=== PATIENT | female | born 1955 | race Caucasian/White ===

== ENCOUNTER 2017-10-10 21:20 | Inpatient (IN) ==
[2017-10-11] MEDS ORDERED: Ondansetron 4 MG/2 ML VIAL IVP PRN (01:44)
[2017-10-11] MEDS ORDERED: Acetaminophen 325 MG TABLET PO PRN (01:44)
[2017-10-11] MEDS ORDERED: Naloxone 0.4 MG/ML INJ IVP PRN (01:44)
--- NOTE | 2017-10-11 01:59 | Internal Med History&Physical ---
Date of Encounter: 10/11/17 Time of Encounter: 01:46 Assessment and Plan (1) Pneumonia Current visit: Yes Status: Acute - Bilateral opacities seen on CXR in [facility]. - Temperature of 99.7, WBC of 19.3, complaint of cough - PCN allergic, will give levaquin 750 mg Qday - Currently tolerating room air. Qualifiers: Pneumonia type: due to unspecified organism Laterality: bilateral Lung location: lower lobe of lung Qualified Code(s): J18.9 - Pneumonia, unspecified organism (2) Elevated troponin Current visit: Yes Status: Acute -Troponin of 0.07 in [facility] ED. - Will trend - Likely type II NSTEMI secondary to CHF vs PNA (3) CHF exacerbation Current visit: Yes Status: Acute - Pt denies history of CHF however ED note in ED shows history of CAD with UT in May. - BNP >2000 - Admits to orthopnea but denies LE edema - Will give lasix 40 mg IV Qday and order echocardiogram. - No cardiac workup in past chart review. Qualifiers: Congestive heart failure type: unspecified congestive heart failure type Qualified Code(s): I50.9 - Heart failure, unspecified (4) Anemia Current visit: Yes Status: Chronic - H/H of 9.0/28.9, mcv of 81. - Likely result of anemia of chronic disease vs iron deficiency - No complaints at this time. - Will monitor Qualifiers: Anemia type: iron deficiency Iron deficiency anemia type: unspecified iron deficiency Qualified Code(s): D50.9 - Iron deficiency anemia, unspecified (5) DVT prophylaxis Current visit: Yes Status: Acute - Heparin 5000 units q12 Internal Medicine - H&P: HPI Chief complaint: SOB Admitted From: Hospital to Hospital Transfer Plans for Post Hospital Care: Home History of present illness: Ms. Rollins is a 62 year old female who presents from [place] ED with a complaint of SOB. During time of interview, pt appears confused and does not appear to be a reliable historian. When prompted, she admits to some SOB that brought her to ED. Per [facility] ED note, she reported 5/10 chest pain with her difficulty breathing. Brother had reported concern for percocet overdose following hip surgery on 09/15/17. Pill count at [facility] showed 1 percocet left , filled 10/01, 30 pill supply. She states to this interviewer that she is unsure what she takes for pain but does handle her medications herself. She reportedly lives with brother and sister in law who are not present at time of interview. Pt reports no chest pain, LE edema, fevers, chills, nausea, vomiting , weakness, numbness, tingling during time of interview, but does admit to non productive cough and orthopnea. She reportedly has a hx of DM2, COPD, CHF, CAD with UT in May of 2017. In the [facility] ED, pt was mildly febrile at 99.7, tachycardic at 104, and HTN at 174/87. Labs showed WBC of 19.3 with left shift, H/H of 9.0/28.9, K of 3.4, troponin of 0.07, BNP of 2920. UA negative for infection. UDS positive for opiates and oxycodone but negative for benzos. She reportedly takes xanax at home. CXR showed bilateral airspace disease most compatible for pulmonary edema but cannot rule out PNA. Past Med Surg Social Fam HX - Past Medical History Medical history: arthritis, cancer, CHF, COPD, DVT, diabetes, hyperlipidemia, hypertension, myocardial infarction Psychiatric history: anxiety, depression - Past Surgical History Surgical History: hip replacement - Social History Smoking Status: Current every day smoker Smokeless Tobacco Status: No Alcohol use: none Drug use: none - Family History Mother History Unknown: Yes Father History Unknown: Yes Internal Medicine - H&P: Meds Clopidogrel [Plavix] 75 mg PO DAILY 12/07/15 [History] Dicyclomine [Bentyl] 10 mg PO TID PRN 12/07/15 [History] Gabapentin [Neurontin] 600 mg PO TID 12/07/15 [History] Insulin Glargine [Lantus] 35 unit SQ BID 12/07/15 [History] Paroxetine HCl [Paroxetine] 40 mg PO DAILY 12/07/15 [History] HYDROcodone/Acet 10/325 mg [[place] 10-325 mg] 1 tab PO Q4H PRN #28 tablet [Rx] ALPRAZolam [Xanax 0.5 MG Tablet] 0.5 mg PO TID 05/31/17 [History] Potassium Chloride [K-Tab ER] 20 meq PO DAILY 05/31/17 [History] Aspirin [Lo-Dose Aspirin EC] 81 mg PO DAILY 06/22/17 [History] Atorvastatin [Lipitor] 40 mg PO HS 06/22/17 [History] Furosemide [Lasix] 40 mg PO DAILY 06/22/17 [History] Lisinopril [Zestril] 2.5 mg PO DAILY 06/22/17 [History] Meloxicam 15 mg PO DAILY 06/22/17 [History] Metoprolol [Lopressor] 75 mg PO DAILY 06/22/17 [History] Promethazine [Phenergan] 12.5 mg PO Q8HR 06/22/17 [History] Carvedilol 12.5 mg PO BID 10/10/17 [History] Omeprazole [PriLOSEC] 40 mg PO DAILY 10/10/17 [History] OxyCODONE/APAP 10/325 [Percocet 10/325 MG] 1 each PO Q6HR PRN 10/10/17 [History] 3 Allergy/AdvReac Type Severity Reaction Status Date / Time Penicillins [PCN] Allergy Hives Verified 12/07/15 22:07 NSAIDS (Non-Steroidal AdvReac Palpitation Verified 05/31/17 21:56 Anti-Inflamma s ROS unobtainable: due to mental status All Systems PM: A 10-system review of systems was performed and is negative for pertinent findings except as documented above in the HPI. - Constitutional Constitutional: no anorexia, no excessive sweating, no fatigue, no fever(s), no weakness - Cardiovascular Cardiovascular ROS IM: dyspnea, orthopnea, no chest pain, no diaphoresis, no edema, no lightheadedness - Respiratory Respiratory: cough, dyspnea, no dyspnea on exertion, no excessive phlegm production, no change in phlegm color - Gastrointestinal Gastrointestinal: no abdominal pain, no constipation, no diarrhea, no nausea, no vomiting - Genitourinary Genitourinary: no dysuria - Musculoskeletal Musculoskeletal ROS IM: no muscle weakness, no numbness, no tingling - Neurological Neurological ROS: no numbness, no tingling, no weakness - Constitutional Vitals: Temp Pulse Resp BP Pulse Ox 99.2 F 114 18 177/82 95 10/11/17 00:05 10/11/17 00:05 10/11/17 00:05 10/11/17 00:05 10/11/17 00:05 Exam: Gen.: Vitals noted. No acute distress. AAOx0. Skin warm to touch HEENT: PERRL, oropharynx clear, Normocephalic, atraumatic, dry mucus membranes Cardiac: RRR, no murmur, +S1/S2. Mildly tachycardic Pulmonary: Bilteral rales present in bases. Non labored breathing. Tolerating room air. equal chest expansion Abdomen: soft, mildly tender diffusely, BS noted, no guarding Extremities: no BLE edema, nontender calf, no cyanosis or clubbing Neuro: A&Ox0, moves all extremities, no focal deficits Psych: Confused appearing. unable to answer questions
[2017-10-11] MEDS: *HR* HYDROcodone/Acet 5/325 mg TABLET PO PRN ×2 (04:24→17:26)
[2017-10-11 04:26] LABS: Basophils % 0.2 %; Hematocrit 30.3 % (35.3-44.9); Hemoglobin 9.5 g/dL (11.5-15.4); Immature Granulocytes % 0.6 % (0-4); Lymphocytes # 1.2 K/mcL (0.6-4.6); Lymphocytes % 5.5 %; Mean Corpuscular HGB Conc 31.4 g/dL (31.6-35.5); Mean Corpuscular Hemoglobin 25.2 pg (28.0-33.3); Mean Corpuscular Volume 80.4 fL (83.0-100.0); Mean Platelet Volume 8.8 fL (9.4-12.4); Monocytes # 1.1 K/mcL (0.0-1.3); Monocytes % 5.2 %; Neutrophils # 18.8 K/mcL (1.6-8.9); Platelet Count 618 K/mcL (140-400); Red Blood Count 3.77 M/mcL (3.82-4.97); Red Cell Distribution Width 17.5 % (11.5-14.5); Segmented Neutrophils % 88.5 %
[2017-10-11 04:39] LABS: BUN/Creatinine Ratio 11 (6-26); Blood Urea Nitrogen 8 mg/dL (7-20); Calcium 9.2 mg/dL (8.6-10.8); Carbon Dioxide 21 mEq/L (19-29); Chloride 103 mEq/L (98-109); Glucose 204 mg/dL (70-99); Magnesium 1.4 mg/dL (1.6-2.6); Osmolality,Calculated 294 (280-300); Potassium 3.7 mEq/L (3.5-4.5); Sodium 140 mEq/L (136-145); eGFR For African Americans > 60 (> 60); eGFR For Non-African Americans > 60 (> 60)
[2017-10-11] MEDS ORDERED: *HR* Heparin 5,000 UNIT/ML VIAL IVP ONE (04:54)
[2017-10-11] MEDS ORDERED: *HR* Heparin 5,000 UNIT/ML VIAL IVP PRN ×2 (04:54)
--- NOTE | 2017-10-11 05:04 | Event Note ---
Date of Encounter: 10/11/17 Time of Encounter: 05:03 Patient seen and examined. CHF exacerbation and CAP. Troponin increased to 0.2 so I will start heparin drip. EKG without ST segment shifts.
[2017-10-11] MEDS: Heparin 25,000 UNIT/500 ML D5W 25,000 UNIT/500 ML MLS IVC SCH (05:34)
[2017-10-11 05:52] LABS: INR 1.2; Prothrombin Time 13.4 Seconds (9.4-12.1)
[2017-10-11 05:55] LABS: Activated Partial Thrombo Time 26.9 Seconds (26.0-36.0)
[2017-10-11] MEDS: Aspirin Enteric Coated 81 MG Tablet PO SCH (07:58)
[2017-10-11] MEDS: Insulin LISPRO 300 UNITS/3 ML VIAL SQ SCH ×4 (07:58→21:56)
[2017-10-11] MEDS: Aztreonam 1,000 MG in Water for inj. (sterile) 10 ML IVP SCH ×2 (08:03→17:16)
--- NOTE | 2017-10-11 08:48 | Cardiology Consult Note ---
<Angela Camilo - Last Filed: 10/11/17 10:39> Date of Encounter: 10/11/17 Time of Encounter: 10:26 Assessment and Plan (1) Elevated troponin Current Visit: Yes Status: Acute Presented with chest pain, SOB, and AMS. Vitals: From telemetry average HR over last 12 hrs was 123bpm, in sinus rhythm with PVs and PACs. Weight gain of 8lbs since 09/29/17 office visit. Labs: WB 21.3, BNP 2920. Troponin= 0.46 ( 0.2, 0.07) . Creatinine = 0.76. CXR reports bilateral airspace disease most compatible with pulmonary edema and pneumonia is also possible. Patient diagnosed with CHF and pneumonia. Placed on Lasix 40mg IVP daily and heparin drip. Elevated troponins most likely secondary to demand ischemia 2/2 CHF, pneumonia, and SIRS. With Current presentation, patient does not need a cath at this time, will await echo and records from [facility] for further recommendations. Plan: - continue Heparin drip, keep on for a minimal of 48 hrs -diet: cardiac diet - echo pending results - continue telemetry - continue trending troponins - continue BB, ASA, Coreg, Plavix, Statin. - awaiting further discussion with with Dr. Breen (2) CHF exacerbation Current Visit: Yes Status: Acute shortness of breath and chest pain with a BMP= 2092 and an increase in weight from outpatient visit 09/29/17 to now is 8lbs. Diagnosed with CHF exacerbation. Previous EF from 2013 within normal limits. Awaiting echo results. Currently on Lasix 40mg IVP daily. Plan: - continue Lasix 40mg IVP daily - awaiting echo results Qualifiers: Congestive heart failure type: unspecified congestive heart failure type Qualified Code(s): I50.9 - Heart failure, unspecified (3) Anemia Current Visit: Yes Status: Chronic Patient is chronically anemic, highest hemoglobin in the last 3 years in [facility] was 11.2. MCV currently 80.4, previously in the 60s. No obvious source of bleeding. Consider work up with iron studies. Qualifiers: Anemia type: iron deficiency Iron deficiency anemia type: unspecified iron deficiency Qualified Code(s): D50.9 - Iron deficiency anemia, unspecified (4) Pneumonia Current Visit: Yes Status: Acute Qualifiers: Pneumonia type: due to unspecified organism Laterality: bilateral Lung location: lower lobe of lung Qualified Code(s): J18.9 - Pneumonia, unspecified organism Discussion w patient/family: The assessment and plan as outlined above was discussed with the patient and/or family members who expressed understanding and agreement. All questions were answered. Thank you for involving us in the care of your patient. Please call with any questions. History of Present Illness Consult date: 10/11/17 Requesting physician: Donn Duarte Consult reason: elevated troponin History of present illness: Ms. Rollins is a 62 year old female pmh of DM2, HTN, COPD, DVT, and CAD with [facility] mid RCA 2013 and [place] in May 2017 ([facility] Vasquez ACCOUNT RETENTION REPRESENTATIVE 06/15/17 , 25% blockage but no cath report found) complaining of shortness of breath and chest pain. Patient is currently still having altered mental status and is A&O x 1. Patient when asked if she is having chest pain states a little bit and I asked her to point to where and she pointed to her finger. CXR reports bilateral airspace disease most compatible with pulmonary edema and pneumonia is also possible. Patient was found to have increasing elevated troponin 0.07, 0.20, 0.46. BNP was elevated to 2920. Creatinine 0.76. Patient placed on heparin drip. Given Lasix 40mg IVP. Echo is pending. Cardiac testing: Per Pedro's [facility] note: Dr. Luna cath in May, 25% blockage, hx of stents x 6. Echo 06/2014 showed [id number]%, moderately dilated left atrium.Thickened, trileaflet aortic valve with focal calcification of the LCC and mild aortic stenosis. Mild-moderte tricuspid regurgitation. C 11/2013 There is severe single vessel coronary artery disease (RCA).The left ventricle is preserved with normal contractility, EF 65%Successful PTCA/Drug- Eluting Stent placement in the proximal to mid RCA. Past Med Surg Social Fam HX - Past Medical History Medical history: arthritis, cancer, CHF, COPD, DVT, diabetes, hyperlipidemia, hypertension, myocardial infarction Psychiatric history: anxiety, depression - Past Surgical History Surgical History: hip replacement - Social History Smoking Status: Current every day smoker Smokeless Tobacco Status: No Alcohol use: none Drug use: none - Family History Mother History Unknown: Yes Father History Unknown: Yes Medications and Allergies Clopidogrel [Plavix] 75 mg PO DAILY 12/07/15 [History] Dicyclomine [Bentyl] 10 mg PO TID PRN 12/07/15 [History] Gabapentin [Neurontin] 600 mg PO TID 12/07/15 [History] Insulin Glargine [Lantus] 35 unit SQ BID 12/07/15 [History] Paroxetine HCl [Paroxetine] 40 mg PO DAILY 12/07/15 [History] HYDROcodone/Acet 10/325 mg [[place] 10-325 mg] 1 tab PO Q4H PRN #28 tablet [Rx] ALPRAZolam [Xanax 0.5 MG Tablet] 0.5 mg PO TID 05/31/17 [History] Potassium Chloride [K-Tab ER] 20 meq PO DAILY 05/31/17 [History] Aspirin [Lo-Dose Aspirin EC] 81 mg PO DAILY 06/22/17 [History] Atorvastatin [Lipitor] 40 mg PO HS 06/22/17 [History] Furosemide [Lasix] 40 mg PO DAILY 06/22/17 [History] Lisinopril [Zestril] 2.5 mg PO DAILY 06/22/17 [History] Meloxicam 15 mg PO DAILY 06/22/17 [History] Metoprolol [Lopressor] 75 mg PO DAILY 06/22/17 [History] Promethazine [Phenergan] 12.5 mg PO Q8HR 06/22/17 [History] Carvedilol 12.5 mg PO BID 10/10/17 [History] Omeprazole [PriLOSEC] 40 mg PO DAILY 10/10/17 [History] OxyCODONE/APAP 10/325 [Percocet 10/325 MG] 1 each PO Q6HR PRN 10/10/17 [History] 3 Allergy/AdvReac Type Severity Reaction Status Date / Time Penicillins [PCN] Allergy Hives Verified 12/07/15 22:07 NSAIDS (Non-Steroidal AdvReac Palpitation Verified 05/31/17 21:56 Anti-Inflamma s All Systems Review: A 10-system review of systems was performed and is negative for pertinent findings except as documented above in the HPI. Physical Examination Vital Signs, Last 4 Hours Temp Pulse Resp BP Pulse Ox 10/11/17 07:21 98.9 F 127 18 177/97 94 General: Conversant, Other (A&O x1, knows her name ) HEENT: Atraumatic, Normocephaly, Mucus Membranes Moist Neck: No JVD, Normal carotid pulses Cardiac: Reg Rate and Rhythm, Normal S1 and S2, No Murmur, Other Lungs: Normal Breath Sounds, No Wheeze, Rales, Rhonchi Neuro: Alert and responsive, No focal deficits noted Abdomen: Soft, Non-Tender Skin: No rashes noted on visualized skin Extremities: No Clubbing, No Cyanosis, No Edema, Normal Pulses, Other (will not straighten R knee completely, ) Results 10/11/17 04:16 10/11/17 04:16 Lab Results 10/11/17 10/11/17 10/11/17 04:16 04:16 04:16 WBC 21.3 H Hgb 9.5 L Hct 30.3 L Plt Count 618 H INR APTT Sodium 140 Potassium 3.7 Chloride 103 Carbon Dioxide 21 BUN 8 Creatinine 0.76 Glucose 204 H Calcium 9.2 Magnesium 1.4 L Troponin I 0.20 H* 10/11/17 05:33 WBC Hgb Hct Plt Count INR 1.2 APTT 26.9 Sodium Potassium Chloride Carbon Dioxide BUN Creatinine Glucose Calcium Magnesium Troponin I - Imaging and Cardiology Chest Xray: report reviewed - EKG Interpretation EKG results cardiology: personally reviewed (sinus tachycardia) Consult Discharge Plan - Plan Referrals: Jessica Vasquez, ACCOUNT RETENTION REPRESENTATIVE [Primary Care Provider] - <KraigadrianKeyana - Last Filed: 10/11/17 18:03> Date of Encounter: 10/11/17 - Attending Attestation I examined this patient and my medical decision-making was reviewed with the Resident Physician. I agree with the documented findings, disposition and treatment plan as described except to the extent set forth below. Ms. Rollins presents with SOB and AMS, found to have pneumonia and meets SIRS criteria. Incidentally, had elevated troponin peak at 0.46 in this setting. The patient denies chest pain to me (oriented presently to place and person but not time). Does admit to recent development of worsening SOB. She has known CAD having recently undergone cath at [facility] in May 2017. Previous assessment of LVEF here at [place] was normal. Recommend checking echo and obtaining records from [facility]. Ok to continue IV diuresis, BB, statin and antiplatelet agent. She is anticoagulated with heparin. Assessment and Plan Discussion w patient/family: The assessment and plan as outlined above was discussed with the patient and/or family members who expressed understanding and agreement. All questions were answered. Thank you for involving us in the care of your patient. Please call with any questions. History of Present Illness History of present illness: Ms. Rollins is a 62 year old female All Systems Review: A 10-system review of systems was performed and is negative for pertinent findings except as documented above in the HPI. Physical Examination Vital Signs, Last 4 Hours Temp Pulse Resp BP Pulse Ox 10/11/17 15:20 98.4 F 106 16 129/80 96 Results 10/11/17 04:16 10/11/17 04:16 Lab Results 10/11/17 10/11/17 10/11/17 04:16 04:16 04:16 WBC 21.3 H Hgb 9.5 L Hct 30.3 L Plt Count 618 H INR APTT Sodium 140 Potassium 3.7 Chloride 103 Carbon Dioxide 21 BUN 8 Creatinine 0.76 Glucose 204 H Calcium 9.2 Magnesium 1.4 L Troponin I 0.20 H* 10/11/17 10/11/17 10/11/17 05:33 10:02 12:21 WBC Hgb Hct Plt Count INR 1.2 APTT 26.9 39.5 H Sodium Potassium Chloride Carbon Dioxide BUN Creatinine Glucose Calcium Magnesium Troponin I 0.46 H* 10/11/17 16:28 WBC Hgb Hct Plt Count INR APTT Sodium Potassium Chloride Carbon Dioxide BUN Creatinine Glucose Calcium Magnesium Troponin I 0.41 H*
[2017-10-11] MEDS ORDERED: *HR* Metoprolol 5 MG/5 ML VIAL IVP ONE ×2 (09:20→09:28)
[2017-10-11] MEDS: Levofloxacin 750 MG/150 ML 750 MG/150 ML BAG IVPB SCH (12:13)
[2017-10-11] MEDS: Furosemide 40 MG/4 ML VIAL IVP SCH (12:13)
--- NOTE | 2017-10-11 14:08 | Event Note ---
Date of Encounter: 10/11/17 Time of Encounter: 12:20 Patient is a 62y/o female admitted for shortness of breath secondary to CHF decompensation, elevated TNI, and PNA. She is seen and examined at bedside. It is unclear if the patient has been compliant with her home medications and I am unable to reach any family member. She was noted to remain tachycardic and hypertensive despite her morning dose of carvedilol due to which one time dose of Lopressor was given, she responded well to therapy. She is also noted to have worsening TNI and cardiology is on board. She is to continue heparin gtt, awaiting echo results, increased home dose of Carvedilol to 25mg PO BID. Pt reports of feeling better since her hospitalization. noted to have hypomagnesemia, Mg supplemented will continue to monitor electrolytes and replace as needed will continue empiric IV abx for PNA and follow up blood cultures
[2017-10-12] MEDS: Aztreonam 1,000 MG in Water for inj. (sterile) 10 ML IVP SCH ×3 (00:02→16:02)
[2017-10-12] MEDS: Heparin 25,000 UNIT/500 ML D5W 25,000 UNIT/500 ML MLS IVC SCH ×2 (00:04→21:52)
[2017-10-12] MEDS: *HR* HYDROcodone/Acet 5/325 mg TABLET PO PRN ×2 (00:18→16:11)
[2017-10-12 04:10] LABS: Basophils % 0.2 %; Eosinophils % 0.2 %; Hematocrit 30.1 % (35.3-44.9); Hemoglobin 9.2 g/dL (11.5-15.4); Immature Granulocytes % 0.5 % (0-4); Lymphocytes # 1.7 K/mcL (0.6-4.6); Lymphocytes % 13.7 %; Mean Corpuscular HGB Conc 30.6 g/dL (31.6-35.5); Mean Corpuscular Hemoglobin 24.6 pg (28.0-33.3); Mean Corpuscular Volume 80.5 fL (83.0-100.0); Mean Platelet Volume 8.9 fL (9.4-12.4); Monocytes # 0.8 K/mcL (0.0-1.3); Monocytes % 6.8 %; Neutrophils # 9.5 K/mcL (1.6-8.9); Platelet Count 570 K/mcL (140-400); Red Blood Count 3.74 M/mcL (3.82-4.97); Red Cell Distribution Width 17.5 % (11.5-14.5); Segmented Neutrophils % 78.6 %
[2017-10-12 04:18] LABS: BUN/Creatinine Ratio 14 (6-26); Blood Urea Nitrogen 12 mg/dL (7-20); Calcium 9.1 mg/dL (8.6-10.8); Carbon Dioxide 30 mEq/L (19-29); Chloride 98 mEq/L (98-109); Glucose 198 mg/dL (70-99); Magnesium 1.6 mg/dL (1.6-2.6); Osmolality,Calculated 293 (280-300); Phosphorous 3.4 mg/dL (2.3-4.7); Potassium 3.1 mEq/L (3.5-4.5); Sodium 139 mEq/L (136-145); eGFR For African Americans > 60 (> 60); eGFR For Non-African Americans > 60 (> 60)
[2017-10-12] MEDS: Insulin LISPRO 300 UNITS/3 ML VIAL SQ SCH ×5 (08:30→21:47)
[2017-10-12] MEDS: Levofloxacin 750 MG/150 ML 750 MG/150 ML BAG IVPB SCH (08:30)
[2017-10-12] MEDS: Furosemide 40 MG/4 ML VIAL IVP SCH (08:31)
[2017-10-12] MEDS: Aspirin Enteric Coated 81 MG Tablet PO SCH (08:31)
--- NOTE | 2017-10-12 13:55 | Cardiology Progress Note ---
<Angela Camilo - Last Filed: 10/12/17 16:51> Date of Encounter: 10/12/17 Time of Encounter: 10:00 Assessment and Plan (1) Elevated troponin Current Visit: Yes Status: Acute Presented with chest pain, SOB, and AMS. Vitals: From telemetry average HR over last 12 hrs was 123bpm, in sinus rhythm with PVs and PACs. Weight gain of 8lbs since 09/29/17 office visit. Labs: WB 21.3, BNP 2920. Troponin= 0.41( 0.2, 0.07, 0.46). Creatinine = 0.76. CXR reports bilateral airspace disease most compatible with pulmonary edema and pneumonia is also possible. Patient diagnosed with CHF and pneumonia. Placed on Lasix 40mg IVP daily and heparin drip. Elevated troponins most likely secondary to demand ischemia 2/2 CHF, pneumonia, and SIRS. Echo today showed EF 30% and global severe hypokinesis. Obtained records from [facility] and Echo from 06/23/17 showed EF 20-25% and cath was performed at that time and no intervention was performed. Recommend medical management. Plan: - can d/c Heparin drip and initiate DVT prophylaxis - diet: cardiac diet - continue telemetry - continue BB, ASA, Coreg, Plavix, Statin. - awaiting Dr. Breen's further medical management optimization recommendations (2) CHF exacerbation Current Visit: Yes Status: Acute shortness of breath and chest pain with a BMP= 2092 and an increase in weight from outpatient visit 09/29/17 to now is 8lbs. Diagnosed with CHF exacerbation. Previous EF from 2013 within normal limits. Currently on Lasix 40mg IVP daily. Echo results from today showed EF 30% grossly, severe global hypokinesis, mild left ventricular diastolic dysfunction. mild to moderate calcified aortic valve leaflets. Plan: - continue Lasix 40mg IVP daily Qualifiers: Congestive heart failure type: unspecified congestive heart failure type Qualified Code(s): I50.9 - Heart failure, unspecified (3) Anemia Current Visit: Yes Status: Chronic Patient is chronically anemic, highest hemoglobin in the last 3 years in [facility] was 11.2. MCV currently 80.4, previously in the 60s. No obvious source of bleeding. Consider work up with iron studies. Qualifiers: Anemia type: iron deficiency Iron deficiency anemia type: unspecified iron deficiency Qualified Code(s): D50.9 - Iron deficiency anemia, unspecified (4) Pneumonia Current Visit: Yes Status: Acute Qualifiers: Pneumonia type: due to unspecified organism Laterality: bilateral Lung location: lower lobe of lung Qualified Code(s): J18.9 - Pneumonia, unspecified organism Discussion w patient/family: The assessment and plan as outlined above was discussed with the patient and/or family members who expressed understanding and agreement. All questions were answered. Thank you for involving us in the care of your patient. Please call with any questions. Subjective Principal diagnosis: CHF Interval history: Today patient is still altered as she is A&O x 1, she is able to state her name. Patient denies pain anywhere including chest pain. Objective Vital Signs, Last 4 Hours Temp Pulse Resp BP Pulse Ox 10/12/17 13:46 99.1 F 105 15 89/60 95 General: Conversant, No Apparent Distress HEENT: Atraumatic, Normocephaly, Mucus Membranes Moist Neck: No JVD Cardiac: Reg Rate and Rhythm, No Murmur, Other (S3 heard ) Lungs: Normal Breath Sounds, No Wheeze, Rales, Rhonchi Neuro: Alert and responsive, No focal deficits noted Abdomen: Soft, Non-Tender Skin: No rashes noted on visualized skin Musculoskeletal: No Chest Wall Tenderness Extremities: No Clubbing, No Cyanosis, No Edema, Normal Pulses Results 10/12/17 03:55 10/12/17 03:55 Lab Results 10/11/17 10/11/17 10/12/17 16:28 19:40 03:55 WBC 12.1 H Hgb 9.2 L Hct 30.1 L Plt Count 570 H APTT 95.6 H D Sodium Potassium Chloride Carbon Dioxide BUN Creatinine Glucose Calcium Magnesium Troponin I 0.41 H* 10/12/17 10/12/17 10/12/17 03:55 04:30 10:39 WBC Hgb Hct Plt Count APTT 43.8 H D 39.3 H Sodium 139 Potassium 3.1 L Chloride 98 Carbon Dioxide 30 H BUN 12 Creatinine 0.86 Glucose 198 H Calcium 9.1 Magnesium 1.6 Troponin I Consult Discharge Plan - Plan Referrals: Jessica Vasquez, SENIOR ANIMAL TRAINER [Primary Care Provider] - <Keyana Breen - Last Filed: 10/12/17 17:58> Date of Encounter: 10/12/17 Assessment and Plan Discussion w patient/family: I examined this patient and my medical decision-making was reviewed with the Resident Physician. I agree with the documented findings, disposition and treatment plan. Ms. Rollins's echo returned with reduced LV systolic function, EF 30%. Records obtained from [facility] document EF 20-25%. She underwent LHC in which intervention was not performed. Further ischemic workup is not warranted at this time. Troponin elevation appears secondary to acute systolic heart failure. Furthermore, the patient's mentation is altered - she is not oriented to person , place or time today. Recommend conservative medical management. She is net negative 2L - continue another 24h of IV diuresis. Consider repeat CXR tomorrow for re-evaluation of pulmonary edema and BNP. If improved, would recommend transitioning to oral diuretic. Otherwise, continue antiplatelet therapy and BB. Will add low dose ACEI. Objective Vital Signs, Last 4 Hours Temp Pulse Resp BP Pulse Ox 10/12/17 16:45 98.0 F 90 15 119/70 94 10/12/17 14:13 98 102/68 Results 10/12/17 03:55 10/12/17 03:55 Lab Results 10/11/17 10/12/17 10/12/17 19:40 03:55 03:55 WBC 12.1 H Hgb 9.2 L Hct 30.1 L Plt Count 570 H APTT 95.6 H D Sodium 139 Potassium 3.1 L Chloride 98 Carbon Dioxide 30 H BUN 12 Creatinine 0.86 Glucose 198 H Calcium 9.1 Magnesium 1.6 10/12/17 10/12/17 04:30 10:39 WBC Hgb Hct Plt Count APTT 43.8 H D 39.3 H Sodium Potassium Chloride Carbon Dioxide BUN Creatinine Glucose Calcium Magnesium
--- NOTE | 2017-10-12 14:06 | Internal Med Progress Note ---
Date of Encounter: 10/12/17 Time of Encounter: 11:55 - Assessment and plan (1) Elevated troponin Current Visit: Yes Status: Acute Assessment and plan: Given CHF decompensation, elevated TNI can be secondary to demand ischemia Cardiology on board awaiting follow up in regards to echo findings and further management will continue heparin gtt for a total of 48hours continue BB, ASA, Statin, Plavix (2) CHF exacerbation Current Visit: Yes Status: Acute Assessment and plan: Echo reported LVEF of 30% with severe global hypokinesis, mild LV diastolic dysfunction continue IV diuresis cardiology on board and consultation appreciated Qualifiers: Congestive heart failure type: unspecified congestive heart failure type Qualified Code(s): I50.9 - Heart failure, unspecified (3) Pneumonia Current Visit: Yes Status: Acute Assessment and plan: Leukocytosis improving will continue empiric IV abx will f/u blood culture report Qualifiers: Pneumonia type: due to unspecified organism Laterality: bilateral Lung location: lower lobe of lung Qualified Code(s): J18.9 - Pneumonia, unspecified organism (4) Hypokalemia Current Visit: Yes Status: Acute Assessment and plan: K supplemented continue to monitor electrolytes and replace as needed (5) Anemia Current Visit: Yes Status: Chronic Assessment and plan: H&H low but acceptable no acute bleeding reported at this time will continue to monitor will obtain iron studies, ferritin, folate, vit B12. Qualifiers: Anemia type: iron deficiency Iron deficiency anemia type: unspecified iron deficiency Qualified Code(s): D50.9 - Iron deficiency anemia, unspecified (6) DVT prophylaxis Current Visit: Yes Status: Acute - Subjective Interval history: Patient seen and examined at bedside. patient resting in chair and reports of feeling better compared to previous day. Pt only oriented to self. Denies any pain at this time. 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 Absent: respiratory distress, wheezes - Cardiovascular Cardiovascular exam: Present: RRR, +S1, +S2 - GI/Abdominal GI/Abdominal exam: Present: normal bowel sounds, soft, no peritoneal signs. Absent: distended, tenderness - Extremities Exam Extremities exam: Present: warm, radial pulses palpable and symmetrical. Absent : calf tenderness - Neurological Exam Neurological exam: Present: alert - Psychiatric Psychiatric exam: Present: normal affect, normal mood Internal Medicine: Result - Labs CBC & Chem 7: 10/12/17 03:55 10/12/17 03:55 Labs: Short CBC 10/12/17 Range/Units 03:55 WBC 12.1 H (4.3-11.1) K/mcL Hgb 9.2 L (11.5-15.4) g/dL Hct 30.1 L (35.3-44.9) % Plt Count 570 H (140-400) K/mcL Neutrophils # 9.5 H (1.6-8.9) K/mcL BMP 10/12/17 03:55 Sodium 139 Potassium 3.1 L Chloride 98 Carbon Dioxide 30 H BUN 12 Creatinine 0.86 Glucose 198 H Calcium 9.1 Cardiac Enzymes 10/11/17 Range/Units 16:28 Troponin I 0.41 H* (0-0.03) ng/mL - ABG Interpretation ABG results: PT/INR, D-dimer PT 13.4 Seconds (9.4-12.1) H 10/11/17 05:33 - Impressions Impressions Echocardiogram 10/11/17 02:27 Impressions: LVEF 30%. Grossly, severe global hypokinesis. Mild left ventricular diastolic dysfunction. Normal right ventricular structure and function. Mild to moderately calcified aortic valve leaflets. No aortic stenosis detected by Doppler. Gradients may be underestimated. No evidence of pulmonary hypertension. Future studies should be completed with contrast enhancement. LV function has decreased compared to prior studies from 2014. Left Ventricular Wall Motion: Rest Echo Findings The apex, apical inferior, mid inferior, basal inferior, apical anterior, mid anterior, basal anterior, apical septal, mid inferior septal, basal inferior septal, apical lateral, mid anterior lateral, basal anterior lateral, mid anterior septal, mid inferior lateral, basal anterior septal and basal inferior lateral shannon were hypokinetic. Findings: Study Quality * Technically sub-optimal due to poor echocardiographic windows. ECG Findings * Normal sinus rhythm. Left Ventricle * LVEF 30%. Grossly, severe global hypokinesis. * Normal LV chamber size. * Mild left ventricular diastolic dysfunction. Right Ventricle * Normal right ventricular structure and function. Left Atrium * Moderate to severely dilated left atrium. Right Atrium * Mildly dilated right atrium. Interatrial Septum * Interatrial septum not well evaluated. Aortic Valve * Trileaflet aortic valve. * Mild to moderately calcified aortic valve leaflets. * No aortic regurgitation. * No aortic stenosis. Mitral Valve * Mitral valve not well visualized. * Trace mitral regurgitation. * No mitral stenosis. Tricuspid Valve * Normal tricuspid valve structure and function. * Trace tricuspid regurgitation. * No evidence of pulmonary hypertension. Pulmonic Valve * Pulmonic valve not well visualized. Aorta * Normally sized aortic root. Pericardium * The pericardium appears normal. IVC * Normal IVC dimensions and inspiratory collapse. Pulmonary Artery * Normal visualized portions of the main pulmonary artery. Consult Discharge Plan - Plan Referrals: Jessica Vasquez, NICOLETTE [Primary Care Provider] -
[2017-10-12] MEDS ORDERED: Dextrose Gel 15 GM PO PRN ×2 (14:16)
[2017-10-12] MEDS ORDERED: D5% in Water 1,000 ML IVC PRN (14:16)
[2017-10-12] MEDS ORDERED: *HR* Dextrose 50 % in Water (Syg) 50 ML SYRINGE IVP PRN (14:16)
[2017-10-12] MEDS: Gabapentin 300 MG CAPSULE PO SCH ×2 (16:02→20:33)
[2017-10-12] MEDS ORDERED: *HR* Promethazine 25 MG/ML VIAL IVP PRN (18:10)
[2017-10-12] MEDS ORDERED: Insulin DETEMIR 100 UNIT/ML X5UNITS SQ SCH (21:00)
[2017-10-13] MEDS: Aztreonam 1,000 MG in Water for inj. (sterile) 10 ML IVP SCH ×2 (00:07→07:53)
[2017-10-13 01:48] LABS: Basophils # 0.1 K/mcL (0.0-0.2); Basophils % 0.4 %; Eosinophils # 0.1 K/mcL (0.0-0.6); Eosinophils % 0.4 %; Hematocrit 29.8 % (35.3-44.9); Hemoglobin 9.1 g/dL (11.5-15.4); Immature Platelets 2.1 % (1.1-6.1); Lymphocytes # 2.2 K/mcL (0.6-4.6); Lymphocytes % 15.9 %; Mean Corpuscular HGB Conc 30.5 g/dL (31.6-35.5); Mean Corpuscular Hemoglobin 24.9 pg (28.0-33.3); Mean Corpuscular Volume 81.6 fL (83.0-100.0); Mean Platelet Volume 9.1 fL (9.4-12.4); Monocytes # 1.2 K/mcL (0.0-1.3); Monocytes % 8.7 %; Neutrophils # 10.2 K/mcL (1.6-8.9); Platelet Count 598 K/mcL (140-400); Red Blood Count 3.65 M/mcL (3.82-4.97); Red Cell Distribution Width 18.1 % (11.5-14.5); Segmented Neutrophils % 73.6 %
[2017-10-13 02:05] LABS: Hypochromasia Present (Not Present)
[2017-10-13 02:06] LABS: Anisocytosis 1+ (Not Present); Platelet Estimate Increased (Normal)
[2017-10-13 05:57] LABS: Magnesium 1.6 mg/dL (1.6-2.6); Potassium 3.1 mEq/L (3.5-4.5)
[2017-10-13 07:22] LABS: Folate 9.9 ng/mL (7.0-31.4)
[2017-10-13] MEDS: *HR* HYDROcodone/Acet 5/325 mg TABLET PO PRN (07:33)
[2017-10-13] MEDS: Furosemide 40 MG/4 ML VIAL IVP SCH (07:36)
[2017-10-13] MEDS: Insulin LISPRO 300 UNITS/3 ML VIAL SQ SCH ×4 (07:50→23:07)
[2017-10-13] MEDS: Gabapentin 300 MG CAPSULE PO SCH ×3 (07:53→23:04)
[2017-10-13] MEDS: Aspirin Enteric Coated 81 MG Tablet PO SCH (07:53)
[2017-10-13] MEDS: Levofloxacin 750 MG/150 ML 750 MG/150 ML BAG IVPB SCH (07:54)
--- NOTE | 2017-10-13 11:35 | Cardiology Progress Note ---
<Angela aCmilo - Last Filed: 10/13/17 11:28> Date of Encounter: 10/13/17 Time of Encounter: 10:00 Assessment and Plan (1) CHF exacerbation Current Visit: Yes Status: Acute shortness of breath and chest pain with a BMP= 2 and an increase in weight from outpatient visit 09/29/17 to now is 8lbs. Diagnosed with CHF exacerbation. Previous EF from 2013 within normal limits. Currently on Lasix 40mg IVP daily. Echo results from today showed EF 30% grossly, severe global hypokinesis, mild left ventricular diastolic dysfunction. mild to moderate calcified aortic valve leaflets. CXR today showed mild pulmonary vascular congestion. Despite seeing mild pulmonary vascular congestion patient is well diuresed based off of physical exam, output, and creatinine increase therefore we will decrease the Lasix to 20mg po daily. Recommend sending patient home on Lasix 20mg po daily. F/u with primary clerical associate at [facility] in 2-3 weeks. Plan: - decrease lasix to 20mg po daily - diet: cardiac diet - continue telemetry - continue BB, ASA, Coreg, Plavix, Statin. - f/u with primary clerical associate in 2-3 weeks Qualifiers: Congestive heart failure type: unspecified congestive heart failure type Qualified Code(s): I50.9 - Heart failure, unspecified (2) Elevated troponin Current Visit: Yes Status: Acute Presented with chest pain, SOB, and AMS. Vitals: From telemetry average HR over last 12 hrs was 123bpm, in sinus rhythm with PVs and PACs. Weight gain of 8lbs since 09/29/17 office visit. Labs: WB 21.3, BNP 2920. Troponin= 0.41( 0.2, 0.07, 0.46). Creatinine = 0.76. CXR reports bilateral airspace disease most compatible with pulmonary edema and pneumonia is also possible. Patient diagnosed with CHF and pneumonia. Placed on Lasix 40mg IVP daily and heparin drip. Elevated troponins most likely secondary to demand ischemia 2/2 CHF, pneumonia, and SIRS. Echo 10/13/17 showed EF 30% and global severe hypokinesis. Obtained records from [facility] and Echo from 06/23/17 showed EF 20-25% and cath was performed at that time and no intervention was performed. Recommend medical management. Plan: - decrease lasix to 20mg po daily - diet: cardiac diet - continue telemetry - continue BB, ASA, Coreg, Plavix, Statin. - f/u with primary clerical associate in 2-3 weeks (3) Anemia Current Visit: Yes Status: Chronic Patient is chronically anemic, highest hemoglobin in the last 3 years in [facility] was 11.2. MCV currently 80.4, previously in the 60s. Hemoglobin stable. No obvious source of bleeding. Consider work up with iron studies. Qualifiers: Anemia type: iron deficiency Iron deficiency anemia type: unspecified iron deficiency Qualified Code(s): D50.9 - Iron deficiency anemia, unspecified (4) Pneumonia Current Visit: Yes Status: Acute Qualifiers: Pneumonia type: due to unspecified organism Laterality: bilateral Lung location: lower lobe of lung Qualified Code(s): J18.9 - Pneumonia, unspecified organism Discussion w patient/family: The assessment and plan as outlined above was discussed with the patient and/or family members who expressed understanding and agreement. All questions were answered. Thank you for involving us in the care of your patient. Please call with any questions. Subjective Principal diagnosis: CHF Interval history: Today patient is doing much better and is A&Ox 3. Patient says she is feeling good today and back to her normal self. Objective Vital Signs, Last 4 Hours Temp Pulse Resp BP Pulse Ox 10/13/17 09:00 99.3 F 91 16 94/59 92 General: Conversant, No Apparent Distress HEENT: Atraumatic, Normocephaly, Mucus Membranes Moist Neck: No JVD Cardiac: Reg Rate and Rhythm, Normal S1 and S2, No Murmur Lungs: Normal Breath Sounds, No Wheeze, Rales, Rhonchi Neuro: Alert and responsive, No focal deficits noted Abdomen: Soft, Non-Tender Skin: No rashes noted on visualized skin Extremities: No Clubbing, No Cyanosis, No Edema, Normal Pulses Results 10/13/17 01:25 10/13/17 05:31 Lab Results 10/12/17 10/13/17 10/13/17 18:15 01:25 01:25 WBC 13.9 H Hgb 9.1 L Hct 29.8 L Plt Count 598 H APTT 84.1 H D 65.1 H Sodium Potassium Chloride Carbon Dioxide BUN Creatinine Glucose Calcium Magnesium 10/13/17 05:31 WBC Hgb Hct Plt Count APTT Sodium 137 Potassium 3.1 L Chloride 95 L Carbon Dioxide 31 H BUN 21 H Creatinine 1.12 H Glucose 197 H Calcium 9.0 Magnesium 1.6 Consult Discharge Plan - Plan Referrals: Jessica Vasquez, NICOLETTE [Primary Care Provider] - <Keyana Breen - Last Filed: 10/13/17 14:20> Date of Encounter: 10/13/17 Assessment and Plan Discussion w patient/family: I examined this patient and my medical decision-making was reviewed with the Resident Physician. I agree with the documented findings, disposition and treatment plan. Ms. Rollins's mentation is normal this morning. She is alert, conversant and oriented x 3. We discussed the findings of her echo this admission noting that LV systolic function is not new and was found to be decreased at [facility] in May of this year. She is able to corroborate that and remembers undergoing LHC at that time which did not warrant intervention. Recommend continued medical management at this time - LV systolic function mildly improved from prior study. She also appears euvolemic on exam today and renal function has started to decline - recommend transitioning to PO lasix. Continue BB, ACEI, statin and antiplatelet agent. Will sign off. She would like to follow up with [facility] Cardiology. Objective Vital Signs, Last 4 Hours Temp Pulse Resp BP Pulse Ox 10/13/17 12:46 99.3 F 78 16 90/55 92 Results 10/13/17 01:25 10/13/17 05:31 Lab Results 10/12/17 10/13/17 10/13/17 18:15 01:25 01:25 WBC 13.9 H Hgb 9.1 L Hct 29.8 L Plt Count 598 H APTT 84.1 H D 65.1 H Sodium Potassium Chloride Carbon Dioxide BUN Creatinine Glucose Calcium Magnesium 10/13/17 05:31 WBC Hgb Hct Plt Count APTT Sodium 137 Potassium 3.1 L Chloride 95 L Carbon Dioxide 31 H BUN 21 H Creatinine 1.12 H Glucose 197 H Calcium 9.0 Magnesium 1.6
[2017-10-13] MEDS: Furosemide 20 MG TABLET PO SCH ×2 (12:05→12:06)
[2017-10-13] MEDS: *HR* OxyCODONE/APAP 10/325 TABLET PO PRN ×2 (12:09→19:11)
--- NOTE | 2017-10-13 12:25 | Internal Med Progress Note ---
Date of Encounter: 10/13/17 Time of Encounter: 11:45 - Assessment and plan (1) Elevated troponin Current Visit: Yes Status: Acute Assessment and plan: Given CHF decompensation, elevated TNI can be secondary to demand ischemia Cardiology on board no acute surgical intervention, medical optimization continue BB, ASA, Statin, Plavix (2) CHF exacerbation Current Visit: Yes Status: Acute Assessment and plan: Echo reported LVEF of 30% with severe global hypokinesis, mild LV diastolic dysfunction cardiology on board and consultation appreciated d/kristine IV lasix and started PO lasix will continue to monitor strict I/Os, fluid restriction diet, daily weights Qualifiers: Congestive heart failure type: unspecified congestive heart failure type Qualified Code(s): I50.9 - Heart failure, unspecified (3) Pneumonia Current Visit: Yes Status: Acute Assessment and plan: Leukocytosis improving will continue empiric IV abx (Levaquin for a total of 7 days) will f/u blood culture report Qualifiers: Pneumonia type: due to unspecified organism Laterality: bilateral Lung location: lower lobe of lung Qualified Code(s): J18.9 - Pneumonia, unspecified organism (4) Hypokalemia Current Visit: Yes Status: Acute Assessment and plan: K supplemented continue to monitor electrolytes and replace as needed (5) Anemia Current Visit: Yes Status: Chronic Assessment and plan: H&H low but acceptable no acute bleeding reported at this time will continue to monitor iron studies consistent with iron def anemia, will start iron supplementation Qualifiers: Anemia type: iron deficiency Iron deficiency anemia type: unspecified iron deficiency Qualified Code(s): D50.9 - Iron deficiency anemia, unspecified (6) DVT prophylaxis Current Visit: Yes Status: Acute Assessment and plan: Heparin SQ - Subjective Interval history: Patient seen and examined at bedside. Sitting in bed and AAO x 3. States she has had episodes like this in the past where she becomes very confused. No overnight issues reported. Will d/c iv lasix and start on PO lasix likely d/c in am pending ECF placement Currently in agreement to going to ECF - Constitutional Vitals: Temp Pulse Resp BP Pulse Ox 99.3 F 91 16 94/59 92 10/13/17 09:00 10/13/17 09:00 10/13/17 09:00 10/13/17 09:00 10/13/17 09:00 General appearance: Present: A&O X 3, no acute distress, answers questions appropriately - Head Head exam: Present: atraumatic, normocephalic - Eye Eye exam: Present: normal appearance, conjuntiva pink, sclera anicteric - Respiratory Respiratory exam: Present: rales (minimal bibasilar rales-improved from previous day). Absent: respiratory distress, wheezes - Cardiovascular Cardiovascular exam: Present: RRR, +S1, +S2. Absent: diastolic murmur, gallop, rubs, systolic murmur - GI/Abdominal GI/Abdominal exam: Present: normal bowel sounds, soft, no peritoneal signs. Absent: distended, tenderness - Extremities Exam Extremities exam: Present: warm, radial pulses palpable and symmetrical. Absent : calf tenderness, pedal edema - Neurological Exam Neurological exam: Present: alert, oriented X3 - Psychiatric Psychiatric exam: Present: normal affect, normal mood Internal Medicine: Result - Labs CBC & Chem 7: 10/13/17 01:25 10/13/17 05:31 Labs: Short CBC 10/13/17 Range/Units 01:25 WBC 13.9 H (4.3-11.1) K/mcL Hgb 9.1 L (11.5-15.4) g/dL Hct 29.8 L (35.3-44.9) % Plt Count 598 H (140-400) K/mcL Neutrophils # 10.2 H (1.6-8.9) K/mcL BMP 10/13/17 05:31 Sodium 137 Potassium 3.1 L Chloride 95 L Carbon Dioxide 31 H BUN 21 H Creatinine 1.12 H Glucose 197 H Calcium 9.0 - ABG Interpretation ABG results: PT/INR, D-dimer PT 13.4 Seconds (9.4-12.1) H 10/11/17 05:33 - Impressions Impressions Chest X-Ray 10/13/17 08:27 IMPRESSION: Stable cardiomegaly. Mild pulmonary vascular congestion. Discoid atelectasis at the left lung base. Large hiatal hernia. D/ / Carson Cook MD / Carson Cook MD Interpreting Provider: Carson Cook MD Consult Discharge Plan - Plan Referrals: Jessica Vasquez, NICOLETTE [Primary Care Provider] -
[2017-10-13] MEDS: *HR* Heparin 5,000 UNIT/ML VIAL SQ SCH (16:52)
[2017-10-13] MEDS: ALPRAZolam 0.5 MG TABLET PO PRN (17:19)
[2017-10-13] MEDS ORDERED: *HR* Morphine 2 MG/ML SYRINGE IVP PRN (22:54)
[2017-10-14] MEDS: Insulin DETEMIR 100 UNIT/ML X5UNITS SQ SCH ×2 (00:49→22:45)
[2017-10-14] MEDS: ALPRAZolam 0.5 MG TABLET PO PRN (01:05)
[2017-10-14] MEDS: *HR* OxyCODONE/APAP 10/325 TABLET PO PRN ×3 (01:15→20:12)
[2017-10-14] MEDS: Insulin LISPRO 300 UNITS/3 ML VIAL SQ SCH ×5 (01:17→22:43)
[2017-10-14] MEDS: *HR* Heparin 5,000 UNIT/ML VIAL SQ SCH ×2 (05:25→17:53)
[2017-10-14 06:25] LABS: Basophils # 0.1 K/mcL (0.0-0.2); Basophils % 0.6 %; Eosinophils # 0.2 K/mcL (0.0-0.6); Hematocrit 29.6 % (35.3-44.9); Hemoglobin 8.7 g/dL (11.5-15.4); Lymphocytes # 2.4 K/mcL (0.6-4.6); Lymphocytes % 29.7 %; Mean Corpuscular HGB Conc 29.4 g/dL (31.6-35.5); Mean Corpuscular Hemoglobin 24.4 pg (28.0-33.3); Mean Corpuscular Volume 83.1 fL (83.0-100.0); Mean Platelet Volume 9.1 fL (9.4-12.4); Monocytes # 0.7 K/mcL (0.0-1.3); Neutrophils # 4.6 K/mcL (1.6-8.9); Platelet Count 482 K/mcL (140-400); Red Blood Count 3.56 M/mcL (3.82-4.97); Red Cell Distribution Width 17.7 % (11.5-14.5); Segmented Neutrophils % 56.7 %
[2017-10-14 06:37] LABS: Calcium 8.8 mg/dL (8.6-10.8); Magnesium 1.6 mg/dL (1.6-2.6); Phosphorous 4.6 mg/dL (2.3-4.7); Potassium 3.8 mEq/L (3.5-4.5)
[2017-10-14] MEDS: Gabapentin 300 MG CAPSULE PO SCH ×3 (09:56→22:43)
[2017-10-14] MEDS: Aspirin Enteric Coated 81 MG Tablet PO SCH (09:58)
[2017-10-14] MEDS: Furosemide 20 MG TABLET PO SCH (09:59)
--- NOTE | 2017-10-14 10:37 | Internal Med Progress Note ---
Date of Encounter: 10/14/17 Time of Encounter: 10:35 - Assessment and plan (1) Acute kidney injury Current Visit: Yes Status: Acute Assessment and plan: Likely secondary diuretic therapy will hold Lasix today given small IV fluid challenge closely monitor for signs of volume overload will closely monitor renal function (2) Elevated troponin Current Visit: Yes Status: Acute Assessment and plan: Given CHF decompensation, elevated TNI can be secondary to demand ischemia Cardiology on board no acute surgical intervention, medical optimization continue BB, ASA, Statin, Plavix (3) CHF exacerbation Current Visit: Yes Status: Acute Assessment and plan: Echo reported LVEF of 30% with severe global hypokinesis, mild LV diastolic dysfunction cardiology on board and consultation appreciated Holding lasix today due to IRAIS will continue to monitor strict I/Os, fluid restriction diet, daily weights Qualifiers: Congestive heart failure type: unspecified congestive heart failure type Qualified Code(s): I50.9 - Heart failure, unspecified (4) Pneumonia Current Visit: Yes Status: Acute Assessment and plan: Leukocytosis resolved will continue empiric IV abx (Levaquin for a total of 7 days) will f/u blood culture report Qualifiers: Pneumonia type: due to unspecified organism Laterality: bilateral Lung location: lower lobe of lung Qualified Code(s): J18.9 - Pneumonia, unspecified organism (5) Hypokalemia Current Visit: Yes Status: Resolved (6) Anemia Current Visit: Yes Status: Chronic Assessment and plan: H&H low but acceptable no acute bleeding reported at this time will continue to monitor iron studies consistent with iron def anemia, continue iron supplementation Qualifiers: Anemia type: iron deficiency Iron deficiency anemia type: unspecified iron deficiency Qualified Code(s): D50.9 - Iron deficiency anemia, unspecified (7) DVT prophylaxis Current Visit: Yes Status: Acute Assessment and plan: Heparin SQ - Subjective Interval history: Patient seen and examined at bedside. Sitting in bed and AAO x 3. Pt noted to have worsening renal function and appears to be clinically dry. Will administer 500cc NS x 1 bag holding lasix at this time Pt refusing rehab placement as she states she is scheduled for ortho surgery in october and her insurance only allows her certain number of days for rehab Will hold d/c at this time given renal function if renal function improves, likely d/c in am. - Constitutional Vitals: Temp Pulse Resp BP Pulse Ox 97.9 F 104 16 101/56 92 10/14/17 08:35 10/14/17 08:35 10/14/17 08:35 10/14/17 08:35 10/14/17 08:35 General appearance: Present: A&O X 3, no acute distress, answers questions appropriately - Head Head exam: Present: atraumatic, normocephalic - Eye Eye exam: Present: conjuntiva pink, sclera anicteric - Respiratory Respiratory exam: Present: CTAB. Absent: accessory muscle use, rales, rhonchi, wheezes - Cardiovascular Cardiovascular exam: Present: RRR, +S1, +S2. Absent: diastolic murmur, gallop, rubs, systolic murmur - GI/Abdominal GI/Abdominal exam: Present: normal bowel sounds, soft, no peritoneal signs. Absent: distended, tenderness - Extremities Exam Extremities exam: Present: warm, radial pulses palpable and symmetrical. Absent : calf tenderness, pedal edema - Neurological Exam Neurological exam: Present: alert, oriented X3 Internal Medicine: Result - Labs CBC & Chem 7: 10/14/17 05:39 10/14/17 05:39 Labs: Short CBC 10/14/17 Range/Units 05:39 WBC 8.1 (4.3-11.1) K/mcL Hgb 8.7 L (11.5-15.4) g/dL Hct 29.6 L (35.3-44.9) % Plt Count 482 H (140-400) K/mcL Neutrophils # 4.6 (1.6-8.9) K/mcL BMP 10/14/17 05:39 Sodium 137 Potassium 3.8 Chloride 99 Carbon Dioxide 29 BUN 28 H Creatinine 1.62 H Glucose 78 Calcium 8.8 - ABG Interpretation ABG results: PT/INR, D-dimer PT 13.4 Seconds (9.4-12.1) H 10/11/17 05:33 - Impressions Impressions Hip CT 10/13/17 15:06 IMPRESSION: 1. No acute osseous abnormality identified. 2. Re- demonstration of postsurgical changes of the left femur with intramedullary tl in place. Lucency surrounds the proximal femoral neck screw compatible with hardware loosening. The fracture line between the femoral neck and greater trochanter remains visible as on prior exam. There is no evidence for osseous bridging of the femoral neck with the femur. Findings are unchanged compared with previous exam. 3. Moderate left hip and severe right hip osteoarthritis. 4. Severe tricompartmental osteoarthritis of the knees. 5. Small bilateral knee effusions. 6. Osteopenia . D/ / Jonathon Velazquez MD / Jonathon Velazquez MD Interpreting Provider: Jonathon Velazquez MD - VTE Documentation of Mechanical Device: Intermittent pneumatic compression device Consult Discharge Plan - Plan Referrals: Jessica Vasquez, NICOLETTE [Primary Care Provider] - 10/19/17 4:00 pm
[2017-10-14] MEDS ORDERED: 0.9 % Sodium Chloride 500 ML IVC SCH (10:45)
[2017-10-14] MEDS ORDERED: 0.9 % Sodium Chloride 250 ML IVC ONE (15:05)
[2017-10-15] MEDS: ALPRAZolam 0.5 MG TABLET PO PRN (00:38)
[2017-10-15] MEDS: *HR* OxyCODONE/APAP 10/325 TABLET PO PRN ×2 (04:09→13:25)
[2017-10-15 05:22] LABS: Basophils # 0.1 K/mcL (0.0-0.2); Basophils % 0.6 %; Eosinophils # 0.4 K/mcL (0.0-0.6); Hematocrit 26.4 % (35.3-44.9); Hemoglobin 7.8 g/dL (11.5-15.4); Lymphocytes # 2.3 K/mcL (0.6-4.6); Lymphocytes % 25.9 %; Mean Corpuscular HGB Conc 29.5 g/dL (31.6-35.5); Mean Corpuscular Hemoglobin 24.6 pg (28.0-33.3); Mean Corpuscular Volume 83.3 fL (83.0-100.0); Mean Platelet Volume 9.2 fL (9.4-12.4); Monocytes # 0.7 K/mcL (0.0-1.3); Monocytes % 7.8 %; Neutrophils # 5.4 K/mcL (1.6-8.9); Platelet Count 422 K/mcL (140-400); Red Blood Count 3.17 M/mcL (3.82-4.97); Red Cell Distribution Width 17.9 % (11.5-14.5); Segmented Neutrophils % 59.7 %
[2017-10-15 05:37] LABS: BUN/Creatinine Ratio 23 (6-26); Blood Urea Nitrogen 22 mg/dL (7-20); Calcium 8.6 mg/dL (8.6-10.8); Carbon Dioxide 31 mEq/L (19-29); Chloride 103 mEq/L (98-109); Glucose 130 mg/dL (70-99); Magnesium 1.6 mg/dL (1.6-2.6); Osmolality,Calculated 289 (280-300); Phosphorous 2.6 mg/dL (2.3-4.7); Potassium 4.4 mEq/L (3.5-4.5); Sodium 137 mEq/L (136-145); eGFR For African Americans > 60 (> 60); eGFR For Non-African Americans 60 (> 60)
[2017-10-15] MEDS: *HR* Heparin 5,000 UNIT/ML VIAL SQ SCH (07:04)
[2017-10-15] MEDS: Insulin LISPRO 300 UNITS/3 ML VIAL SQ SCH (08:25)
[2017-10-15 08:57] LABS: Hematocrit 27.3 % (35.3-44.9); Hemoglobin 8.2 g/dL (11.5-15.4)
[2017-10-15] MEDS: Aspirin Enteric Coated 81 MG Tablet PO SCH (08:58)
[2017-10-15] MEDS: Gabapentin 300 MG CAPSULE PO SCH (08:58)
[2017-10-15] MEDS ORDERED: Levofloxacin 750 MG/150 ML 750 MG/150 ML BAG IVPB SCH (09:00)
--- NOTE | 2017-10-15 10:30 | Discharge Summary ---
Date of Encounter: 10/15/17 Time of Encounter: 10:30 - Discharge Diagnosis (1) Acute kidney injury Priority: Secondary Status: Acute (2) Elevated troponin Priority: Primary Status: Acute (3) CHF exacerbation Priority: Primary Status: Acute Qualifiers: Congestive heart failure type: unspecified congestive heart failure type Qualified Code(s): I50.9 - Heart failure, unspecified (4) Pneumonia Priority: Primary Status: Acute Qualifiers: Pneumonia type: due to unspecified organism Laterality: bilateral Lung location: lower lobe of lung Qualified Code(s): J18.9 - Pneumonia, unspecified organism (5) Hypokalemia Priority: Secondary Status: Resolved (6) Anemia Priority: Secondary Status: Chronic Qualifiers: Anemia type: iron deficiency Iron deficiency anemia type: unspecified iron deficiency Qualified Code(s): D50.9 - Iron deficiency anemia, unspecified (7) DVT prophylaxis Priority: Secondary Status: Acute - Discharge Medications Prescriptions: Carvedilol [Coreg] 25 mg PO BID #60 tablet Ferrous Sulfate 325 mg PO DAILY #30 tablet Furosemide [Lasix] 20 mg PO DAILY #30 tablet Levofloxacin [Levaquin] 750 mg PO DAILY #4 tablet Sennosides/Docusate Sodium [Senna Plus] 2 each PO BID PRN #20 tablet PRN Reason: Constipation Home Medications: Clopidogrel [Plavix] 75 mg PO DAILY 12/07/15 [History] Gabapentin [Neurontin] 600 mg PO TID 12/07/15 [History] Insulin Glargine [Lantus] 40 unit SQ HS 12/07/15 [History] Paroxetine HCl [Paroxetine] 40 mg PO DAILY 12/07/15 [History] HYDROcodone/Acet 10/325 mg [[place] 10-325 mg] 1 tab PO Q4H PRN #28 tablet [Rx] ALPRAZolam [Xanax 0.5 MG Tablet] 0.5 mg PO TID 05/31/17 [History] Aspirin [Lo-Dose Aspirin EC] 81 mg PO DAILY 06/22/17 [History] Atorvastatin [Lipitor] 40 mg PO HS 06/22/17 [History] Lisinopril [Zestril] 2.5 mg PO DAILY 06/22/17 [History] Meloxicam 15 mg PO DAILY 06/22/17 [History] Promethazine [Phenergan] 12.5 mg PO Q8HR 06/22/17 [History] Omeprazole [PriLOSEC] 40 mg PO DAILY 10/10/17 [History] OxyCODONE/APAP 10/325 [Percocet 10/325 MG] 1 each PO Q6HR PRN 10/10/17 [History] Carvedilol [Coreg] 25 mg PO BID #60 tablet 10/15/17 [Rx] Ferrous Sulfate 325 mg PO DAILY #30 tablet 10/15/17 [Rx] Furosemide [Lasix] 20 mg PO DAILY #30 tablet 10/15/17 [Rx] Levofloxacin [Levaquin] 750 mg PO DAILY #4 tablet 10/15/17 [Rx] Sennosides/Docusate Sodium [Senna Plus] 2 each PO BID PRN #20 tablet 10/15/17 [ Rx] Allergies/Adverse Reactions: 3 Allergy/AdvReac Type Severity Reaction Status Date / Time Penicillins [PCN] Allergy Hives Verified 10/11/17 21:39 NSAIDS (Non-Steroidal AdvReac Palpitation Verified 10/11/17 21:39 Anti-Inflamma s Procedures/tests Complete & Pending: Procedures Performed prior 72 hours Category Date Time Status CT NANDO hip lt wo con [CT] Routine Exams 10/13/17 15:06 Completed Date of admission: 10/11/17 03:01 Primary care physician: Jessica Vasquez CNP Consults: 10/11/17 03:01 Consult to Occupational Therapy [CONS] Routine Comment: Evaluate, develop and implement POC Reason for Consult: wekaness Consult to Physical Therapy [CONS] Routine Comment: Evaluate, develop and implement POC Reason for Consult: weakness 10/11/17 03:07 Consult to Cardiology [CONS] Routine Comment: Consulting Provider: Cardiology [facility] Reason for Consult: elevated troponin Call Completed: No 10/11/17 09:51 Consult to Invasive Line Access Team [CONS] Routine Reason for Consult: Limited access Line Type: EPIV 10/12/17 10:53 Consult to Award Clerk [CONS] Routine Reason for SW Consult: d/c planning Discharging clinician: Aida Elizalde Anticipated date of discharge: 10/15/17 - Patient Status Disposition: Home Health Service Condition: Good Functional capacity at discharge: uses cane/walker Overall status at discharge: patient is back to baseline - Discharge Instructions Follow Up With: Jessica Vasquez, NICOLETTE [Primary Care Provider] - 10/19/17 4:00 pm Additional Instructions: Please follow up with your primary care physician within five days after your discharge from the hospital. Please follow up with cardiology within one to two weeks after your discharge from the hospital. Your home medications have been changed as follows: 1. Carvedilol has been increased to 25mg twice a day 2. Ferrous sulfate 325mg once a day has been added due to your iron deficiency anemia 3. Lasix has been decreased to 20mg once a day 4. Your home dose of Potassium chloride has been discontinued Ferrous sulfate may cause constipation and can give you black stools. Please seek medical help, if you note any acute bright red blood in your stools. Resume all other medications as prescribed by your primary care physician Continue oral antibiotics for four more days as prescribed. - Diet and Activity Activity: as per physical therapy Diet: diabetic diet, low fat, low cholesterol, low salt diet Hospital course: Ms. Rollisn is a 62 year old female with PMH Of CHF, CAD, DM, HTN, HLD, s/p hip fx(scheduled for surgery in Oct) admitted for acute respiratory distress secondary to PNA and CHF exacerbation. she was noted to have elevated TNI due to which cardiology was consulted. Pt's repeat echo showed EF of 30% with severe global hypokinesis. medical optimization was recommended at this time. Her home dose of lasix was adjusted. She continue abx for pna. She was noted to be on narcotic medications at home for her hip pain and continued to have mental status changes after taking her home narcotic medications. Extensive counseling was provided in regards to the risks associated with opiates. Pt was seen by physical therapy and ECF was recommended. Pt refused ECF at this time and requested arrangement of home health services. She was also found to have iron deficiency anemia during this hospitalization and was started on iron supplementation. At this time, patient is hemodynamically stable and will be discharged to home with follow up with PCP and cardiology. - Time Spent with Patient Total time spent providing and/or coordinating discharge services: Greater than 30 minutes - Constitutional Vitals: Temp Pulse Resp BP Pulse Ox 99.4 F 77 16 131/72 92 10/15/17 07:44 10/15/17 07:44 10/15/17 07:44 10/15/17 07:44 10/15/17 07:44 General appearance: Present: A&O X 3, no acute distress, obese, answers questions appropriately - Head Head exam: Present: atraumatic, normocephalic - Eye Eye exam: Present: conjuntiva pink, sclera anicteric - Respiratory Respiratory exam: Present: CTAB. Absent: accessory muscle use, rales, rhonchi, wheezes - Cardiovascular Cardiovascular exam: Present: RRR, +S1, +S2. Absent: diastolic murmur, gallop, rubs, systolic murmur - GI/Abdominal GI/Abdominal exam: Present: normal bowel sounds, soft, no peritoneal signs. Absent: distended, tenderness - Extremities Exam Extremities exam: Present: warm, radial pulses palpable and symmetrical. Absent : calf tenderness - Neurological Exam Neurological exam: Present: alert, oriented X3 - Psychiatric Psychiatric exam: Present: normal affect, normal mood - VTE Documentation of Mechanical Device: Intermittent pneumatic compression device
[2017-10-15 10:54] VITALS: BP 136/81
--- NOTE | 2017-10-15 11:05 | Physician Discharge Referral ---
Home Health/Hosp Referral Info Transfer to: Home Health Provider in Charge Post Discharge: PCP - Diagnosis (1) Acute kidney injury Priority: Secondary Status: Resolved (2) Elevated troponin Priority: Primary Status: Acute (3) CHF exacerbation Priority: Primary Status: Acute (4) Pneumonia Priority: Primary Status: Acute (5) Hypokalemia Priority: Secondary Status: Resolved (6) Anemia Priority: Secondary Status: Chronic (7) DVT prophylaxis Priority: Secondary Status: Acute - Respiratory Orders Smoking Cessation: Smoking cessation has been advised. For more information, call the [place] Tobacco Quit Line at 2-096-XYVT-NOW. - Services Needed Following services are medically necessary services: Nursing, Home Health Aide, Physical Therapy, Occupational Therapy - Transfer Medications Prescriptions: Carvedilol [Coreg] 25 mg PO BID #60 tablet Ferrous Sulfate 325 mg PO DAILY #30 tablet Furosemide [Lasix] 20 mg PO DAILY #30 tablet Levofloxacin [Levaquin] 750 mg PO DAILY #4 tablet Sennosides/Docusate Sodium [Senna Plus] 2 each PO BID PRN #20 tablet PRN Reason: Constipation Home Medications: Clopidogrel [Plavix] 75 mg PO DAILY 12/07/15 [History] Gabapentin [Neurontin] 600 mg PO TID 12/07/15 [History] Insulin Glargine [Lantus] 40 unit SQ HS 12/07/15 [History] Paroxetine HCl [Paroxetine] 40 mg PO DAILY 12/07/15 [History] HYDROcodone/Acet 10/325 mg [[place] 10-325 mg] 1 tab PO Q4H PRN #28 tablet [Rx] ALPRAZolam [Xanax 0.5 MG Tablet] 0.5 mg PO TID 05/31/17 [History] Aspirin [Lo-Dose Aspirin EC] 81 mg PO DAILY 06/22/17 [History] Atorvastatin [Lipitor] 40 mg PO HS 06/22/17 [History] Lisinopril [Zestril] 2.5 mg PO DAILY 06/22/17 [History] Meloxicam 15 mg PO DAILY 06/22/17 [History] Promethazine [Phenergan] 12.5 mg PO Q8HR 06/22/17 [History] Omeprazole [PriLOSEC] 40 mg PO DAILY 10/10/17 [History] OxyCODONE/APAP 10/325 [Percocet 10/325 MG] 1 each PO Q6HR PRN 10/10/17 [History] Carvedilol [Coreg] 25 mg PO BID #60 tablet 10/15/17 [Rx] Ferrous Sulfate 325 mg PO DAILY #30 tablet 10/15/17 [Rx] Furosemide [Lasix] 20 mg PO DAILY #30 tablet 10/15/17 [Rx] Levofloxacin [Levaquin] 750 mg PO DAILY #4 tablet 10/15/17 [Rx] Sennosides/Docusate Sodium [Senna Plus] 2 each PO BID PRN #20 tablet 10/15/17 [ Rx] Allergies/Adverse Reactions: 3 Allergy/AdvReac Type Severity Reaction Status Date / Time Penicillins [PCN] Allergy Hives Verified 10/11/17 21:39 NSAIDS (Non-Steroidal AdvReac Palpitation Verified 10/11/17 21:39 Anti-Inflamma s Certification: Further, I certify that my clinical findings support that this patient is homebound (i.e. absences from home require considerable and taxing effort and are for medical reasons or jain services or infrequently or short duration when for other reasons) because: Homebound Reason: Patient requires assistance of a person or device to safely leave home Attestation: My signature below is to certify that this patient is under my care and that I, or nurse practitioner, or a physician's molding line assistant working with me, has a face-to -face encounter with this patient.
[2017-10-15] MEDS ORDERED: FLUARIX QUAD 2017-18 36MOS UP/PF 0.5 ML SYRINGE IM ONE (15:26)
== END 2017-10-15 16:06 | disposition home health service (06) | DRG 291 ==
LOC: 3NENU → SUATTDRO 10-11 03:01
PROVIDERS: ADMIT Hospitalist; ATTEND Internal Medicine

== ENCOUNTER 2017-11-25 22:12 | Inpatient (IN) ==
[2017-11-26] MEDS ORDERED: Naloxone 0.4 MG/ML INJ IVP PRN (00:39)
[2017-11-26] MEDS ORDERED: Ondansetron ODT 4 MG TAB.RAPDIS SL PRN (00:39)
--- NOTE | 2017-11-26 01:00 | Internal Med History&Physical ---
<Inder Moe - Last Filed: 11/26/17 01:27> Date of Encounter: 11/26/17 Time of Encounter: 00:45 Assessment and Plan (1) Altered mental status Current visit: No Status: Acute Patient altered, likely secondary to benzodiazepine and opioid overdose. Vital signs are stable. Patient obtunded, poor historian, clinically not exhibiting signs of agitation or self harm. Recent history of T12 compression fracture, osteoarthritis, chronic hip fracture , per chart review likely current reason for opioid usage. No PRN pain management at this time due to need for establishing patient history/ motivation. Consider pain management with methadone/MS/contin after reassessing mental status in 12 hours. Will provide cardiac telemetry, fall precautions, pulse ox at this time, to be reassessed during the day. Qualifiers: Altered mental status type: unspecified Qualified Code(s): R41.82 - Altered mental status, unspecified (2) Benzodiazepine overdose Current visit: No Status: Acute Benzodiazepine overdose of undetermined intent, suspect accidental. Vital signs stable, family currently not present, pt currently A&Ox1, answers questions inconsistently. Will hold benzo and opioid medication at this time. In setting of overdose, continue monitoring via telemetry, fall precautions, pulse ox, AM labs. Currently not complaining of pain, nor is agitated. Will still recommend holding orders for benzo/opioid medication for next 12 hours and access baseline mental status. Qualifiers: Encounter type: initial encounter Injury intent: undetermined intent Qualified Code(s): T42.4X4A - Poisoning by benzodiazepines, undetermined, initial encounter (3) CAD (coronary artery disease) Current visit: Yes Status: Acute CT head negative for bleed. Continue Plavix, ASA. Qualifiers: Coronary Disease-Associated Artery/Lesion type: [place] artery [place] vs. transplanted heart: [place] heart Associated angina: without angina Qualified Code(s): I25.10 - Atherosclerotic heart disease of [place] coronary artery without angina pectoris (4) Type 2 diabetes mellitus Current visit: Yes Status: Acute Takes Lantus, will start patient on ACHS/SSI Qualifiers: Diabetes mellitus complication status: without complication Diabetes mellitus joint terminal attack controller insulin use: unspecified shelter insulin use status Qualified Code(s): E11.9 - Type 2 diabetes mellitus without complications (5) Hypertension Current visit: Yes Status: Acute Continue home meds. Qualifiers: Hypertension type: essential hypertension Qualified Code(s): I10 - Essential (primary) hypertension Internal Medicine - H&P: HPI Admitted From: Hospital to Hospital Transfer Plans for Post Hospital Care: Transfer Inp Rehab Fac History of present illness: Ms. Rollins is a 62 year old female, limited historian, PMH ORIF left femur, T12 compression fracture, osteopenia on Percocet, anxiety on Xanax, presents as a hospital transfer from [place] ED for altered mental status. Patient initially brought in by family for AMS, per chart, they state she took approx 11.5 pills of .5mg Xanax, unknown amount of Percocet. Was recently prescribed 120 10mg Percocet and 90 0.5mg Xanax. Patient VSS consistently stable from initiate presentation to [facility] transfer. Patient is lying in bed, non-agitated, alert, however, answers questions inappropriately. Past Med Surg Social Fam HX - Past Medical History Medical history: arthritis, cancer, CHF, COPD, DVT, diabetes, hyperlipidemia, hypertension, myocardial infarction Psychiatric history: anxiety, depression - Past Surgical History Surgical History: hip replacement - Social History Smoking Status: Current every day smoker Smokeless Tobacco Status: No Alcohol use: none Drug use: none Internal Medicine - H&P: Meds Clopidogrel [Plavix] 75 mg PO DAILY 12/07/15 [History] Insulin Glargine [Lantus] 40 unit SQ HS 12/07/15 [History] ALPRAZolam [Xanax 0.5 MG Tablet] 0.5 mg PO TID 05/31/17 [History] Aspirin [Lo-Dose Aspirin EC] 81 mg PO DAILY 06/22/17 [History] Atorvastatin [Lipitor] 40 mg PO HS 06/22/17 [History] Lisinopril [Zestril] 2.5 mg PO DAILY 06/22/17 [History] Omeprazole [PriLOSEC] 40 mg PO DAILY 10/10/17 [History] OxyCODONE/APAP 10/325 [Percocet 10/325 MG] 1 each PO Q6HR PRN 10/10/17 [History] Carvedilol [Coreg] 25 mg PO BID #60 tablet 10/15/17 [Rx] Ferrous Sulfate 325 mg PO DAILY #30 tablet 10/15/17 [Rx] Furosemide [Lasix] 20 mg PO DAILY #30 tablet 10/15/17 [Rx] Sennosides/Docusate Sodium [Senna Plus] 2 each PO BID PRN #20 tablet 10/15/17 [ Rx] Metoprolol [Lopressor] 50 mg PO BID 11/25/17 [History] 3 Allergy/AdvReac Type Severity Reaction Status Date / Time Penicillins [PCN] Allergy Hives Verified 11/25/17 20:57 NSAIDS (Non-Steroidal AdvReac Palpitation Verified 11/25/17 20:57 Anti-Inflamma s All Systems PM: A 10-system review of systems was performed and is negative for pertinent findings except as documented above in the HPI. - Constitutional Vitals: Pulse Resp BP Pulse Ox 119 16 159/94 98 11/25/17 23:53 11/25/17 23:53 11/25/17 23:53 11/25/17 23:53 General appearance: Present: A&O X 1, no acute distress. Absent: answers questions appropriately - Head Head exam: Present: atraumatic - Eye Eye exam: Absent: nystagmus - Respiratory Respiratory exam: Absent: prolonged expiratory phase, respiratory distress - Cardiovascular Cardiovascular exam: Present: +S1, +S2, tachycardia - Extremities Exam Extremities exam: Present: warm. Absent: calf tenderness - Neurological Exam Neurological exam: Present: no focal deficits Additional comments: GCS 15 - Psychiatric Psychiatric exam: Absent: homicidal ideation, suicidal ideation <John Stoner - Last Filed: 11/26/17 01:48> Date of Encounter: 11/26/17 Internal Medicine - H&P: HPI History of present illness: Ms. Rollins is a 62 year old female All Systems PM: A 10-system review of systems was performed and is negative for pertinent findings except as documented above in the HPI. - Constitutional Vitals: Pulse Resp BP Pulse Ox 119 16 159/94 98 11/25/17 23:53 11/25/17 23:53 11/25/17 23:53 11/25/17 23:53 - Attending Attestation I examined this patient and my medical decision-making was reviewed with the Resident Physician. I agree with the documented findings, disposition and treatment plan as described except to the extent set forth below. 62 yo patient with chronic back pain on percocet 10mg and xanax 0.5mg who presents with confusion , possible related to overdosing on prescription medications. She appears confused but w/o indication of suicidal attempt. Apparently lives with brother and was brought into the ED for possible placement. Family having trouble with care per ED report. On arrival to [facility], family was not present to discuss case She is able to tell me her current location but has no idea why she is here. She did not wished to be bothered and only wish to go to sleep. There has been some concerns that she has taken one too many pills. Reported 1.5 tab of percocet 10mg QID. She also had just refilled 90 tabs of xanax 6 days ago but pill count noted 20 left. Unclear where it went but has possibly taken them. ROS 14 point review of systems reviewed as best as possible given presentation. Pertinent positive or negative as per HPI or otherwise reviewed as negative General - Alert to place and person but otherwise confused Psych - NO agitation, Does not wish to be disturbed Eyes - CYRUS. Eye lids intact. No scleral icterus Neuro - Unable to complete due to lack of coopereation Heart - Sinus. RRR. S1 and S2 present. No added HS/murmurs appreciated. No elevated JVD appreciated. Lung - Adequate air entry b/l, No crackles/wheezes appreciated GI - Soft, non-tender. No hepatosplenomegaly/ascites. BS+ - No CVA/suprapubic tenderness or palpable bladder distension A/P Chronic pain Medication mis-management/overdose (non suicidal , mis-endeavor) Encephalopathy likely 2/2 to medications - hold opiate and xanax - check CXR - CT head, UA negative for infection/acute issues - social work consult to evaluate for placement - when mental state better, likely need adjustment in meds e.g klonopin instead of xanax ?, MS contin or low dose methadone for chronic back pain ? Further management pending hospital course HTN CAD DMII
[2017-11-26] MEDS ORDERED: D5% in Water 1,000 ML IVC PRN (01:08)
[2017-11-26] MEDS ORDERED: *HR* Dextrose 50 % in Water (Syg) 50 ML SYRINGE IVP PRN (01:08)
[2017-11-26] MEDS ORDERED: Dextrose Gel 15 GM/37.5 ML TUBE PO PRN ×2 (01:08)
[2017-11-26] MEDS: Aspirin Enteric Coated 81 MG Tablet PO SCH ×2 (02:11→09:10)
[2017-11-26] MEDS: Insulin LISPRO 300 UNITS/3 ML VIAL SQ SCH ×5 (02:11→21:01)
[2017-11-26 07:00] LABS: Basophils # 0.1 K/mcL (0.0-0.2); Basophils % 0.6 %; Eosinophils # 0.1 K/mcL (0.0-0.6); Eosinophils % 0.9 %; Hematocrit 32.6 % (35.3-44.9); Immature Granulocytes % 0.9 % (0-4); Lymphocytes # 1.8 K/mcL (0.6-4.6); Lymphocytes % 22.2 %; Mean Corpuscular HGB Conc 30.7 g/dL (31.6-35.5); Mean Corpuscular Hemoglobin 24.3 pg (28.0-33.3); Mean Corpuscular Volume 79.1 fL (83.0-100.0); Monocytes # 0.6 K/mcL (0.0-1.3); Neutrophils # 5.5 K/mcL (1.6-8.9); Platelet Count 569 K/mcL (140-400); Red Blood Count 4.12 M/mcL (3.82-4.97); Red Cell Distribution Width 17.2 % (11.5-14.5); Segmented Neutrophils % 68.4 %
[2017-11-26 07:15] LABS: BUN/Creatinine Ratio 12 (6-26); Blood Urea Nitrogen 7 mg/dL (8-23); Calcium 9.8 mg/dL (8.6-10.3); Carbon Dioxide 26 mEq/L (23-29); Chloride 101 mEq/L (98-107); Glucose 170 mg/dL (70-105); Osmolality,Calculated 288 (280-300); Potassium 3.6 mEq/L (3.5-5.1); Sodium 138 mEq/L (136-145); eGFR For African Americans > 60 (> 60); eGFR For Non-African Americans > 60 (> 60)
[2017-11-26 07:32] LABS: Thyroid Stimulating Hormone 0.347 mcIU/mL (0.340-5.600)
[2017-11-26] MEDS: D5% in 0.45% NACL w KCl 20 MEQ/1,000 ML MLS IVC SCH ×2 (12:11→21:01)
[2017-11-27] MEDS: D5% in 0.45% NACL w KCl 20 MEQ/1,000 ML MLS IVC SCH ×3 (02:03→22:51)
[2017-11-27 06:54] LABS: Basophils # 0.1 K/mcL (0.0-0.2); Basophils % 0.5 %; Eosinophils % 0.2 %; Hemoglobin 10.4 g/dL (11.5-15.4); Immature Granulocytes % 0.5 % (0-4); Lymphocytes # 1.5 K/mcL (0.6-4.6); Lymphocytes % 13.7 %; Mean Corpuscular HGB Conc 29.7 g/dL (31.6-35.5); Mean Corpuscular Hemoglobin 23.6 pg (28.0-33.3); Mean Corpuscular Volume 79.4 fL (83.0-100.0); Mean Platelet Volume 9.2 fL (9.4-12.4); Monocytes # 0.7 K/mcL (0.0-1.3); Monocytes % 6.7 %; Neutrophils # 8.6 K/mcL (1.6-8.9); Platelet Count 639 K/mcL (140-400); Red Blood Count 4.41 M/mcL (3.82-4.97); Red Cell Distribution Width 17.5 % (11.5-14.5); Segmented Neutrophils % 78.4 %
[2017-11-27 07:06] LABS: BUN/Creatinine Ratio 16 (6-26); Blood Urea Nitrogen 12 mg/dL (8-23); Calcium 9.5 mg/dL (8.6-10.3); Carbon Dioxide 21 mEq/L (23-29); Chloride 104 mEq/L (98-107); Glucose 203 mg/dL (70-105); Osmolality,Calculated 300 (280-300); Potassium 3.7 mEq/L (3.5-5.1); Sodium 142 mEq/L (136-145); eGFR For African Americans > 60 (> 60); eGFR For Non-African Americans > 60 (> 60)
[2017-11-27] MEDS: Aspirin Enteric Coated 81 MG Tablet PO SCH (08:29)
[2017-11-27] MEDS: Insulin LISPRO 300 UNITS/3 ML VIAL SQ SCH ×4 (08:34→22:20)
--- NOTE | 2017-11-27 19:03 | Internal Med Progress Note ---
Date of Encounter: 11/27/17 Time of Encounter: 11:40 - Assessment and plan (1) Altered mental status Current Visit: Yes Status: Acute Assessment and plan: Acute encephalopathy likely secondary to benzodiazepine and opioid overdose - unclear if this was intentional or accidental Symptoms slowly improving Cardiac telemetry, monitor closely Qualifiers: Altered mental status type: unspecified Qualified Code(s): R41.82 - Altered mental status, unspecified (2) Benzodiazepine overdose Current Visit: Yes Status: Acute Assessment and plan: Benzodiazepine overdose - unclear if this was accidental or intentional Symptoms now improving, monitor closely Qualifiers: Encounter type: initial encounter Injury intent: undetermined intent Qualified Code(s): T42.4X4A - Poisoning by benzodiazepines, undetermined, initial encounter (3) CAD (coronary artery disease) Current Visit: Yes Status: Chronic Assessment and plan: Stable, no anginal symptoms at this time Continue Aspirin, Plavix, Lipitor Qualifiers: Coronary Disease-Associated Artery/Lesion type: [place] artery [place] vs. transplanted heart: [place] heart Associated angina: without angina Qualified Code(s): I25.10 - Atherosclerotic heart disease of [place] coronary artery without angina pectoris (4) Type 2 diabetes mellitus Current Visit: Yes Status: Chronic Assessment and plan: Type 2 diabetes mellitus, insulin-dependent, hyperglycemia Tinea insulin sliding scale, glucose checks Qualifiers: Diabetes mellitus complication status: without complication Diabetes mellitus buttermaker insulin use: unspecified alf insulin use status Qualified Code(s): E11.9 - Type 2 diabetes mellitus without complications (5) Hypertension Current Visit: Yes Status: Chronic Assessment and plan: Essential hypertension, controlled, monitor Continue Coreg, Zestril Qualifiers: Hypertension type: essential hypertension Qualified Code(s): I10 - Essential (primary) hypertension (6) DVT prophylaxis Current Visit: Yes Status: Acute Assessment and plan: Heparin subcutaneous - Time Spent With Patient 25 - 35 minutes - Subjective Interval history: Examined this morning. Patient is awake and alert. Not in any distress. Denies chest pain or shortness of breath. No fever. Hemodynamically stable. States she feels better. Complains of mild throat pain. No other acute events or complaints. Admitted for altered mental status likely due to benzodiazepine overdose. Currently seems to be back to baseline. - Constitutional Vitals: Temp Pulse Resp BP Pulse Ox 98.1 F 97 23 130/83 90 11/27/17 15:42 11/27/17 15:42 11/27/17 15:42 11/27/17 15:42 11/27/17 15:42 General appearance: Present: cooperative, A&O X 2, pleasant, no acute distress, answers questions appropriately - Head Head exam: Present: atraumatic - Eye Eye exam: Present: EOMI - ENT ENT exam: Present: mucous membranes moist - Respiratory Respiratory exam: Absent: accessory muscle use, chest wall tenderness, rales, respiratory distress, rhonchi, wheezes, tachypnea - Cardiovascular Cardiovascular exam: Present: RRR, +S1, +S2 - GI/Abdominal GI/Abdominal exam: Present: soft. Absent: distended, firm, guarding, tenderness - Extremities Exam Extremities exam: Present: radial pulses palpable and symmetrical. Absent: calf tenderness, cyanotic, pedal edema - Neurological Exam Neurological exam: Present: alert, no focal deficits. Absent: facial droop, speech deficit Additional comments: Able to verbalize, follows commands. No obvious focal neurological deficits. Internal Medicine: Result - Labs CBC & Chem 7: 11/27/17 06:13 11/27/17 06:13 Labs: Short CBC 11/27/17 Range/Units 06:13 WBC 11.0 (4.3-11.1) K/mcL Hgb 10.4 L (11.5-15.4) g/dL Hct 35.0 L (35.3-44.9) % Plt Count 639 H (140-400) K/mcL Neutrophils # 8.6 (1.6-8.9) K/mcL BMP 11/27/17 06:13 Sodium 142 Potassium 3.7 Chloride 104 Carbon Dioxide 21 L BUN 12 Creatinine 0.76 Glucose 203 H Calcium 9.5 Consult Discharge Plan - Plan Referrals: NONE,PCP [Primary Care Provider] -
[2017-11-28] MEDS: Nicotine 14 MG PATCH.TD24 TD SCH (03:47)
[2017-11-28] MEDS: *HR* OxyCODONE/APAP 5/325 TABLET PO PRN ×3 (04:43→20:57)
[2017-11-28] MEDS: *HR* Heparin 5,000 UNIT/ML VIAL SQ SCH ×2 (06:18→16:40)
[2017-11-28] MEDS: D5% in 0.45% NACL w KCl 20 MEQ/1,000 ML MLS IVC SCH ×3 (06:46→20:19)
[2017-11-28] MEDS: Aspirin Enteric Coated 81 MG Tablet PO SCH (08:11)
[2017-11-28] MEDS: ALPRAZolam 0.5 MG TABLET PO PRN ×2 (08:13→20:03)
[2017-11-28] MEDS: Insulin LISPRO 300 UNITS/3 ML VIAL SQ SCH ×4 (08:15→20:03)
--- NOTE | 2017-11-28 17:28 | Internal Med Progress Note ---
Date of Encounter: 11/28/17 Time of Encounter: 10:50 - Assessment and plan (1) Altered mental status Current Visit: Yes Status: Acute Assessment and plan: Acute encephalopathy likely secondary to benzodiazepine and opioid overdose - unclear if this was intentional or accidental Now awake and alert and oriented 3 Patient has visual hallucinations this morning Cardiac telemetry, monitor closely Qualifiers: Altered mental status type: unspecified Qualified Code(s): R41.82 - Altered mental status, unspecified (2) Benzodiazepine overdose Current Visit: Yes Status: Acute Assessment and plan: Benzodiazepine overdose - unclear if this was accidental or intentional Symptoms now improving, monitor closely Psychiatry consult Qualifiers: Encounter type: initial encounter Injury intent: undetermined intent Qualified Code(s): T42.4X4A - Poisoning by benzodiazepines, undetermined, initial encounter (3) CAD (coronary artery disease) Current Visit: Yes Status: Chronic Assessment and plan: Stable, no anginal symptoms at this time Continue Aspirin, Plavix, Lipitor Qualifiers: Coronary Disease-Associated Artery/Lesion type: [place] artery [place] vs. transplanted heart: [place] heart Associated angina: without angina Qualified Code(s): I25.10 - Atherosclerotic heart disease of [place] coronary artery without angina pectoris (4) Type 2 diabetes mellitus Current Visit: Yes Status: Chronic Assessment and plan: Type 2 diabetes mellitus, insulin-dependent, hyperglycemia Tinea insulin sliding scale, glucose checks Qualifiers: Diabetes mellitus complication status: without complication Diabetes mellitus assisted insulin use: unspecified manager intermediate insulin use status Qualified Code(s): E11.9 - Type 2 diabetes mellitus without complications (5) Hypertension Current Visit: Yes Status: Chronic Assessment and plan: Essential hypertension, controlled, monitor Continue Coreg, Zestril Qualifiers: Hypertension type: essential hypertension Qualified Code(s): I10 - Essential (primary) hypertension (6) Tobacco abuse Current Visit: Yes Status: Acute Assessment and plan: Counseled about cessation, nicotine patch (7) DVT prophylaxis Current Visit: Yes Status: Acute Assessment and plan: Heparin subcutaneous - Time Spent With Patient 25 - 35 minutes - Subjective Interval history: Examined this morning. Patient is awake and alert. Not in any distress. Denies chest pain or shortness of breath. No fever. Hemodynamically stable. States she feels better. Tolerating oral diet well. Patient seems to be having hallucinations. She told me this morning that she is seeing spiders on the bed and all over the [place]. No auditory hallucinations noted. No other acute events or complaints. Admitted for altered mental status likely due to benzodiazepine overdose. Currently awake and alert and oriented 3. Patient will need psychiatry consult because of hallucinations. - Constitutional Vitals: Temp Pulse Resp BP Pulse Ox 98.4 F 73 16 95/56 95 11/28/17 15:38 11/28/17 15:38 11/28/17 15:38 11/28/17 15:38 11/28/17 15:38 General appearance: Present: cooperative, A&O X 3, pleasant, no acute distress, answers questions appropriately - Head Head exam: Present: atraumatic - Eye Eye exam: Present: EOMI - ENT ENT exam: Present: mucous membranes moist - Respiratory Respiratory exam: Present: CTAB. Absent: accessory muscle use, chest wall tenderness, rales, respiratory distress, rhonchi, wheezes, tachypnea - Cardiovascular Cardiovascular exam: Present: RRR, +S1, +S2 - GI/Abdominal GI/Abdominal exam: Present: soft. Absent: distended, firm, guarding, tenderness - Extremities Exam Extremities exam: Present: radial pulses palpable and symmetrical. Absent: calf tenderness, cyanotic, pedal edema - Neurological Exam Neurological exam: Present: alert, CN II-XII intact, oriented X3, no focal deficits. Absent: facial droop, speech deficit - Psychiatric Additional comments: Patient seems to have visual hallucinations. Internal Medicine: Result - Labs CBC & Chem 7: 11/27/17 06:13 11/27/17 06:13 Consult Discharge Plan - Plan Referrals: NONE,PCP [Primary Care Provider] -
[2017-11-29] MEDS: *HR* Heparin 5,000 UNIT/ML VIAL SQ SCH ×2 (06:02→17:05)
[2017-11-29] MEDS: D5% in 0.45% NACL w KCl 20 MEQ/1,000 ML MLS IVC SCH ×3 (06:02→21:37)
[2017-11-29] MEDS: *HR* OxyCODONE/APAP 5/325 TABLET PO PRN ×2 (06:03→20:44)
[2017-11-29] MEDS: Insulin LISPRO 300 UNITS/3 ML VIAL SQ SCH ×4 (08:49→20:36)
[2017-11-29] MEDS: Aspirin Enteric Coated 81 MG Tablet PO SCH (08:49)
[2017-11-29] MEDS: ALPRAZolam 0.5 MG TABLET PO PRN ×2 (08:50→20:36)
[2017-11-29] MEDS: Nicotine 14 MG PATCH.TD24 TD SCH (08:50)
--- NOTE | 2017-11-29 12:22 | Consult Note ---
Date of Encounter: 11/29/17 Time of Encounter: 12:16 Assessment & Recommendation (1) Altered mental status Current visit: Yes Status: Acute Assessment & Recommendation: Client reports she is no longer having hallucinations. Believes VH secondary to withdrawals that have now passed. If for any reason they return can use low dose Haldol to treat. Continue Paxil for depression. Recommend she follow up with counseling once discharged as she likes to talk and she has had multiple losses over the past few years that therapy can help her with. Qualifiers: Altered mental status type: unspecified Qualified Code(s): R41.82 - Altered mental status, unspecified History of Present Illness Requesting Physician: Sara Duran CNP Reason for consult: hallucinations History of present illness: Ms. Rollins is a 62 year old female who was admitted secondary to an altered mental status. Now alert and oriented. Client thinks her AMS was secondary to her opiate use. Awaiting surgery for a cracked hip/femur. Started having visual hallucinations during this hospitalization. Likely secondary to withdrawals. Client reports hallucinations have stopped and she is feeling much better. She is hopeful she can have the surgery she needs quickly. Nervous about taking opiates again. Hoping she can go back to Neurontin instead. Admits she suffers from depression but denies any intentional overdose. Denies any history of SI. "I'm made of stronger stuff than that." Currently takes Paxil and reports it helps. Future oriented. CC: Sara Duran CNP Past Med Surg Social Fam HX - Past Medical History Medical history: arthritis, cancer, CHF, COPD, DVT, diabetes, hyperlipidemia, hypertension, myocardial infarction - Past Psychiatric History Psychiatric history: Reports: anxiety, depression Family psychiatric history: Unknown Family History of Suicide: Unknown - Past Surgical History Surgical History: hip replacement - Social History Smoking Status: Current every day smoker Smokeless Tobacco Status: No Alcohol use: none Drug use: none Medications & Allergies Clopidogrel [Plavix] 75 mg PO DAILY 12/07/15 [History] Insulin Glargine [Lantus] 40 unit SQ HS 12/07/15 [History] ALPRAZolam [Xanax 0.5 MG Tablet] 0.5 mg PO TID 05/31/17 [History] Aspirin [Lo-Dose Aspirin EC] 81 mg PO DAILY 06/22/17 [History] Atorvastatin [Lipitor] 40 mg PO HS 06/22/17 [History] Lisinopril [Zestril] 2.5 mg PO DAILY 06/22/17 [History] Omeprazole [PriLOSEC] 40 mg PO DAILY 10/10/17 [History] OxyCODONE/APAP 10/325 [Percocet 10/325 MG] 1 each PO Q6HR PRN 10/10/17 [History] Carvedilol [Coreg] 25 mg PO BID #60 tablet 10/15/17 [Rx] Ferrous Sulfate 325 mg PO DAILY #30 tablet 10/15/17 [Rx] Furosemide [Lasix] 20 mg PO DAILY #30 tablet 10/15/17 [Rx] Sennosides/Docusate Sodium [Senna Plus] 2 each PO BID PRN #20 tablet 10/15/17 [ Rx] Metoprolol [Lopressor] 50 mg PO BID 11/25/17 [History] 3 Allergy/AdvReac Type Severity Reaction Status Date / Time Penicillins [PCN] Allergy Hives Verified 11/25/17 20:57 NSAIDS (Non-Steroidal AdvReac Palpitation Verified 11/25/17 20:57 Anti-Inflamma s Review of Systems Constitutional: Denies: fever, chills, weakness, weight change Eyes: Denies: eye pain, vision change Ears, Nose, Throat: Denies: ear pain, throat pain, dental pain, hearing loss, congestion Cardiovascular: Denies: chest pain, palpitations, dyspnea on exertion Respiratory: Denies: cough, dyspnea, wheezes Gastrointestinal: Denies: abdominal pain, nausea, vomiting, diarrhea, constipation Genitourinary male: Denies: urgency, dysuria, frequency, genital lesions Genitourinary female: Denies: urgency, dysuria, frequency, abnormal menses, dyspareunia Musculoskeletal: Reports: back pain, myalgia. Denies: joint swelling, joint pain Integumentary: Denies: rash, lesions, pruritus Neurological: Reports: confusion, memory loss Endocrine: Denies: fatigue, heat or cold intolerance Hematologic/Lymphatic: Denies: easy bruising, lymphadenopathy Allergic/Immunologic: Denies: urticaria, itchy eyes Mental Status Exam Patient orientation: Yes Person, Yes Time, Yes Place Level of alertness: Alert Patient appearance: Appropriate, Well Groomed Behavior: calm, cooperative Psychomotor activity: Normal Eye contact: Maintains Eye Contact Mood description: Depressed Affect description: congruent with mood Speech pattern: Normal rate, Normal rhythm, Normal tone Speech volume: Normal Thought process: Linear Thought content: No Suicidal ideation, No Homicidal ideation, No Overt delusions Perceptual disturbances: No Auditory hallucinations, No Visual hallucinations Attention span: Capable of Focused Attention Memory description: Grossly Intact Patient reliability: Reliable Historian Intelligence estimate: Average Judgment: Fair Insight: Partial Results - Vital Signs Vital signs: Temp Pulse Resp BP Pulse Ox 98.8 F 80 16 109/62 96 11/29/17 11:28 11/29/17 11:28 11/29/17 11:28 11/29/17 11:28 11/29/17 11:28 - Labs Labs: Laboratory Last Values WBC 11.0 K/mcL (4.3-11.1) 11/27/17 06:13 RBC 4.41 M/mcL (3.82-4.97) 11/27/17 06:13 Hgb 10.4 g/dL (11.5-15.4) L 11/27/17 06:13 Hct 35.0 % (35.3-44.9) L 11/27/17 06:13 MCV 79.4 fL (83.0-100.0) L 11/27/17 06:13 MCH 23.6 pg (28.0-33.3) L 11/27/17 06:13 MCHC 29.7 g/dL (31.6-35.5) L 11/27/17 06:13 RDW 17.5 % (11.5-14.5) H 11/27/17 06:13 Plt Count 639 K/mcL (140-400) H 11/27/17 06:13 MPV 9.2 fL (9.4-12.4) L 11/27/17 06:13 Immature Gran % 0.5 % (0-4) 11/27/17 06:13 Seg Neutrophils % 78.4 % 11/27/17 06:13 Lymphocytes % 13.7 % 11/27/17 06:13 Monocytes % 6.7 % 11/27/17 06:13 Eosinophils % 0.2 % 11/27/17 06:13 Basophils % 0.5 % 11/27/17 06:13 Neutrophils # 8.6 K/mcL (1.6-8.9) 11/27/17 06:13 Lymphocytes # 1.5 K/mcL (0.6-4.6) 11/27/17 06:13 Monocytes # 0.7 K/mcL (0.0-1.3) 11/27/17 06:13 Eosinophils # 0.0 K/mcL (0.0-0.6) 11/27/17 06:13 Basophils # 0.1 K/mcL (0.0-0.2) 11/27/17 06:13 Sodium 142 mEq/L (136-145) 11/27/17 06:13 Potassium 3.7 mEq/L (3.5-5.1) 11/27/17 06:13 Chloride 104 mEq/L (98-107) 11/27/17 06:13 Carbon Dioxide 21 mEq/L (23-29) L 11/27/17 06:13 BUN 12 mg/dL (8-23) 11/27/17 06:13 Creatinine 0.76 mg/dL (0.60-1.20) 11/27/17 06:13 Est GFR ( Amer) > 60 (> 60) 11/27/17 06:13 Est GFR (Non-Af Amer) > 60 (> 60) 11/27/17 06:13 BUN/Creatinine Ratio 16 (6-26) 11/27/17 06:13 Glucose 203 mg/dL (70-105) H 11/27/17 06:13 POC Glucose 305 (58-89) H 11/28/17 15:40 Calculated Osmolality 300 (280-300) 11/27/17 06:13 Calcium 9.5 mg/dL (8.6-10.3) 11/27/17 06:13 TSH 0.347 mcIU/mL (0.340-5.600) 11/26/17 06:48 Free T4 1.12 ng/dl (0.70-2.00) 11/26/17 06:48 Consult Discharge Plan - Plan Referrals: NONE,PCP [Primary Care Provider] -
--- NOTE | 2017-11-29 16:03 | Internal Med Progress Note ---
Date of Encounter: 11/29/17 Time of Encounter: 11:30 - Assessment and plan (1) Altered mental status Current Visit: Yes Status: Acute Assessment and plan: Acute encephalopathy likely secondary to benzodiazepine and opioid overdose - unclear if this was intentional or accidental Now awake and alert and oriented 3 - back to baseline Psychiatry consult - recommendations reviewed, appreciate input Cardiac telemetry, monitor closely, anticipate discharge home tomorrow in a.m. Qualifiers: Altered mental status type: unspecified Qualified Code(s): R41.82 - Altered mental status, unspecified (2) Benzodiazepine overdose Current Visit: Yes Status: Acute Assessment and plan: Benzodiazepine overdose - unclear if this was accidental or intentional Symptoms now improving, monitor closely Psychiatry consult - recommendations reviewed Qualifiers: Encounter type: initial encounter Injury intent: undetermined intent Qualified Code(s): T42.4X4A - Poisoning by benzodiazepines, undetermined, initial encounter (3) CAD (coronary artery disease) Current Visit: Yes Status: Chronic Assessment and plan: Stable, no anginal symptoms at this time Continue Aspirin, Plavix, Lipitor Qualifiers: Coronary Disease-Associated Artery/Lesion type: [place] artery [place] vs. 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 Qualified Code(s): E11.9 - Type 2 diabetes mellitus without complications (5) Hypertension Current Visit: Yes Status: Chronic Assessment and plan: Essential hypertension, controlled, monitor Continue Coreg, Zestril Qualifiers: Hypertension type: essential hypertension Qualified Code(s): I10 - Essential (primary) hypertension (6) Tobacco abuse Current Visit: Yes Status: Acute Assessment and plan: Counseled about cessation, nicotine patch (7) DVT prophylaxis Current Visit: Yes Status: Acute Assessment and plan: Heparin subcutaneous - Time Spent With Patient 25 - 35 minutes - Subjective Interval history: Examined this morning. Patient is awake and alert. Not in any distress. Denies chest pain or shortness of breath. No fever. Hemodynamically stable. States she feels better. Tolerating oral diet well. She does not have any visual hallucinations today. No other acute events or complaints. Admitted for altered mental status likely due to benzodiazepine overdose. Currently awake and alert and oriented 3. Psychiatry has evaluated patient. - Constitutional Vitals: Temp Pulse Resp BP Pulse Ox 98.5 F 84 16 112/62 94 11/29/17 15:39 11/29/17 15:39 11/29/17 15:39 11/29/17 15:39 11/29/17 15:39 General appearance: Present: cooperative, A&O X 3, pleasant, no acute distress, answers questions appropriately - Head Head exam: Present: atraumatic - Eye Eye exam: Present: EOMI - ENT ENT exam: Present: mucous membranes moist - Respiratory Respiratory exam: Present: CTAB. Absent: accessory muscle use, chest wall tenderness, rales, respiratory distress, rhonchi, wheezes, tachypnea - Cardiovascular Cardiovascular exam: Present: RRR, +S1, +S2 - GI/Abdominal GI/Abdominal exam: Present: soft. Absent: distended, firm, guarding, tenderness - Extremities Exam Extremities exam: Present: radial pulses palpable and symmetrical. Absent: calf tenderness, cyanotic, pedal edema - Neurological Exam Neurological exam: Present: alert, oriented X3, no focal deficits. Absent: facial droop, speech deficit Internal Medicine: Result - Labs CBC & Chem 7: 11/27/17 06:13 11/27/17 06:13 - Impressions Impressions Chest X-Ray 11/29/17 11:01 IMPRESSION: Mild left basilar atelectasis or less likely pneumonia. Mild bullous changes. D/ / Ubaldo Gunn MD / Ubaldo Gunn MD Interpreting Provider: Ubaldo Gunn MD Consult Discharge Plan - Plan Referrals: NONE,PCP [Primary Care Provider] -
[2017-11-29] MEDS: Gabapentin 300 MG CAPSULE PO SCH ×2 (17:05→20:36)
[2017-11-30] MEDS: D5% in 0.45% NACL w KCl 20 MEQ/1,000 ML MLS IVC SCH ×2 (01:30→09:48)
[2017-11-30] MEDS: *HR* Heparin 5,000 UNIT/ML VIAL SQ SCH (06:26)
[2017-11-30] MEDS: *HR* OxyCODONE/APAP 5/325 TABLET PO PRN ×2 (06:28→14:59)
[2017-11-30] MEDS: Aspirin Enteric Coated 81 MG Tablet PO SCH (09:45)
[2017-11-30] MEDS: Gabapentin 300 MG CAPSULE PO SCH ×2 (09:46→14:51)
[2017-11-30] MEDS: Nicotine 14 MG PATCH.TD24 TD SCH (09:46)
[2017-11-30] MEDS: Insulin LISPRO 300 UNITS/3 ML VIAL SQ SCH ×2 (09:47→11:56)
[2017-11-30 10:42] LABS: Basophils # 0.1 K/mcL (0.0-0.2); Basophils % 0.7 %; Eosinophils # 0.4 K/mcL (0.0-0.6); Eosinophils % 5.2 %; Hematocrit 29.9 % (35.3-44.9); Immature Granulocytes % 0.8 % (0-4); Lymphocytes # 2.6 K/mcL (0.6-4.6); Lymphocytes % 30.3 %; Mean Corpuscular HGB Conc 28.4 g/dL (31.6-35.5); Mean Corpuscular Hemoglobin 23.7 pg (28.0-33.3); Mean Corpuscular Volume 83.5 fL (83.0-100.0); Mean Platelet Volume 9.4 fL (9.4-12.4); Monocytes # 0.5 K/mcL (0.0-1.3); Monocytes % 6.1 %; Neutrophils # 4.8 K/mcL (1.6-8.9); Platelet Count 404 K/mcL (140-400); Red Blood Count 3.58 M/mcL (3.82-4.97); Red Cell Distribution Width 17.2 % (11.5-14.5); Segmented Neutrophils % 56.9 %
[2017-11-30 10:44] LABS: Hemoglobin 8.5 g/dL (11.5-15.4)
[2017-11-30 10:57] LABS: % Iron Saturation 5 % (15-50); C-Reactive Protein < 5 mg/L (Less than 10); Iron 15 mcg/dL (50-170); Transferrin 238 mg/dL (203-362)
--- NOTE | 2017-11-30 11:07 | Discharge Summary ---
Date of Encounter: 11/30/17 Time of Encounter: 15:20 - Discharge Diagnosis (1) Altered mental status Priority: Primary Status: Resolved Comments: Acute encephalopathy likely secondary to benzodiazepine and opioid overdose - unclear if this was intentional or accidental. Patient denies overdose. Evaluated by psychiatry who thought visual hallucinations secondary to withdrawal. Mentation to baseline at time of discharge. Qualifiers: Altered mental status type: unspecified Qualified Code(s): R41.82 - Altered mental status, unspecified (2) Benzodiazepine overdose Priority: Primary Status: Acute Comments: Suspected however patient denies. Advised to take Rx as prescribed. Qualifiers: Encounter type: initial encounter Injury intent: undetermined intent Qualified Code(s): T42.4X4A - Poisoning by benzodiazepines, undetermined, initial encounter (3) Iron deficiency anemia Priority: Secondary Status: Acute Comments: has knonw hx of iron deficiency anemia. Hgb 8.4 at time of discharge which is consistent to baseline. No active bleeding. Of note platelets noted to be chronically elevated. Recommend repeat CBC within 1 week with PCP and hematology/oncology outpatient follow-up. Qualifiers: Iron deficiency anemia type: inadequate dietary iron intake Qualified Code( s): D50.8 - Other iron deficiency anemias (4) CAD (coronary artery disease) Priority: Secondary Status: Chronic Comments: per hx. asystematic. Denies chest pain. Continue home medication regimen. Qualifiers: Coronary Disease-Associated Artery/Lesion type: [place] artery [place] vs. transplanted heart: [place] heart Associated angina: without angina Qualified Code(s): I25.10 - Atherosclerotic heart disease of [place] coronary artery without angina pectoris (5) Hip fracture, left Priority: Primary Status: Acute Comments: per hx. apparently underwent total hip replacement. Patient is she is being followed by Dr. Delgado for left hip/femur surgical revision. Continue percocet for pain. Qualifiers: Encounter type: sequela Fracture type: closed Qualified Code(s): S72.002S - Fracture of unspecified part of neck of left femur, sequela (6) Acute depression Priority: Primary Status: Acute Comments: per hx and worsened over the last year and a half with the loss of 6 close family members. Evaluated by psychiatry who recommended continuing Paxil for depression and follow-up with outpatient counseling - Discharge Medications Prescriptions: OxyCODONE/APAP 10/325 [Percocet 10/325 MG] 1 each PO Q6HR PRN #28 tablet PRN Reason: Pain Home Medications: Clopidogrel [Plavix] 75 mg PO DAILY 12/07/15 [History] Insulin Glargine [Lantus] 40 unit SQ HS 12/07/15 [History] ALPRAZolam [Xanax 0.5 MG Tablet] 0.5 mg PO TID 05/31/17 [History] Aspirin [Lo-Dose Aspirin EC] 81 mg PO DAILY 06/22/17 [History] Atorvastatin [Lipitor] 40 mg PO HS 06/22/17 [History] Lisinopril [Zestril] 2.5 mg PO DAILY 06/22/17 [History] Omeprazole [PriLOSEC] 40 mg PO DAILY 10/10/17 [History] Carvedilol [Coreg] 25 mg PO BID #60 tablet 10/15/17 [Rx] Ferrous Sulfate 325 mg PO DAILY #30 tablet 10/15/17 [Rx] Furosemide [Lasix] 20 mg PO DAILY #30 tablet 10/15/17 [Rx] Sennosides/Docusate Sodium [Senna Plus] 2 each PO BID PRN #20 tablet 10/15/17 [ Rx] Metoprolol [Lopressor] 50 mg PO BID 11/25/17 [History] OxyCODONE/APAP 10/325 [Percocet 10/325 MG] 1 each PO Q6HR PRN #28 tablet [Rx] Allergies/Adverse Reactions: 3 Allergy/AdvReac Type Severity Reaction Status Date / Time Penicillins [PCN] Allergy Hives Verified 11/25/17 20:57 NSAIDS (Non-Steroidal AdvReac Palpitation Verified 11/25/17 20:57 Anti-Inflamma s Date of admission: 11/26/17 00:48 Primary care physician: PCP NONE Consults: 11/26/17 00:41 Consult to Gyroscopic Engineering Technician [CONS] Routine Reason for SW Consult: benzodiazepine overuse disorder/dependence 11/28/17 17:30 Consult to Psychiatry [CONS] Routine Consulting Provider: Psychiatry Faby Reason for Consult: Visual hallucinations, benzodiazepine overdose Call Completed: No Discharging clinician: Sara Duran Anticipated date of discharge: 11/30/17 - Patient Status Disposition: Home Health Service Condition: Good Functional capacity at discharge: uses cane/walker Overall status at discharge: patient is back to baseline - Discharge Instructions Instructions: Depression (DC), Iron Deficiency Anemia (DC) Follow Up With: NONE,PCP [Primary Care Provider] - (Please call your PCP for follow-up appointment within 1 week) Martinez Delgado MD [Partnered Physician] - (Please follow-up as previously planned) Mati Landis MD [Partnered Physician] - (Please call for an appointment within 1-2 weeks UA showed of anemia and increased platelets) - Diet and Activity Activity: as per the cardiac rehab Diet: advance to your usual diet Interval History: Seen and examined at bedside, patient is new to me. Information obtained from chart review and patient report. Patient denies intentional overdose; says she took Xanax as prescribed. She was drowsy when she awoke and family was concern for overdose. She complains of chronic left hip pain is relieved with as needed Percocet. No chest pain or shortness of breath. Feels better like to go home today Hospital course: See assessment and plan for hospital course - Time Spent with Patient Total time spent providing and/or coordinating discharge services: - Constitutional Vitals: Temp Pulse Resp BP Pulse Ox 98.4 F 76 16 129/78 94 11/30/17 07:14 11/30/17 07:14 11/30/17 07:14 11/30/17 07:14 11/30/17 07:14 General appearance: Present: cooperative, A&O X 3, pleasant, no acute distress, answers questions appropriately - Head Head exam: Present: atraumatic, normocephalic - Eye Eye exam: Present: PERRL, conjuntiva pink, sclera anicteric Pupils: Present: PERRL - Neck Neck exam general surgery: Present: supple, trachea midline. Absent: lymphadenopathy - Respiratory Respiratory exam: Present: CTAB. Absent: accessory muscle use, rales, rhonchi, wheezes - Cardiovascular Cardiovascular exam: Present: RRR, +S1, +S2. Absent: diastolic murmur, gallop, rubs, systolic murmur - GI/Abdominal GI/Abdominal exam: Present: normal bowel sounds, soft, no peritoneal signs. Absent: distended, tenderness - Extremities Exam Extremities exam: Present: warm, radial pulses palpable and symmetrical. Absent : calf tenderness, cyanotic, pedal edema - Neurological Exam Neurological exam: Present: CN II-XII intact, oriented X3, no focal deficits. Absent: pronater drift, facial droop, speech deficit - Skin Skin exam: Present: dry, intact
[2017-11-30 11:15] LABS: Hypochromasia Present (Not Present)
[2017-11-30 11:16] LABS: Anisocytosis 1+ (Not Present); Poikilocytosis 1+ (Not Present); Toxic Granulation Present (Not Present)
[2017-11-30 14:37] LABS: Adenovirus Not Detected (Not Detect); Bordetella Pertussis Not Detected (Not Detect); Chlamydophila pneumoniae Not Detected (Not Detect); Coronavirus 229E Not Detected (Not Detect); Coronavirus HKU1 Not Detected (Not Detect); Coronavirus NL63 Not Detected (Not Detect); Coronavirus OC43 Not Detected (Not Detect); Human Metapneumovirus Not Detected (Not Detect); Human Rhinovirus/Enterovirus Not Detected (Not Detect); Influenza A Subtype 2009 H1 Not Detected (Not Detect); Influenza A Untypeable Not Detected (Not Detect); Influenza B Not Detected (Not Detect); Mycoplasma pneumoniae Not Detected (Not Detect); Parainfluenza Virus 1 Not Detected (Not Detect); Parainfluenza Virus 2 Not Detected (Not Detect); Parainfluenza Virus 3 Not Detected (Not Detect); Parainfluenza Virus 4 Not Detected (Not Detect); Respiratory Syncytial Virus Not Detected (Not Detect)
[2017-11-30] MEDS: ALPRAZolam 0.5 MG TABLET PO PRN (14:59)
[2017-11-30 15:42] VITALS: BP 114/68
--- NOTE | 2017-11-30 17:13 | Physician Discharge Referral ---
Home Health/Hosp Referral Info Transfer to: Home Health Attending Provider: Sara Duran APRN Provider in Charge Post Discharge: PCP - Diagnosis (1) Altered mental status Status: Resolved (2) Benzodiazepine overdose Status: Acute (3) Iron deficiency anemia Status: Acute (4) CAD (coronary artery disease) Status: Chronic (5) Hip fracture, left Status: Acute (6) Acute depression Status: Acute - Respiratory Orders None Smoking Cessation: Smoking cessation has been advised. For more information, call the [place] Tobacco Quit Line at 0-575-HTPO-NOW. - Diet/Nutrition Diet/Nutrition Orders: Regular - Activity Activity Orders: Up ad jnei - Services Needed Following services are medically necessary services: Nursing, Home Health Aide, Physical Therapy, Occupational Therapy - Transfer Medications Prescriptions: OxyCODONE/APAP 10/325 [Percocet 10/325 MG] 1 each PO Q6HR PRN #28 tablet PRN Reason: Pain Home Medications: Clopidogrel [Plavix] 75 mg PO DAILY 12/07/15 [History] Insulin Glargine [Lantus] 40 unit SQ HS 12/07/15 [History] ALPRAZolam [Xanax 0.5 MG Tablet] 0.5 mg PO TID 05/31/17 [History] Aspirin [Lo-Dose Aspirin EC] 81 mg PO DAILY 06/22/17 [History] Atorvastatin [Lipitor] 40 mg PO HS 06/22/17 [History] Lisinopril [Zestril] 2.5 mg PO DAILY 06/22/17 [History] Omeprazole [PriLOSEC] 40 mg PO DAILY 10/10/17 [History] Carvedilol [Coreg] 25 mg PO BID #60 tablet 10/15/17 [Rx] Ferrous Sulfate 325 mg PO DAILY #30 tablet 10/15/17 [Rx] Furosemide [Lasix] 20 mg PO DAILY #30 tablet 10/15/17 [Rx] Sennosides/Docusate Sodium [Senna Plus] 2 each PO BID PRN #20 tablet 10/15/17 [ Rx] Metoprolol [Lopressor] 50 mg PO BID 11/25/17 [History] OxyCODONE/APAP 10/325 [Percocet 10/325 MG] 1 each PO Q6HR PRN #28 tablet [Rx] Allergies/Adverse Reactions: 3 Allergy/AdvReac Type Severity Reaction Status Date / Time Penicillins [PCN] Allergy Hives Verified 11/25/17 20:57 NSAIDS (Non-Steroidal AdvReac Palpitation Verified 11/25/17 20:57 Anti-Inflamma s Certification: Further, I certify that my clinical findings support that this patient is homebound (i.e. absences from home require considerable and taxing effort and are for medical reasons or [employer] services or infrequently or short duration when for other reasons) because: Homebound Reason: Patient requires assistance of a person or device to safely leave home Attestation: My signature below is to certify that this patient is under my care and that I, or nurse practitioner, or a physician's home care assistant working with me, has a face-to -face encounter with this patient.
== END 2017-11-30 16:50 | disposition home health service (06) | DRG 917 ==
LOC: 3BNU
PROVIDERS: ADMIT Internal Medicine Hematology & Oncology; ATTEND Registered Nurse

== ENCOUNTER 2018-05-05 12:54 | Observation (INO) ==
--- NOTE | 2018-05-05 13:50 | Emergency Department Note ---
Disposition Clinical Impression: Post-op bleeding Anemia Qualifiers: Anemia type: iron deficiency Iron deficiency anemia type: unspecified iron deficiency Qualified Code(s): D50.9 - Iron deficiency anemia, unspecified DVT (deep venous thrombosis) Qualifiers: DVT location: lower extremity Affected thrombotic vein of extremity: femoral Disposition: Admitted As Inpatient Condition: Fair Time of Disposition: 17:04 Extremity Problem HPI - General Chief complaint: ED Extremity Problem,Nontraumatic Stated complaint: bleeding from sx site- left hip Time Seen by Provider: 05/05/18 12:58 Source: patient Mode of arrival: ambulatory Limitations: no limitations, physical limitation Nursing Notes Reviewed: Yes Vital Signs Reviewed: Yes - History of Present Illness HPI Narrative: 63yo female with past medical history of CAD x6 cents, CHF, DVT 2015 s/p left hip replacement, atrial fibrillation, breast cancer who presented to [facility] from the office of Dr. Delgado of orthopedic surgery due to bleeding from left hip incision site from left hip replacement on 04/18/2018. The patient is currently residing at [facility]. Yesterday evening she noticed bleeding from the left incision site so the nursing staff replaced the padding and then this morning when she was sitting on she noticed that the padding was saturated with blood. Dr. Delgado's office was called and he had her come to the office after which he instructed her to go to the ED to be admitted to receive 2 untis packed red blood cells, picc line with vancomycin, CBC, BMP, type in screen. She admitted to increased fatigue, weakness, lightheadedness which she did not attribute to anemia. She denied fever, chills, chest pain, shortness of breath, trauma, am being her hip, syncope, like pain, immobilization, melena, hematechezia. She reports that she has been working with physical therapy daily. She denies being on anticoagulation besides Plavix. Pain Scale: 5 - Related Data Home Medications Medication Instructions Recorded Confirmed Clopidogrel [Plavix] 75 mg PO DAILY 12/07/15 05/05/18 Atorvastatin [Lipitor] 40 mg PO HS 06/22/17 05/05/18 Lisinopril [Zestril] 2.5 mg PO DAILY 06/22/17 05/05/18 Omeprazole [PriLOSEC] 40 mg PO BID 10/10/17 05/05/18 Amitriptyline [Elavil] 50 mg PO HS 04/18/18 05/05/18 Aspirin [Adult Aspirin Regimen] 81 mg PO DAILY 04/18/18 05/05/18 Carvedilol [Coreg] 12.5 mg PO QPM 04/18/18 05/05/18 Furosemide [Lasix] 40 mg PO DAILY 04/18/18 05/05/18 Gabapentin [Neurontin] 600 mg PO TID 04/18/18 05/05/18 Ibuprofen [Motrin] 600 mg PO Q6HR PRN 04/18/18 05/05/18 Insulin ASPART [Novolog Flexpen] 10 unit SQ TIDWM 04/18/18 05/05/18 Insulin Glargine,Hum.rec.anlog 50 unit SQ BID 04/18/18 05/05/18 [Basaglar Kwikpen U-100] Levocetirizine Dihydrochloride 5 mg PO DAILY 04/18/18 05/05/18 Metoprolol Succinate [Toprol Xl] 50 mg PO QAM 04/18/18 05/05/18 PARoxetine HCl [Paroxetine HCl] 40 mg PO DAILY 04/18/18 05/05/18 Potassium Chloride [K-Tab ER] 20 meq PO DAILY 04/18/18 05/05/18 Previous Rx's Medication Instructions Recorded ALPRAZolam [Xanax 0.5 MG Tablet] 0.5 mg PO TID 3 Days #9 tablet 04/18/18 Allergies Allergy/AdvReac Type Severity Reaction Status Date / Time Penicillins [PCN] Allergy Hives Verified 05/05/18 17:19 NSAIDS (Non-Steroidal AdvReac Palpitation Verified 05/05/18 17:19 Anti-Inflamma s All systems ED: reviewed and negative except as stated. Review of Systems: As Per HPI Constitutional: Reports: weakness. Denies: fever, chills Eyes: Denies: vision change Cardiovascular: Denies: chest pain Respiratory: Denies: cough, dyspnea Gastrointestinal: Denies: abdominal pain, nausea, vomiting, melena, hematochezia Musculoskeletal: Reports: other (left hip pain) Integumentary: Denies: rash, lesions Neurological: Denies: headache, vertigo Hematological/Lymphatic: Reports: easy bleeding Past Medical History - Past Medical History Source: patient Medical history: Reports: arthritis, cancer, CHF, COPD, DVT, diabetes, GERD, hyperlipidemia, hypertension, myocardial infarction Surgical history: Reports: angioplasty/stent, breast surgery, , hip replacement Psychiatric history: Reports: anxiety, depression GRANT WRITER history: Reports: no GRANT WRITER history - Social History Smoking Status: Former smoker Smokeless Tobacco Status: No Alcohol use: Reports: none Drug use: Reports: none Physical Exam - General Limitations: physical limitation General appearance: alert - Head Head exam: atraumatic, normocephalic - Eye Eye exam: Present: normal appearance - ENT ENT exam: mucous membranes dry - Neck Neck exam: Present: normal inspection - Chest Chest inspection: Present: normal inspection - Respiratory Respiratory exam: Present: wheezes (Bilaterally), other (Rhonchi bilaterally diffuse) - Cardiovascular Cardiovascular exam: Present: regular rate, normal rhythm, systolic murmur - Abdominal Exam Abdominal exam: Present: soft, Non-Tender, normal bowel sounds - Expanded Lower Extremity Exam Hip/Pelvis exam: Present: swelling. Absent: tenderness Lower leg exam: Present: swelling (left lower extremity), erythema. Absent: tenderness (left LE), ecchymosis - Neurological Exam Neurological exam: Present: alert, oriented X3 - Psychiatric Psychiatric exam: Present: normal affect, normal mood - Skin Skin exam: Present: dry, intact Course Course Narrative: 63yo female with past medical history of CAD x6 cents, CHF, DVT 2015 s/p left hip replacement, atrial fibrillation, breast cancer who presented to [facility] from the office of Dr. Delgado of orthopedic surgery due to bleeding from left hip incision site from left hip replacement on 04/18/2018. She reported the bleeding started yesterday evening for which the padding was replaced and then this morning she noticed when sitting up at the pad on her hip was saturated with blood. She denies any recent trauma, bumping her hip, syncope, chest pain, shortness of breath, increased lower leg pain, fever, chills, abdominal pain, nausea. She has been ambulatory with physical therapy since her surgery. Dr. Delgado sent patient to the ED for admission to receive 2 units packed red blood cells, picc line with vancomycin, CBC, BMP, typing screen. After evaluation of the patient there is noticeable left lower extremity swelling. She has a Wells score of 5 making her high risk for DVT. There is no active bleeding at the incision site that currently has dressing over it. Currently pending are left lower extremity Doppler ultrasound, CBC, BMP, PT/INR, typing screen, vancomycin, picc line, blood culture. Will give packed red blood cells once CBC has returned with hemoglobin. - Reevaluation(s) Reevaluation #1: Hemoglobin X .6 left lower extremity ultrasound demonstrated chronic DVT, no acute DVT patient consented for 2 units packed red blood cell will plan to call Dr. Delgado and inform him of ultrasound and labs Time: 15:47 Reevaluation #2: Spoke with Dr. Delgado of orthopedic surgery who was informed of the hemoglobin 6.6 and chronic left lower extremity DVT. He recommended that the patient be discharged back to the long term when she has received her 2 units of packed red blood cells and that he would order any antibiotics that she might need in the future. He wanted her to go back to the long term with the PIC line in place. The patient has been informed and is agreeable to plan. Time: 16:03 Vital Signs Temperature 98.8 F 05/05/18 12:57 Pulse Rate 70 05/05/18 12:57 Respiratory Rate 14 05/05/18 12:57 Blood Pressure 135/67 05/05/18 12:57 O2 Sat by Pulse Oximetry 94 05/05/18 12:57 Temperature 98.5 F 05/05/18 20:15 Pulse Rate 70 05/05/18 20:15 Respiratory Rate 16 05/05/18 20:15 Blood Pressure 111/73 05/05/18 20:15 O2 Sat by Pulse Oximetry 94 05/05/18 20:15 Oxygen Delivery Oxygen Delivery Room Air Extremity Problem, [facility] - [facility] Narrative Medical decision making narrative: 63yo female with past medical history of CAD x6 cents, CHF, DVT 2015 s/p left hip replacement, atrial fibrillation, breast cancer who presented to [facility] from the office of Dr. Delgado of orthopedic surgery due to bleeding from left hip incision site from left hip replacement on 04/18/2018. She reported the bleeding started yesterday evening for which the dressing was replaced and then this morning she noticed when sitting up the dressing was saturated with blood. She denies any recent trauma, bumping her hip, syncope, chest pain, shortness of breath, increased lower leg pain, fever, chills, abdominal pain, nausea. She has been ambulatory with physical therapy since her surgery. Dr. Delgado sent patient to the ED for admission to receive 2 units packed red blood cells, picc line with vancomycin, CBC, BMP, typing screen. After evaluation of the patient there was noticeable left lower extremity swelling. She has a Wells score of 5 making her high risk for DVT. There is no active bleeding at the incision site that currently has dressing over it. Left lower extremity Doppler ultrasound demonstrated left chronic partially occlusive common femoral DVT. Hemoglobin was 6.6. Vancomycin and picc line were administered. Blood culture are pending. The patient was given 2 units packed red blood cells. Dr. Delgado was called and informed of the patient's hemoglobin requiring 2 units blood cells and lower extremity ultrasound findings. The patient is going to be admitted for observation and monitoring of hemoglobin. The hospitalist has accepted admittance due to history of DVT and left lower extremity Doppler ultrasound demonstrating partially occlusive common femoral DVT. The patient has been afebrile, blood pressure stable, in no acute distress. The patient is alert and oriented with full capacity and stated clear understanding of the treatment plan. - Differential Diagnosis Likely: deep venous thrombosis, lower extremity edema - Medical Records Medical records reviewed: Yes I reviewed the patient's medical records. - Lab Data Lab results reviewed: Yes I reviewed the patient's lab results. Result diagrams: 05/05/18 20:45 05/05/18 13:08 Lab Results 05/05/18 05/05/18 05/05/18 Range/Units 13:08 13:08 13:08 WBC 6.3 (4.3-11.1) K/mcL RBC 2.38 L (3.82-4.97) M/mcL Hgb 6.6 L (11.5-15.4) g/dL Hct 21.8 L (35.3-44.9) % MCV 91.6 (83.0-100.0) fL MCH 27.7 L (28.0-33.3) pg MCHC 30.3 L (31.6-35.5) g/dL RDW 17.0 H (11.5-14.5) % Plt Count 570 H (140-400) K/mcL MPV 8.9 L (9.4-12.4) fL Immature Gran % 1.6 (0-4) % Seg Neutrophils % 59.7 % Lymphocytes % 25.3 % Monocytes % 8.3 % Eosinophils % 4.9 % Basophils % 0.2 % Neutrophils # 3.8 (1.6-8.9) K/mcL Lymphocytes # 1.6 (0.6-4.6) K/mcL Monocytes # 0.5 (0.0-1.3) K/mcL Eosinophils # 0.3 (0.0-0.6) K/mcL Basophils # 0.0 (0.0-0.2) K/mcL Nucleated RBCs/100 WBC 0.3 H (0) /100 WBC PT 11.1 (9.4-12.1) Seconds INR 1.0 Sodium 136 (136-145) mEq/L Potassium 4.4 (3.5-5.1) mEq/L Chloride 101 (98-107) mEq/L Carbon Dioxide 30 H (23-29) mEq/L BUN 37 H (8-23) mg/dL Creatinine 1.42 H (0.60-1.20) mg/dL Est GFR ( Amer) 45 L (> 60) Est GFR (Non-Af Amer) 37 L (> 60) BUN/Creatinine Ratio 26 (6-26) Glucose 87 (70-105) mg/dL Calculated Osmolality 290 (280-300) Calcium 9.4 (8.6-10.3) mg/dL Blood Type Antibody Screen Crossmatch 05/05/18 Range/Units 14:12 WBC (4.3-11.1) K/mcL RBC (3.82-4.97) M/mcL Hgb (11.5-15.4) g/dL Hct (35.3-44.9) % MCV (83.0-100.0) fL MCH (28.0-33.3) pg MCHC (31.6-35.5) g/dL RDW (11.5-14.5) % Plt Count (140-400) K/mcL MPV (9.4-12.4) fL Immature Gran % (0-4) % Seg Neutrophils % % Lymphocytes % % Monocytes % % Eosinophils % % Basophils % % Neutrophils # (1.6-8.9) K/mcL Lymphocytes # (0.6-4.6) K/mcL Monocytes # (0.0-1.3) K/mcL Eosinophils # (0.0-0.6) K/mcL Basophils # (0.0-0.2) K/mcL Nucleated RBCs/100 WBC (0) /100 WBC PT (9.4-12.1) Seconds INR Sodium (136-145) mEq/L Potassium (3.5-5.1) mEq/L Chloride (98-107) mEq/L Carbon Dioxide (23-29) mEq/L BUN (8-23) mg/dL Creatinine (0.60-1.20) mg/dL Est GFR ( Amer) (> 60) Est GFR (Non-Af Amer) (> 60) BUN/Creatinine Ratio (6-26) Glucose (70-105) mg/dL Calculated Osmolality (280-300) Calcium (8.6-10.3) mg/dL Blood Type A POSITIVE Antibody Screen NEGATIVE Crossmatch See Detail
[2018-05-05] MEDS ORDERED: *HR* OxyCODONE/APAP 5/325 TABLET PO ONE ×2 (14:13→15:59)
[2018-05-05 14:40] LABS: Basophils % 0.2 %; Eosinophils # 0.3 K/mcL (0.0-0.6); Eosinophils % 4.9 %; Hematocrit 21.8 % (35.3-44.9); Hemoglobin 6.6 g/dL (11.5-15.4); Immature Granulocytes % 1.6 % (0-4); Lymphocytes # 1.6 K/mcL (0.6-4.6); Lymphocytes % 25.3 %; Mean Corpuscular HGB Conc 30.3 g/dL (31.6-35.5); Mean Corpuscular Hemoglobin 27.7 pg (28.0-33.3); Mean Corpuscular Volume 91.6 fL (83.0-100.0); Mean Platelet Volume 8.9 fL (9.4-12.4); Monocytes # 0.5 K/mcL (0.0-1.3); Monocytes % 8.3 %; Neutrophils # 3.8 K/mcL (1.6-8.9); Nucleated Red Blood Cells 0.3 /100 WBC (0); Platelet Count 570 K/mcL (140-400); Red Blood Count 2.38 M/mcL (3.82-4.97); Segmented Neutrophils % 59.7 %
[2018-05-05 14:43] LABS: Prothrombin Time 11.1 Seconds (9.4-12.1)
[2018-05-05 15:01] LABS: Calcium 9.4 mg/dL (8.6-10.3); Potassium 4.4 mEq/L (3.5-5.1)
[2018-05-05] MEDS ORDERED: Lidocaine -MPF 1% 5 ML AMPUL INFILT ONE (15:10)
[2018-05-05] MEDS ORDERED: 0.9 % Sodium Chloride 250 ML ONE ×2 (15:14→23:20)
--- NOTE | 2018-05-05 19:48 | Internal Med History&Physical ---
Date of Encounter: 05/05/18 Time of Encounter: 19:32 Internal Medicine - H&P: HPI Chief complaint: post-op anemia. Admitted From: Emergency Dept Plans for Post Hospital Care: Transfer Inp Rehab Fac History of present illness: Ms. Rollins is a 63 year old female with history of Afib, CAD s/p 6 stents, DVT, PE, breast CA, anemia. Pt is s/p L hip surgery by Dr. Delgado 04/27/2018. Pt had been in rehab since discharged. Yesterday she states she developed acute bleeding a surgery site. Pt states she is only on Plavix and Aspirin. Pt states she had her initial L hip surgery 2014 at [place], [place]. She states she was having trouble walking after her surgery. States she was sent to rehab and was unable to participate in therapy. She was eventually referred to ortho and is s/p L hip surgery 04/27/2018. She was discharged to rehab following surgery. Past Med Surg Social Fam HX - Past Medical History Medical history: arthritis, cancer, CHF, COPD, DVT, diabetes, GERD, hyperlipidemia, hypertension, myocardial infarction Additional medical history: MRSA Pneumonia d/c 06/25/17 from [facility] Psychiatric history: anxiety, depression - Past Surgical History Surgical History: angioplasty/stent, breast surgery, , hip replacement Additional surgical history: rt eye, l hip replacement - Social History Smoking Status: Former smoker Smokeless Tobacco Status: No Alcohol use: none Drug use: none Internal Medicine - H&P: Meds Clopidogrel [Plavix] 75 mg PO DAILY 12/07/15 [History] Atorvastatin [Lipitor] 40 mg PO HS 06/22/17 [History] Lisinopril [Zestril] 2.5 mg PO DAILY 06/22/17 [History] Omeprazole [PriLOSEC] 40 mg PO BID 10/10/17 [History] ALPRAZolam [Xanax 0.5 MG Tablet] 0.5 mg PO TID 3 Days #9 tablet 04/18/18 [Rx] Amitriptyline [Elavil] 50 mg PO HS 04/18/18 [History] Aspirin [Adult Aspirin Regimen] 81 mg PO DAILY 04/18/18 [History] Carvedilol [Coreg] 12.5 mg PO QPM 04/18/18 [History] Furosemide [Lasix] 40 mg PO DAILY 04/18/18 [History] Gabapentin [Neurontin] 600 mg PO TID 04/18/18 [History] Ibuprofen [Motrin] 600 mg PO Q6HR PRN 04/18/18 [History] Insulin ASPART [Novolog Flexpen] 10 unit SQ TIDWM 04/18/18 [History] Insulin Glargine,Hum.rec.anlog [Basaglar Kwikpen U-100] 50 unit SQ BID 04/18/18 [History] Levocetirizine Dihydrochloride 5 mg PO DAILY 04/18/18 [History] Metoprolol Succinate [Toprol Xl] 50 mg PO QAM 04/18/18 [History] PARoxetine HCl [Paroxetine HCl] 40 mg PO DAILY 04/18/18 [History] Potassium Chloride [K-Tab ER] 20 meq PO DAILY 04/18/18 [History] 3 Allergy/AdvReac Type Severity Reaction Status Date / Time Penicillins [PCN] Allergy Hives Verified 05/05/18 17:19 NSAIDS (Non-Steroidal AdvReac Palpitation Verified 05/05/18 17:19 Anti-Inflamma s All Systems PM: A 10-system review of systems was performed and is negative for pertinent findings except as documented above in the HPI. - Constitutional Vitals: Temp Pulse Resp BP Pulse Ox 98.3 F 73 74 114/49 92 05/05/18 17:51 05/05/18 17:36 05/05/18 17:51 05/05/18 17:51 05/05/18 17:51 General appearance: Present: A&O X 3, no acute distress - Head Head exam: Present: atraumatic, normocephalic - Eye Eye exam: Present: PERRL, conjuntiva pink, sclera anicteric. Absent: conjunctival injection Pupils: Present: PERRL - Neck Neck exam general surgery: Present: supple, trachea midline. Absent: lymphadenopathy - Respiratory Respiratory exam: Present: CTAB. Absent: accessory muscle use, rales, rhonchi, wheezes - Cardiovascular Cardiovascular exam: Present: RRR, +S1, +S2. Absent: diastolic murmur, gallop, rubs, systolic murmur - GI/Abdominal GI/Abdominal exam: Present: normal bowel sounds, soft, no peritoneal signs. Absent: distended, tenderness - Extremities Exam Extremities exam: Present: warm, radial pulses palpable and symmetrical. Absent : calf tenderness, cyanotic, pedal edema - Neurological Exam Neurological exam: Present: CN II-XII intact, oriented X3, no focal deficits. Absent: pronater drift, facial droop, speech deficit - Skin Skin exam: Present: dry, intact Internal Med - H&P Results - Labs CBC & Chem 7: 05/05/18 13:08 05/05/18 13:08 - Assessment and plan (1) Acute blood loss as cause of postoperative anemia Current Visit: Yes Status: Acute Assessment and plan: ED discussed case with ortho service who recommended tranfuse 2 units of blood, place picc line and give one time dose of Vanc. I discussed with Dr. Delgado and he will see in consult. (2) CAD (coronary artery disease) Current Visit: No Status: Chronic Assessment and plan: Will hold plavix for now due o bleeding but will continue Aspirin. Will resume other cardiac meds. Qualifiers: Coronary Disease-Associated Artery/Lesion type: unspecified vessel or lesion type [place] vs. transplanted heart: [place] heart Associated angina: without angina Qualified Code(s): I25.10 - Atherosclerotic heart disease of [place] coronary artery without angina pectoris (3) Type 2 diabetes mellitus Current Visit: No Status: Chronic Assessment and plan: Basal and SSI Qualifiers: Diabetes mellitus intermediate designer insulin use: unspecified intermediate designer insulin use status Diabetes mellitus complication status: with unspecified complications Qualified Code(s): E11.8 - Type 2 diabetes mellitus with unspecified complications (4) Hypertension Current Visit: No Status: Chronic Assessment and plan: Pt is on Lisinopril and Metoprolol. Qualifiers: Hypertension type: essential hypertension Qualified Code(s): I10 - Essential (primary) hypertension (5) Iron deficiency anemia Current Visit: No Status: Chronic Assessment and plan: Resuming iron supplement Qualifiers: Iron deficiency anemia type: unspecified iron deficiency Qualified Code(s) : D50.9 - Iron deficiency anemia, unspecified (6) Status post total hip replacement, left Current Visit: No Status: Acute Assessment and plan: s/p hip replacement due to malunion of previous hip replacement 04/27/2018 (7) Acute kidney injury Current Visit: No Status: Resolved Assessment and plan: Will give IVF and check BMP in am. (8) Atrial fibrillation Current Visit: Yes Status: Acute Assessment and plan: Hx of afib. not candidate for anti-coagulation due to severe GI bleed. Qualifiers: Qualified Code(s): I48.91 - Unspecified atrial fibrillation (9) History of pulmonary embolism Current Visit: Yes Status: Acute Assessment and plan: Pt has history of GI on Xarelto. - Time Spent With Patient Total time spent is greater than 50% in coordination of care (as documented) at patient's floor/unit and/or counseling patient: 25 - 35 minutes
[2018-05-05] MEDS ORDERED: Ibuprofen 600 MG TABLET PO PRN (20:07)
[2018-05-05] MEDS ORDERED: Acetaminophen 325 MG TABLET PO PRN (20:09)
[2018-05-05] MEDS ORDERED: Naloxone 0.4 MG/ML INJ IVP PRN (20:09)
[2018-05-05 21:28] LABS: Hematocrit 25.3 % (35.3-44.9); Hemoglobin 7.9 g/dL (11.5-15.4)
[2018-05-05] MEDS ORDERED: *HR* Dextrose 50 % in Water (Syg) 50 ML SYRINGE IVP PRN (22:14)
[2018-05-05] MEDS ORDERED: Dextrose Gel 15 GM/37.5 ML TUBE PO PRN ×2 (22:14)
[2018-05-05] MEDS ORDERED: D5% in Water 1,000 ML IVC PRN (22:14)
[2018-05-05] MEDS: ALPRAZolam 0.5 MG TABLET PO SCH (22:15)
[2018-05-05] MEDS: Insulin DETEMIR 100 UNIT/ML X5UNITS SQ SCH (22:15)
[2018-05-05] MEDS: Gabapentin 300 MG CAPSULE PO SCH (22:15)
--- NOTE | 2018-05-05 22:19 | Emergency Department Note ---
Disposition Clinical Impression: Post-op bleeding Anemia Qualifiers: Anemia type: iron deficiency Iron deficiency anemia type: unspecified iron deficiency Qualified Code(s): D50.9 - Iron deficiency anemia, unspecified DVT (deep venous thrombosis) Qualifiers: DVT location: lower extremity Affected thrombotic vein of extremity: femoral Disposition: Admitted As Inpatient Condition: Fair General Adult HPI - General Chief complaint: ED Extremity Problem,Nontraumatic Stated complaint: bleeding from sx site- left hip Time Seen by Provider: 05/05/18 12:58 Source: patient Mode of arrival: ambulatory Limitations: physical limitation - History of Present Illness Pain Scale: 5 - Related Data Home Medications Medication Instructions Recorded Confirmed Clopidogrel [Plavix] 75 mg PO DAILY 12/07/15 05/05/18 Atorvastatin [Lipitor] 40 mg PO HS 06/22/17 05/05/18 Lisinopril [Zestril] 2.5 mg PO DAILY 06/22/17 05/05/18 Omeprazole [PriLOSEC] 40 mg PO BID 10/10/17 05/05/18 Amitriptyline [Elavil] 50 mg PO HS 04/18/18 05/05/18 Aspirin [Adult Aspirin Regimen] 81 mg PO DAILY 04/18/18 05/05/18 Carvedilol [Coreg] 12.5 mg PO QPM 04/18/18 05/05/18 Furosemide [Lasix] 40 mg PO DAILY 04/18/18 05/05/18 Gabapentin [Neurontin] 600 mg PO TID 04/18/18 05/05/18 Ibuprofen [Motrin] 600 mg PO Q6HR PRN 04/18/18 05/05/18 Insulin ASPART [Novolog Flexpen] 10 unit SQ TIDWM 04/18/18 05/05/18 Insulin Glargine,Hum.rec.anlog 50 unit SQ BID 04/18/18 05/05/18 [Basaglar Kwikpen U-100] Levocetirizine Dihydrochloride 5 mg PO DAILY 04/18/18 05/05/18 Metoprolol Succinate [Toprol Xl] 50 mg PO QAM 04/18/18 05/05/18 PARoxetine HCl [Paroxetine HCl] 40 mg PO DAILY 04/18/18 05/05/18 Potassium Chloride [K-Tab ER] 20 meq PO DAILY 04/18/18 05/05/18 Previous Rx's Medication Instructions Recorded ALPRAZolam [Xanax 0.5 MG Tablet] 0.5 mg PO TID 3 Days #9 tablet 04/18/18 Allergies Allergy/AdvReac Type Severity Reaction Status Date / Time Penicillins [PCN] Allergy Hives Verified 05/05/18 17:19 NSAIDS (Non-Steroidal AdvReac Palpitation Verified 05/05/18 17:19 Anti-Inflamma s Constitutional: Reports: weakness. Denies: fever, chills Eyes: Denies: vision change Cardiovascular: Denies: chest pain Respiratory: Denies: cough, dyspnea Gastrointestinal: Denies: abdominal pain, nausea, vomiting, melena, hematochezia Musculoskeletal: Reports: other (left hip pain) Integumentary: Denies: rash, lesions Neurological: Denies: headache, vertigo Hematological/Lymphatic: Reports: easy bleeding Past Medical History - Past Medical History Medical history: Reports: arthritis, cancer, CHF, COPD, DVT, diabetes, GERD, hyperlipidemia, hypertension, myocardial infarction Surgical history: Reports: angioplasty/stent, breast surgery, , hip replacement Psychiatric history: Reports: anxiety, depression 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: Reports: 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 - Social History Smoking Status: Former smoker Smokeless Tobacco Status: No Alcohol use: Reports: none Drug use: Reports: none Physical Exam - General Limitations: physical limitation General appearance: alert Course Vital Signs Temperature 98.8 F 05/05/18 12:57 Pulse Rate 70 05/05/18 12:57 Respiratory Rate 14 05/05/18 12:57 Blood Pressure 135/67 05/05/18 12:57 O2 Sat by Pulse Oximetry 94 05/05/18 12:57 Temperature 98.5 F 05/05/18 20:15 Pulse Rate 70 05/05/18 20:15 Respiratory Rate 16 05/05/18 20:15 Blood Pressure 111/73 05/05/18 20:15 O2 Sat by Pulse Oximetry 94 05/05/18 20:15 Oxygen Delivery Oxygen Delivery Room Air Medical Decision Making - Lab Data Result diagrams: 05/05/18 20:45 05/05/18 13:08 Lab Results 05/05/18 05/05/18 05/05/18 Range/Units 13:08 13:08 13:08 WBC 6.3 (4.3-11.1) K/mcL RBC 2.38 L (3.82-4.97) M/mcL Hgb 6.6 L (11.5-15.4) g/dL Hct 21.8 L (35.3-44.9) % MCV 91.6 (83.0-100.0) fL MCH 27.7 L (28.0-33.3) pg MCHC 30.3 L (31.6-35.5) g/dL RDW 17.0 H (11.5-14.5) % Plt Count 570 H (140-400) K/mcL MPV 8.9 L (9.4-12.4) fL Immature Gran % 1.6 (0-4) % Seg Neutrophils % 59.7 % Lymphocytes % 25.3 % Monocytes % 8.3 % Eosinophils % 4.9 % Basophils % 0.2 % Neutrophils # 3.8 (1.6-8.9) K/mcL Lymphocytes # 1.6 (0.6-4.6) K/mcL Monocytes # 0.5 (0.0-1.3) K/mcL Eosinophils # 0.3 (0.0-0.6) K/mcL Basophils # 0.0 (0.0-0.2) K/mcL Nucleated RBCs/100 WBC 0.3 H (0) /100 WBC PT 11.1 (9.4-12.1) Seconds INR 1.0 Sodium 136 (136-145) mEq/L Potassium 4.4 (3.5-5.1) mEq/L Chloride 101 (98-107) mEq/L Carbon Dioxide 30 H (23-29) mEq/L BUN 37 H (8-23) mg/dL Creatinine 1.42 H (0.60-1.20) mg/dL Est GFR ( Amer) 45 L (> 60) Est GFR (Non-Af Amer) 37 L (> 60) BUN/Creatinine Ratio 26 (6-26) Glucose 87 (70-105) mg/dL Calculated Osmolality 290 (280-300) Calcium 9.4 (8.6-10.3) mg/dL Blood Type Antibody Screen Crossmatch 05/05/18 Range/Units 14:12 WBC (4.3-11.1) K/mcL RBC (3.82-4.97) M/mcL Hgb (11.5-15.4) g/dL Hct (35.3-44.9) % MCV (83.0-100.0) fL MCH (28.0-33.3) pg MCHC (31.6-35.5) g/dL RDW (11.5-14.5) % Plt Count (140-400) K/mcL MPV (9.4-12.4) fL Immature Gran % (0-4) % Seg Neutrophils % % Lymphocytes % % Monocytes % % Eosinophils % % Basophils % % Neutrophils # (1.6-8.9) K/mcL Lymphocytes # (0.6-4.6) K/mcL Monocytes # (0.0-1.3) K/mcL Eosinophils # (0.0-0.6) K/mcL Basophils # (0.0-0.2) K/mcL Nucleated RBCs/100 WBC (0) /100 WBC PT (9.4-12.1) Seconds INR Sodium (136-145) mEq/L Potassium (3.5-5.1) mEq/L Chloride (98-107) mEq/L Carbon Dioxide (23-29) mEq/L BUN (8-23) mg/dL Creatinine (0.60-1.20) mg/dL Est GFR ( Amer) (> 60) Est GFR (Non-Af Amer) (> 60) BUN/Creatinine Ratio (6-26) Glucose (70-105) mg/dL Calculated Osmolality (280-300) Calcium (8.6-10.3) mg/dL Blood Type A POSITIVE Antibody Screen NEGATIVE Crossmatch See Detail Critical Care Time Critical Care Time: Yes Total Critical Care Time: 60 Attestation: The high probability of a clinically significant, sudden or life threatening deterioration of the [heme/CV] system(s) required my full and direct attention, intervention and personal management. The aggregate critical care time was [60] minutes. This time is in addition to time spent performing reported procedures but includes the following: [x] Data Review and interpretation [x] Patient assessment and monitoring of vital signs [x] Documentation [x] Medication orders and management Attestation Statement - Attestation Attestation: I examined this patient and my medical decision-making was reviewed with the Resident Physician, Dr. Marshall. I agree with the documented findings, disposition and treatment plan as described except to the extent set forth below. Patient is a 63-year-old white female who is status post left hip surgery by Dr. Delgado and was sent from his office today for anemia with orders that show he would like a PICC line placed, vancomycin IV started and 2 units packed red blood cell transfusion for blood loss related anemia. Patient having no active bleeding from the site at this time and Dr. Delgado just placed a new fresh dressing to the left hip area which has no evidence of bleeding or bleeding through the dressing. Patient has stable vital signs on arrival and was complaining of just some gradual worsening generalized weakness over the past few days as well as increased pain to the left hip and thigh area. Patient also has noticeable erythema to the left lower extremity diffusely with soft tissue swelling compared to the right lower extremity. Patient has a prior history of DVT but is no longer anticoagulated at this time. I agree with patient's physical exam findings as documented. Vital signs are stable she is in no acute distress with no chest pain or shortness of breath no signs of respiratory distress on arrival. Patient had laboratory evaluation confirming her anemia and was typed and crossed for 2 units packed red blood cells was initiated in the ED. Patient also received PICC line by interventional radiology in the ER, cultures were also sent, and she was started on vancomycin IV. Due to patient's thigh pain, left lower extremity swelling and erythema with prior history of DVT we did do a left lower extremity venous Doppler. This showed a partial occlusion of the left common femoral vein. This complicates the picture as we have no prior imaging study in our system for comparison and it appeared chronic in nature but is not occlusion with acute pain and symptomatic lower extremity edema and erythema. We cannot anticoagulate her at this time and she has been having bleeding from her wound as well as resulting anemia and is receiving a blood transfusion at this time. We spoke with the hospitalist in regards to patient' s current situation and feel she would benefit from admission and further observation and repeat H&H and decision over management for DVT. Patient remains hemodynamically stable in the ER at this time and will be admitted to the hospitalist service for further management.
[2018-05-05] MEDS ORDERED: Furosemide 20 MG/2 ML VIAL IVP ONE (22:25)
[2018-05-05] MEDS: *HR* OxyCODONE Immed Rel 5 MG TABLET PO PRN (22:53)
[2018-05-06] MEDS ORDERED: 0.9 % Sodium Chloride 250 ML ONE (03:31)
[2018-05-06] MEDS: *HR* OxyCODONE Immed Rel 5 MG TABLET PO PRN ×3 (06:03→16:16)
--- NOTE | 2018-05-06 06:46 | Orthopedic Consult Note ---
Date of Encounter: 05/06/18 Time of Encounter: 06:44 History of Present Illness HPI: Ms. Rollins is a 63 year old female Status post major left hip surgery. Patient was seen in the office yesterday hematocrit was 6.9 some slight erythema around the incision. Patient was sent to the ER for PICC line and for transfusion because there were no beds available within the facility. Plan was for patient to be discharged back to nursing facility. Unfortunately the patient was admitted even after discussion by myself with the ER doctor. Patient is finishing up her last unit of blood I evaluated the dressing minimal drainage. Patient to be discharged today we will do a dressing change prior to discharge showed has a follow-up in the office. Past Med Surg Social Fam HX - Past Medical History Medical history: arthritis, cancer, CHF, COPD, DVT, diabetes, GERD, hyperlipidemia, hypertension, myocardial infarction Additional medical history: MRSA Pneumonia d/c 06/25/[address] [facility] Psychiatric history: anxiety, depression - Past Surgical History Surgical History: angioplasty/stent, breast surgery, , hip replacement Additional surgical history: rt eye, l hip replacement - Social History Smoking Status: Former smoker Packs per day: 0.5 Smokeless Tobacco Status: No Alcohol use: none Drug use: none Medications and Allergies Clopidogrel [Plavix] 75 mg PO DAILY 12/07/15 [History] Atorvastatin [Lipitor] 40 mg PO HS 06/22/17 [History] Lisinopril [Zestril] 2.5 mg PO DAILY 06/22/17 [History] Omeprazole [PriLOSEC] 40 mg PO BID 10/10/17 [History] ALPRAZolam [Xanax 0.5 MG Tablet] 0.5 mg PO TID 3 Days #9 tablet 04/18/18 [Rx] Amitriptyline [Elavil] 50 mg PO HS 04/18/18 [History] Aspirin [Adult Aspirin Regimen] 81 mg PO DAILY 04/18/18 [History] Carvedilol [Coreg] 12.5 mg PO QPM 04/18/18 [History] Furosemide [Lasix] 40 mg PO DAILY 04/18/18 [History] Gabapentin [Neurontin] 600 mg PO TID 04/18/18 [History] Ibuprofen [Motrin] 600 mg PO Q6HR PRN 04/18/18 [History] Insulin ASPART [Novolog Flexpen] 10 unit SQ TIDWM 04/18/18 [History] Insulin Glargine,Hum.rec.anlog [Basaglar Kwikpen U-100] 50 unit SQ BID 04/18/18 [History] Levocetirizine Dihydrochloride 5 mg PO DAILY 04/18/18 [History] Metoprolol Succinate [Toprol Xl] 50 mg PO QAM 04/18/18 [History] PARoxetine HCl [Paroxetine HCl] 40 mg PO DAILY 04/18/18 [History] Potassium Chloride [K-Tab ER] 20 meq PO DAILY 04/18/18 [History] 3 Allergy/AdvReac Type Severity Reaction Status Date / Time Penicillins [PCN] Allergy Hives Verified 05/05/18 17:19 NSAIDS (Non-Steroidal AdvReac Palpitation Verified 05/05/18 17:19 Anti-Inflamma s All Systems Reviewed: The remainder of the systems were reviewed and are negative Physical Exam - Constitutional Vitals: Temp Pulse Resp BP Pulse Ox 98.0 F 64 16 120/59 91 05/06/18 04:25 05/06/18 04:25 05/06/18 04:25 05/06/18 04:25 05/06/18 04:25 Results - Labs Result Diagrams: 05/05/18 20:45 05/05/18 13:08 Labs: Abnormal lab results RBC 2.38 M/mcL (3.82-4.97) L 05/05/18 13:08 Hgb 7.9 g/dL (11.5-15.4) L 05/05/18 20:45 Hct 25.3 % (35.3-44.9) L 05/05/18 20:45 MCH 27.7 pg (28.0-33.3) L 05/05/18 13:08 MCHC 30.3 g/dL (31.6-35.5) L 05/05/18 13:08 RDW 17.0 % (11.5-14.5) H 05/05/18 13:08 Plt Count 570 K/mcL (140-400) H 05/05/18 13:08 MPV 8.9 fL (9.4-12.4) L 05/05/18 13:08 Nucleated RBCs/100 WBC 0.3 /100 WBC (0) H 05/05/18 13:08 Carbon Dioxide 30 mEq/L (23-29) H 05/05/18 13:08 BUN 37 mg/dL (8-23) H 05/05/18 13:08 Creatinine 1.42 mg/dL (0.60-1.20) H 05/05/18 13:08 Est GFR ( Amer) 45 (> 60) L 05/05/18 13:08 Est GFR (Non-Af Amer) 37 (> 60) L 05/05/18 13:08 POC Glucose 294 mg/dL (70-99) H 05/05/18 19:39 H & H 05/05/18 Range/Units 20:45 Hgb 7.9 L (11.5-15.4) g/dL Hct 25.3 L (35.3-44.9) % All other labs normal. Consult Discharge Plan - Plan Referrals: Jessica Vasquez, COMMERCIAL LOAN ASSISTANT [Primary Care Provider] -
[2018-05-06] MEDS ORDERED: Insulin LISPRO 300 UNITS/3 ML VIAL SQ SCH ×2 (08:00→21:00)
[2018-05-06] MEDS: Insulin LISPRO 300 UNITS/3 ML VIAL SQ SCH ×2 (08:12→12:23)
[2018-05-06] MEDS ORDERED: Loratadine 10 MG TABLET PO SCH (09:00)
[2018-05-06] MEDS ORDERED: Furosemide 20 MG TABLET PO SCH (09:00)
[2018-05-06] MEDS ORDERED: Metoprolol XL (24 HR) Succ 50 MG TAB.ER.24H PO SCH (09:00)
[2018-05-06] MEDS ORDERED: Aspirin Enteric Coated 81 MG Tablet PO SCH (09:00)
[2018-05-06] MEDS: ALPRAZolam 0.5 MG TABLET PO SCH ×2 (09:47→16:16)
[2018-05-06] MEDS: Gabapentin 300 MG CAPSULE PO SCH (09:47)
[2018-05-06] MEDS: Insulin DETEMIR 100 UNIT/ML X5UNITS SQ SCH (09:47)
[2018-05-06 10:05] LABS: Basophils % 0.7 %; Eosinophils % 5.1 %; Hematocrit 32.1 % (35.3-44.9); Immature Granulocytes % 1.6 % (0-4); Lymphocytes % 19.8 %; Mean Corpuscular HGB Conc 31.5 g/dL (31.6-35.5); Mean Corpuscular Hemoglobin 28.4 pg (28.0-33.3); Mean Corpuscular Volume 90.2 fL (83.0-100.0); Mean Platelet Volume 8.9 fL (9.4-12.4); Monocytes % 7.7 %; Platelet Count 514 K/mcL (140-400); Red Blood Count 3.56 M/mcL (3.82-4.97); Red Cell Distribution Width 17.1 % (11.5-14.5); Segmented Neutrophils % 65.1 %
[2018-05-06 10:06] LABS: Basophils # 0.1 K/mcL (0.0-0.2); Eosinophils # 0.4 K/mcL (0.0-0.6); Lymphocytes # 1.5 K/mcL (0.6-4.6); Monocytes # 0.6 K/mcL (0.0-1.3); Neutrophils # 4.8 K/mcL (1.6-8.9)
--- NOTE | 2018-05-06 10:08 | Discharge Summary ---
<Kirk Parada - Last Filed: 05/06/18 10:18> - NOTES TO OUTPATIENT PROVIDER Notes to Outpatient Provider: Follow up and plan per Orthopedics. Orders not resulted at time of discharge: Pending orders 05/06/18 04:00 Complete Blood Count [HEME] AM 0400 05/06/18 08:30 BMP [Basic Metabolic Panel] Routine Date of Encounter: 05/06/18 Time of Encounter: 08:50 - Discharge Diagnosis (1) Acute blood loss as cause of postoperative anemia Priority: Primary Status: Acute (2) Status post total hip replacement, left Priority: Secondary Status: Acute (3) DVT (deep venous thrombosis) Priority: Secondary Status: Acute Qualifiers: DVT location: lower extremity Affected thrombotic vein of extremity: femoral Chronicity: chronic Laterality: left Qualified Code(s): I82.512 - Chronic embolism and thrombosis of left femoral vein (4) Type 2 diabetes mellitus Priority: Secondary Status: Chronic Qualifiers: 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 transplanted heart: sioux heart Associated angina: without angina Qualified Code(s): I25.10 - Atherosclerotic heart disease of [place] coronary artery without angina pectoris (7) Hypertension Priority: Secondary Status: Chronic Qualifiers: Hypertension type: essential hypertension Qualified Code(s): I10 - Essential (primary) hypertension Hospital course: Ms. Rollins is a 63 year old female status post major left hip surgery. Seen yesterday as outpatient in Ortho office. Dr. Delgado assessed hip wound. Patient noted to be acutely anemic (H/H from 6/6 showing H/H 6.9/22.3). Patient noted to be easily winded while speaking. From Ortho's note, it appears patient was to present to the ED for 2 units of blood (received 4 units total), as well as PICC line with Vancomycin x 1 dose of 15mg/kg. Pressure dressing applied, with dressing changes every 6 hours. Cleanse with soap and water with each dressing change and pat dry. Patient to follow up early next week for reexamination by Ortho. Patient was admitted for overnight administration of pRBC, not completed until this AM. Repeat CBC showing H/H of 10.1/32.1 and CMP with improving Cr of 1.[address] showed subcutaneous edema, presumably postsurgical. Doppler showing chronic partially occlusive thrombus in the common femoral; patient on Plavix and ASA but not on anticoagulation due to hx or GI bleed; she does have a IVC filter. Plan to return to rehab facility today with PICC for continuation of IV antibiotics. Further plan established by Ortho. Wound check set for 05/10/18 and Follow up scheduled for 05/18/18, Per Ortho tele encounter:Orders for Vancomycin 15 mg/kg BID x10 days faxed to [facility]. Discharge discussed with: patient, nurse - Time Spent with Patient Total time spent providing and/or coordinating discharge services: Less than 30 minutes - Discharge Medications Prescriptions: OxyCODONE Immed Rel [Roxicodone 5 MG] 10 mg PO Q4HR PRN 3 Days #18 tablet PRN Reason: Moderate Pain Home Medications: Atorvastatin [Lipitor] 40 mg PO HS 06/22/17 [History] Lisinopril [Zestril] 2.5 mg PO DAILY 06/22/17 [History] Omeprazole [PriLOSEC] 40 mg PO BID 10/10/17 [History] ALPRAZolam [Xanax 0.5 MG Tablet] 0.5 mg PO TID 3 Days #9 tablet 04/18/18 [Rx] Amitriptyline [Elavil] 50 mg PO HS 04/18/18 [History] Aspirin [Adult Aspirin Regimen] 81 mg PO DAILY 04/18/18 [History] Carvedilol [Coreg] 12.5 mg PO QPM 04/18/18 [History] Furosemide [Lasix] 40 mg PO DAILY 04/18/18 [History] Gabapentin [Neurontin] 600 mg PO TID 04/18/18 [History] Ibuprofen [Motrin] 600 mg PO Q6HR PRN 04/18/18 [History] Insulin ASPART [Novolog Flexpen] 10 unit SQ TIDWM 04/18/18 [History] Insulin Glargine,Hum.rec.anlog [Basaglar Kwikpen U-100] 50 unit SQ BID 04/18/18 [History] Levocetirizine Dihydrochloride 5 mg PO DAILY 04/18/18 [History] Metoprolol Succinate [Toprol Xl] 50 mg PO QAM 04/18/18 [History] PARoxetine HCl [Paroxetine HCl] 40 mg PO DAILY 04/18/18 [History] Potassium Chloride [K-Tab ER] 20 meq PO DAILY 04/18/18 [History] OxyCODONE Immed Rel [Roxicodone 5 MG] 10 mg PO Q4HR PRN 3 Days #18 tablet [Rx] Allergies/Adverse Reactions: 3 Allergy/AdvReac Type Severity Reaction Status Date / Time Penicillins [PCN] Allergy Hives Verified 05/05/18 17:19 NSAIDS (Non-Steroidal AdvReac Palpitation Verified 05/05/18 17:19 Anti-Inflamma s Date of admission: 05/05/18 18:14 Primary care physician: Jessica Vasquez CNP Consults: 05/05/18 21:15 Consult to Orthopedic Surgery [CONS] Routine Consulting Provider: Martinez Delgado Reason for Consult: post-op anemia Time Notified: 09:15 Call Completed: Yes Discharging clinician: Avel Shannon Anticipated date of discharge: 05/06/18 - Constitutional Vitals: Temp Pulse Resp BP Pulse Ox 98.2 F 69 16 107/70 95 05/06/18 07:13 05/06/18 07:13 05/06/18 07:13 05/06/18 07:13 05/06/18 07:13 General appearance: Present: cooperative, A&O X 3, no acute distress, answers questions appropriately - Head Head exam: Present: atraumatic, normocephalic - Eye Eye exam: Present: EOMI, sclera anicteric - ENT ENT exam: Present: mucous membranes moist - Neck Neck exam general surgery: Present: full ROM, normal inspection - Respiratory Respiratory exam: Present: wheezes. Absent: respiratory distress, rhonchi, stridor - Cardiovascular Cardiovascular exam: Present: RRR, +S1, +S2 - GI/Abdominal GI/Abdominal exam: Present: normal bowel sounds, soft. Absent: tenderness - Extremities Exam Extremities exam: Present: normal capillary refill, warm Additional comments: Swelling of postoperative (left) lower extremity. C/D/I bandage to left lateral thigh(seen this AM by Ortho, new bandage place, I did not remove for my exam). - Neurological Exam Neurological exam: Present: alert, oriented X3, no focal deficits. Absent: speech deficit - Psychiatric Psychiatric exam: Present: normal affect, normal mood - Skin Skin exam: Present: dry, warm. Absent: rash - Patient Status Disposition: Transfer Inpatient Rehab Fac Condition: Fair Overall status at discharge: patient is progressing back to baseline - Discharge Instructions Instructions: Atrial Fibrillation (DC), Anemia (GEN) Follow Up With: Jessica Vasquez CNP [Primary Care Provider] - 05/11/18 4:00 pm Additional Instructions: Pressure dressing with dressing changes every 6 hours. Cleanse with soap and water with each dressing change and pat dry. Patient to follow up early next week for reexamination by Ortho. Wound check set for 05/10/18 and Follow up scheduled for 05/18/18 Orders for Vancomycin 15 mg/kg BID x10 days faxed to [facility] by Ortho. Recommend checking H/H in a few days to monitor anemia. - Diet and Activity Activity: as per physical therapy Diet: diabetic diet - VTE Reasons for not Prescribing Prophylaxis: Treatment not Indicated - Low risk for VTE <Avel Shannon - Last Filed: 05/06/18 16:38> Date of Encounter: 05/06/18 Hospital course: Ms. Rollins is a 63 year old female - Time Spent with Patient Total time spent providing and/or coordinating discharge services: Date of admission: 05/05/18 18:14 Primary care physician: Jessica Vasquez CNP Consults: 05/05/18 21:15 Consult to Orthopedic Surgery [CONS] Routine Consulting Provider: Martinez Delgado Reason for Consult: post-op anemia Time Notified: 09:15 Call Completed: Yes - Constitutional Vitals: Temp Pulse Resp BP Pulse Ox 97.8 F 65 18 156/85 96 05/06/18 11:39 05/06/18 11:39 05/06/18 11:39 05/06/18 11:39 05/06/18 12:00 - Attending Attestation I saw and examined this patient independently, and my medical decision making was reviewed with the Resident on 2017. I agree with the documented findings, assessment and treatment plan as described in the progress note or discharge summary. Addendum entered and electronically signed by Kirk Parada DO 13:37: Addition to plan: recommend checking Vancomycin trough after 3rd dose (1st given inpatient). Recommend checking BMP twice weekly to follow IRAIS.
[2018-05-06 10:10] LABS: Hemoglobin 10.1 g/dL (11.5-15.4)
[2018-05-06 10:16] LABS: Calcium 8.9 mg/dL (8.6-10.3); Potassium 4.5 mEq/L (3.5-5.1)
--- NOTE | 2018-05-06 11:12 | Physician Discharge Referral ---
ExtendedCare Referral Info Transfer To: [facility] Provider in Charge after Transfer: PCP Institutional Level of Care: Skilled - Diagnosis (1) Acute blood loss as cause of postoperative anemia Priority: Primary Status: Acute (2) Status post total hip replacement, left Priority: Secondary Status: Acute (3) DVT (deep venous thrombosis) Priority: Secondary Status: Acute (4) Type 2 diabetes mellitus Priority: Secondary Status: Chronic (5) Acute kidney injury Priority: Secondary Status: Resolved (6) CAD (coronary artery disease) Priority: Secondary Status: Chronic (7) Hypertension Priority: Secondary Status: Chronic - Transfer Medications Prescriptions: OxyCODONE Immed Rel [Roxicodone 5 MG] 10 mg PO Q4HR PRN 3 Days #18 tablet PRN Reason: Moderate Pain Home Medications: Atorvastatin [Lipitor] 40 mg PO HS 06/22/17 [History] Lisinopril [Zestril] 2.5 mg PO DAILY 06/22/17 [History] Omeprazole [PriLOSEC] 40 mg PO BID 10/10/17 [History] ALPRAZolam [Xanax 0.5 MG Tablet] 0.5 mg PO TID 3 Days #9 tablet 04/18/18 [Rx] Amitriptyline [Elavil] 50 mg PO HS 04/18/18 [History] Aspirin [Adult Aspirin Regimen] 81 mg PO DAILY 04/18/18 [History] Carvedilol [Coreg] 12.5 mg PO QPM 04/18/18 [History] Furosemide [Lasix] 40 mg PO DAILY 04/18/18 [History] Gabapentin [Neurontin] 600 mg PO TID 04/18/18 [History] Ibuprofen [Motrin] 600 mg PO Q6HR PRN 04/18/18 [History] Insulin ASPART [Novolog Flexpen] 10 unit SQ TIDWM 04/18/18 [History] Insulin Glargine,Hum.rec.anlog [Basaglar Kwikpen U-100] 50 unit SQ BID 04/18/18 [History] Levocetirizine Dihydrochloride 5 mg PO DAILY 04/18/18 [History] Metoprolol Succinate [Toprol Xl] 50 mg PO QAM 04/18/18 [History] PARoxetine HCl [Paroxetine HCl] 40 mg PO DAILY 04/18/18 [History] Potassium Chloride [K-Tab ER] 20 meq PO DAILY 04/18/18 [History] OxyCODONE Immed Rel [Roxicodone 5 MG] 10 mg PO Q4HR PRN 3 Days #18 tablet [Rx] Allergies/Adverse Reactions: 3 Allergy/AdvReac Type Severity Reaction Status Date / Time Penicillins [PCN] Allergy Hives Verified 05/05/18 17:19 NSAIDS (Non-Steroidal AdvReac Palpitation Verified 05/05/18 17:19 Anti-Inflamma s - Respiratory Orders None Smoking Cessation: Smoking cessation has been advised. For more information, call the [place] Tobacco Quit Line at 2-960-QIZU-NOW. - Lab Orders Lab Orders: Other (include drug levels w/frequency) (order written to check H/H in 3 days) - Advance Directives Code Status: Full Code - Mobility Orders Other (per PT) - Rehabiliation Orders Rehab Potential: Good Rehab Orders: ROM Exercises, Evaluation for Physical Therapy, Evaluation for Occupational Therapy - Treatments Skin tear care topically daily PRN per policy List/Other: Pressure dressing with dressing changes every 6 hours. Cleanse with soap and water with each dressing change and pat dry. Patient to follow up early next week for reexamination by Ortho. Wound check set for 05/10/18 and Follow up scheduled for 05/18/18. Orders for Vancomycin 15 mg/kg BID x10 days faxed to [facility] by Ortho. Recommend checking H/H in 3 days to monitor anemia. - Diet Orders Cardiac CERTIFICATION: I certify that the transfer of the above named patient to an Extended Care Facility is necessary for the continuing treatment of the diagnosis listed. The above information is true and accurate reflection of patient's current condition. Confidential - Redisclosure prohibited without a patient's written consent.
[2018-05-06 11:40] VITALS: BP 156/85
== END 2018-05-06 16:41 ==
LOC: EMEROO 12:54 → 2NENU 12:54
PROVIDERS: ADMIT Internal Medicine; ATTEND Internal Medicine

== ENCOUNTER 2018-10-31 08:39 | Inpatient (IN) ==
--- NOTE | 2018-10-31 08:51 | History & Physical Report ---
Date of Encounter: 10/31/18 Time of Encounter: 08:50 24 Hour HP Update - Instructions Instructions: If the History and Physical is less than 30 days old and was completed prior to A.M. admission and or procedure and has NOT been updated on calendar day of procedure please complete this update prior to performing procedure. - Update Patient reports changes in Medical Condition: No Changes in examination, assessment, or condition: No Changes in Medication: No Preop tests/diagnostics Reviewed: Yes Surgery Remains Indicated: Yes Consent for Planned Operative Procedure(s) Verified: Yes - Pre-Operative Checklist Preoperative Checklist Indicated: No Prophylactic Antibiotic Ordered: Yes Is VTE Prophylaxis Indicated?: Yes
[2018-10-31] MEDS ORDERED: Clindamycin 900 MG/50 ML 900 MG/50 ML IV.SOLN IVPB ONE (09:01)
[2018-10-31] MEDS ORDERED: Albuterol 2.5 MG/3 ML NEBULIZER IH ONE (09:01)
[2018-10-31] MEDS ORDERED: *HR* HYDROmorphone (PF) 1 MG/ML SYRINGE IVP PRN (09:09)
[2018-10-31] MEDS ORDERED: *HR* OxyCODONE Immed Rel 5 MG TABLET PO PRN (09:09)
[2018-10-31] MEDS ORDERED: Ondansetron 4 MG/2 ML VIAL IVP ONE (09:09)
[2018-10-31] MEDS ORDERED: *HR* Labetalol 20 MG/4 ML SYRINGE IVP PRN (09:09)
[2018-10-31] MEDS ORDERED: Ringers Solution, Lactated 1,000 ML IVC SCH (09:15)
[2018-10-31] MEDS ORDERED: Famotidine 20 MG/2 ML VIAL IVP ONE (09:19)
[2018-10-31] MEDS ORDERED: Acetaminophen IV 1,000 MG/100 ML INFUS..BTL IVPB ONE (09:20)
--- NOTE | 2018-10-31 09:24 | Discharge Summary ---
<Martha Salazar E - Last Filed: 10/31/18 09:17> Orders not resulted at time of discharge: Pending orders 10/31/18 01:00 XR knee RT 1-2V [XR] Routine Hemoglobin and Hematocrit [HEME] Routine Date of Encounter: 10/31/18 - Discharge Diagnosis (1) Osteoarthritis of right knee Priority: Primary Status: Chronic Qualifiers: Osteoarthritis type: unspecified Qualified Code(s): M17.11 - Unilateral primary osteoarthritis, right knee (2) Status post total knee replacement Priority: Primary Status: Acute Qualifiers: Laterality: right Qualified Code(s): Z96.651 - Presence of right artificial knee joint (3) HTN (hypertension) Priority: Secondary Status: Chronic Qualifiers: Hypertension type: unspecified Qualified Code(s): I10 - Essential (primary) hypertension (4) HLD (hyperlipidemia) Priority: Secondary Status: Chronic Qualifiers: Hyperlipidemia type: unspecified Qualified Code(s): E78.5 - Hyperlipidemia, unspecified (5) Diabetes mellitus Priority: Secondary Status: Chronic Qualifiers: Diabetes mellitus type: type 2 Diabetes mellitus watermelon inspector insulin use: with watermelon inspector use Diabetes mellitus complication status: with unspecified complications Qualified Code(s): E11.8 - Type 2 diabetes mellitus with unspecified complications; Z79.4 - long term care pharmacist (current) use of insulin (6) Chronic atrial fibrillation Priority: Secondary Status: Chronic (7) CAD (coronary artery disease) Priority: Secondary Status: Chronic Qualifiers: Coronary Disease-Associated Artery/Lesion type: unspecified vessel or lesion type [place] vs. transplanted heart: unspecified whether [place] or transplanted heart Associated angina: angina presence unspecified Qualified Code(s): I25.10 - Atherosclerotic heart disease of [place] coronary artery without angina pectoris (8) assisted current use of anticoagulant Priority: Secondary Status: Chronic (9) History of heart artery stent Priority: Secondary Status: Chronic (10) Focal seizures Priority: Secondary Status: Chronic - Hospital Course Hospital course: Ms. Rollins is a 63 year old female - Time Spent with Patient Total time spent providing and/or coordinating discharge services: - Discharge Medications Prescriptions: Aspirin Enteric Coated [Aspirin EC] 81 mg PO DAILY #30 tablet. Cyanocobalamin (B-12) [Vitamin B12] 1,000 mcg PO DAILY #30 tablet levoFLOXacin [Levaquin] 750 mg PO DAILY 2 Days #2 tablet Home Medications: Atorvastatin [Lipitor] 40 mg PO DAILY 06/22/17 [History] Amitriptyline [Elavil] 50 mg PO HS 04/18/18 [History] Cyclobenzaprine HCl 5 mg PO BID PRN 10/31/18 [History] Docusate Sodium [Colace] 100 mg PO BID 5 Days #10 capsule 10/31/18 [Rx] Ferrous Sulfate [Iron] 325 mg PO DAILY 10/31/18 [History] Gabapentin [Neurontin] 600 mg PO TID 10/31/18 [History] Insulin Glargine,Hum.rec.anlog [Basaglar Kwikpen U-100] 41 unit SQ BID 10/31/18 [History] LevETIRAcetam [Keppra] 500 mg PO BID 10/31/18 [History] Metoprolol Succinate [Toprol Xl] 75 mg PO BID 10/31/18 [History] Omeprazole [PriLOSEC] 40 mg PO DAILY 10/31/18 [History] OxyCODONE Immed Rel [Roxicodone 5 MG] 5 mg PO Q6HR PRN 7 Days #28 tablet 10/31/18 [Rx] Paroxetine HCl [Paxil] 40 mg PO DAILY 10/31/18 [History] Aspirin Enteric Coated [Aspirin EC] 81 mg PO DAILY #30 tablet. 11/04/18 [Rx] Cyanocobalamin (B-12) [Vitamin B12] 1,000 mcg PO DAILY #30 tablet 11/04/18 [Rx] Enoxaparin [Lovenox] 90 mg SQ Q12HCO 14 Days syringe 11/04/18 [Rx] levoFLOXacin [Levaquin] 750 mg PO DAILY 2 Days #2 tablet 11/04/18 [Rx] Allergies/Adverse Reactions: Allergy/AdvReac Type Severity Reaction Status Date / Time Penicillins [PCN] Allergy Hives Verified 10/31/18 09:16 rivaroxaban [From Xarelto] Allergy See Verified 10/31/18 09:16 Comments morphine AdvReac See Verified 10/31/18 09:16 Comments NSAIDS (Non-Steroidal AdvReac Palpitation Verified 10/31/18 09:16 Anti-Inflamma s Oxycodone AdvReac Confusion Verified 11/02/18 05:25 Primary care physician: Jessica Vasquez CNP - Patient Status Disposition: Transfer Inpatient Rehab Fac Condition: Good - Discharge Instructions Instructions: Total Knee Replacement (DC), Precautions after Total Joint Replacement Surgery (DC) Follow Up With: Jessica Vasquez CNP [Primary Care Provider] - <NbaMartha C - Last Filed: 11/04/18 21:28> - NOTES TO OUTPATIENT PROVIDER Notes to Outpatient Provider: Follow up on B12 levels. Needs full GI workup for anemia. Delirium needs formal evaluation with MMSE/ ADELAIDA for possible underlying dementia/sundowning. If continues to need straight cath will need urology consult. Follow up with cardiology for medication management (plavix on hold for DVT management with lovenox+aspirin) Orders not resulted at time of discharge: Pending orders 10/31/18 09:21 US anesthesia pain block [US] Routine 10/31/18 09:46 Red Blood Cells [BBK] Stat Type and Screen [BBK] Stat 11/02/18 08:31 Culture,Blood [BC] Stat Date of Encounter: 11/04/18 Time of Encounter: 12:30 - Discharge Diagnosis (1) Status post total knee replacement Priority: Primary Status: Acute Qualifiers: Laterality: right Qualified Code(s): Z96.651 - Presence of right artificial knee joint (2) Anemia Priority: Secondary Status: Acute Qualifiers: Anemia type: iron deficiency Iron deficiency anemia type: unspecified iron deficiency Qualified Code(s): D50.9 - Iron deficiency anemia, unspecified (3) Chronic deep vein thrombosis (DVT) Priority: Secondary Status: Acute Qualifiers: DVT location: lower extremity Affected thrombotic vein of extremity: popliteal Laterality: right Qualified Code(s): I82.531 - Chronic embolism and thrombosis of right popliteal vein (4) Delirium Priority: Secondary Status: Acute (5) Leukocytosis (leucocytosis) Priority: Secondary Status: Acute Qualifiers: Leukocytosis type: unspecified Qualified Code(s): D72.829 - Elevated white blood cell count, unspecified (6) Seizure Priority: Secondary Status: Acute (7) CAD (coronary artery disease) Priority: Secondary Status: Chronic Qualifiers: Coronary Disease-Associated Artery/Lesion type: unspecified vessel or lesion type [place] vs. transplanted heart: unspecified whether [place] or transplanted heart Associated angina: angina presence unspecified Qualified Code(s): I25 .10 - Atherosclerotic heart disease of [place] coronary artery without angina pectoris (8) Chronic atrial fibrillation Priority: Secondary Status: Chronic (9) Diabetes mellitus Priority: Secondary Status: Chronic Qualifiers: Diabetes mellitus type: type 2 Diabetes mellitus intermediate insulin use: with watermelon inspector use Diabetes mellitus complication status: with unspecified com plications Qualified Code(s): E11.8 - Type 2 diabetes mellitus with unspecified complications; Z79.4 - assisted (current) use of insulin (10) Focal seizures Priority: Secondary Status: Chronic (11) HLD (hyperlipidemia) Priority: Secondary Status: Chronic Qualifiers: Hyperlipidemia type: unspecified Qualified Code(s): E78.5 - Hyperlipidemia, unspecified (12) HTN (hypertension) Priority: Secondary Status: Chronic Qualifiers: Hypertension type: unspecified Qualified Code(s): I10 - Essential (primary) hypertension (13) History of heart artery stent Priority: Secondary Status: Chronic (14) assisted current use of anticoagulant Priority: Secondary Status: Chronic (15) Osteoarthritis of right knee Priority: Primary Status: Chronic Qualifiers: Osteoarthritis type: unspecified Qualified Code(s): M17.11 - Unilateral primary osteoarthritis, right knee (16) Acute blood loss as cause of postoperative anemia Priority: Secondary Status: Acute (17) Atrial fibrillation Priority: Secondary Status: Acute Qualifiers: Qualified Code(s): I48.91 - Unspecified atrial fibrillation (18) DVT (deep venous thrombosis) Priority: Secondary Status: Acute Qualifiers: DVT location: lower extremity Affected thrombotic vein of extremity: femoral Chronicity: chronic Laterality: left Qualified Code(s): I82.512 - Chronic embolism and thrombosis of left femoral vein (19) Status post total hip replacement, left Priority: Secondary Status: Acute (20) Acute depression Priority: Secondary Status: Chronic (21) CAD (coronary artery disease) Status: Chronic Qualifiers: Coronary Disease-Associated Artery/Lesion type: unspecified vessel or lesion type [place] vs. transplanted heart: [place] heart Associated angina: without angina Qualified Code(s): I25.10 - Atherosclerotic heart disease of [place] coronary artery without angina pectoris (22) Dementia Priority: Secondary Status: Chronic Qualifiers: Dementia type: unspecified type Dementia behavioral disturbance: without behavioral disturbance Qualified Code(s): F03.90 - Unspecified dementia without behavioral disturbance (23) History of pulmonary embolism Priority: Secondary Status: Chronic (24) Hypertension Priority: Secondary Status: Chronic Qualifiers: Hypertension type: essential hypertension Qualified Code(s): I10 - Essential (primary) hypertension (25) Tobacco abuse Priority: Secondary Status: Chronic (26) Type 2 diabetes mellitus Priority: Secondary Status: Chronic Qualifiers: Diabetes mellitus intermediate insulin use: unspecified intermediate insulin use status Diabetes mellitus complication status: with unspecified complications Qualified Code(s): E11.8 - Type 2 diabetes mellitus with unspecified complications - Hospital Course Hospital course: Ms. Rollins is a 63 year old female status post Right robotic-assisted Total knee replacement 10/31/[address] Delgado with history of HTN, DM, HLD, chronic afib and CAD on plavix with chronic DVT and h/o stents. focal seizures. She was found to be anemic on day of surgery with Hgb 6.4. She did receive total of 3 units RBC transfusion and Hgb improved by day of discharge to 9.1. Hospitalist was consulted for anemia work up and delirium workup. There was no source of bleeding to account for her anemia preop and hospitalist recommends full GI workup on outpatient basis. She received total of 3 RBC transufions and ferrous sulfate supplement. B12 was noted to be low, supplementation provided and recommend continued monitoring outpatient. CT of head was performed and showed n o acute abnormalities. She was noted to have previous history of delirium after surgeries as well, could be exacerbated by anesthesia. Concern for possible underlying dementia with sundowning as her confusion was worse in the evenings but she was fully alert and oriented x 3 by day of discharge. Recommend formal evaluation of this to include MMSE and MOCA. In search for possibile infection as cause for her delirium CXR was performed and she was found to have questionable bronchitis, she was started on levaquin with recommendation to complete a total of 5 day course. UA was negative for bacteria but she does have h/o urinary retention and did require several straight catheterizations. She was able to urinate on own before discharge but would recommend urology follow up if she continues to need intermittent straight caths. She was also noted to have swelling, tightness and tenderness to palpation of right calf on 11/02 and Doppler showed chronic DVT noted to right superficial femoral and right popliteal vein - lovenox dose was adjusted to weight based dosing per pharmacy. She will continue on aspirin 81mg daily dose but will hold plavix for now and recommend follow up with cardiology for further management of these medications. She was stable at time of discharge to [facility]. Patient seen at bedside, without complaints. A&O x 3 Afebrile, vital signs stable. Labs reviewed. H/H -9.1/29.6 stable, asymptomatic Pain control: adequate Participating in PT. All questions and concerns addressed. Educated on use of incentive spirometer. Encouraged ambulation and proper hydration. Patient educated on post-operative restrictions and post-operative care. Assessment and plan: Continue with postoperative care Discharge plan: [facility] today Summary of recommendations per hospitalist: She is to complete 5 day course of levaquin for probable bronchitis - will need to monitor. Will need GI work up outpatient for anemia. monitor B12 levels Will need MMSE and MOCA evaluation for possible underlying dementia/sundowning. Will need cardiology follow up for medication review. Currently on lovenox and aspirin and plavix is on hold. Continue to monitor urine output and straight cath as needed, may need urology consult if unable to void on own. - Time Spent with Patient Total time spent providing and/or coordinating discharge services: Date of admission: 11/01/18 08:09 Primary care physician: Jessica Vasquez CNP Consults: 10/31/18 13:19 Consult to Occupational Therapy [CONS] Routine Comment: Evaluate, develop and implement POC Reason for Consult: post knee surgery Does patient have active BEDREST order?: No Is patient medically & hemodynamically stable?: Yes Consult to Orthopedic Navigator [CONS] [CONS] Routine Consult to Physical Therapy [CONS] Routine Comment: Evaluate, develop and impliment POC Reason for Consult: post knee surgery Does patient have active BEDREST order?: No Is patient medically & hemodynamically stable?: Yes Consult to Assistant Controller [CONS] Routine Reason for SW Consult: post op joint replacement RT Post Op Consult [CONS] Routine 10/31/18 13:53 Consult to Hospitalist [CONS] Routine Consulting Provider: Keri Gaston Reason for Consult: anemia Time Notified: 13:45 Call Completed: Yes 10/31/18 18:59 Consult to Pastoral Services [CONS] Routine Comment: 11/02/18 12:55 Consult to Invasive Line Access Team [CONS] Routine Reason for Consult: powerglide access Line Type: EPIV Time Notified: 12:55 Call Completed: Yes Discharging clinician: Martinez Delgado Anticipated date of discharge: 11/04/18 Labs on day of discharge: Labs from last 24 hours 11/04/18 11/04/18 11/04/18 10:56 05:53 05:53 WBC 7.3 RBC 3.84 Hgb 9.1 L Hct 29.6 L MCV 77.1 L MCH 23.7 L MCHC 30.7 L RDW 19.3 H Plt Count 347 MPV 9.3 L Sodium 138 Potassium 3.4 L Chloride 101 Carbon Dioxide 26 BUN 18 Creatinine 1.00 Est GFR ( Amer) > 60 Est GFR (Non-Af Amer) 56 L BUN/Creatinine Ratio 18 Glucose 90 POC Glucose 249 H Calculated Osmolality 287 Calcium 9.2 RBC Folate Hematocrit 11/03/18 11/03/18 10/31/18 16:41 07:30 17:11 WBC RBC Hgb Hct MCV MCH MCHC RDW Plt Count MPV Sodium Potassium Chloride Carbon Dioxide BUN Creatinine Est GFR ( Amer) Est GFR (Non-Af Amer) BUN/Creatinine Ratio Glucose POC Glucose 163 H 145 H Calculated Osmolality Calcium RBC Folate 772 Hematocrit 22.2 Preliminary micro results at discharge 11/02/18 08:31 Blood Culture - Preliminary Peripheral Venipuncture Culture is incubating and being continuously monitored for growth. Final report to follow. 11/02/18 08:31 Blood Culture - Preliminary Peripheral Venipuncture Culture is incubating and being continuously mon itored for growth. Final report to follow. - Impressions ITS Impressions Knee X-Ray 10/31/18 01:00 IMPRESSION: Total knee arthropasty without acute hardware complication. D/ / Les Jalloh MD / Les Jalloh MD Interpreting Provider: Les Jalloh MD Chest X-Ray 11/01/18 11:19 IMPRESSION: 1. Reticular opacities in a perihilar distribution are favored to represent mild interstitial edema. Bronchitis can have a similar appearance. 2. Cardiomegaly. D/ / 11/01/2018 12:05:08 Heather Mejias MD / [email or web address] Interpreting Provider: Heather Mejias MD Head CT 11/01/18 19:00 IMPRESSION: No acute intracranial abnormality. D/ / Brandyn Ji / Brandyn Ji Interpreting Provider: Brandyn Ji Knee X-Ray 11/02/18 11:50 IMPRESSION: Stable right knee arthroplasty. D/ / 11/02/2018 14:08:28 Valentino Arauz MD / [facility] Interpreting Provider: Valentino Arauz MD - Patient Status Overall status at discharge: patient is progressing back to baseline - Diet and Activity Activity: as per physical therapy Diet: advance to your usual diet
--- NOTE | 2018-10-31 09:24 | Anesthesia Evaluation PreOp ---
Date of Encounter: 10/31/18 Time of Encounter: 09:20 - Past History Planned Operation: Rt TKA Cardiac History: NH, HTN, Hyperlipidemia, Cardiac Stent (Off Plavix 3 days), Other (Anemia AFib currently sinus on metoprolol) Pulmonary History: Smoker, COPD FITNESS ASSISTANT History: Denies Any Significant HX Other Medical History: Diabetes Type II (Accu check 204), GERD Anesthesia History: No Prior Anesthetic Complications : No Alcohol Use: none Drug use: none Medications and Allergies Atorvastatin [Lipitor] 40 mg PO HS 06/22/17 [History] Amitriptyline [Elavil] 50 mg PO HS 04/18/18 [History] Aspirin [Adult Aspirin Regimen] 81 mg PO DAILY 04/18/18 [History] Insulin ASPART [Novolog Flexpen] 10 unit SQ TIDWM 04/18/18 [History] Acetaminophen 650 mg PO Q6H PRN 365 Days capsule 06/03/18 [Rx] Gabapentin [Neurontin] 300 mg PO TID #0 06/03/18 [Rx] Insulin Glargine,Hum.rec.anlog [Basaglar Kwikpen U-100] 25 unit SQ DAILY #0 06/03/18 [Rx] Metoprolol Succinate [Toprol Xl] 100 mg PO QAM #0 06/03/18 [Rx] Allergy/AdvReac Type Severity Reaction Status Date / Time Penicillins [PCN] Allergy Hives Verified 10/31/18 09:16 rivaroxaban [From Xarelto] Allergy See Verified 10/31/18 09:16 Comments morphine AdvReac See Verified 10/31/18 09:16 Comments NSAIDS (Non-Steroidal AdvReac Palpitation Verified 10/31/18 09:16 Anti-Inflamma s - Meds/Allergy Pre-op Review Medications Reviewed: Yes Allergies Reviewed: Yes Beta Blockers on Current Med List: Yes (Metoprolol today 0730) Anesthesia Results - Labs Laboratory Tests 06/03/18 10/28/18 10/28/18 05:07 12:27 12:27 Hgb 7.4 L Hct 26.3 L Plt Count 433 H PT 10.6 INR 0.9 APTT 28.2 Sodium Potassium BUN Creatinine Hemoglobin A1c Iron 32 L 10/28/18 10/28/18 12:27 12:27 Hgb Hct Plt Count PT INR APTT Sodium 137 Potassium 4.6 BUN 21 Creatinine 1.18 Hemoglobin A1c 7.7 H Iron - Imaging EKG: report reviewed (SR) Additional studies: ECHO EF 60%, no puln htn, moderate 22mmhg Anesthesia Exam O2 Sat Height 1.68 m Height 1.68 m Weight 93.894 kg Weight 93.894 kg Height: 5'6 Weight: 207 lbs NPO (# of Hours): MN Pain Scale: 0 - HEENT Pupil (Motor): Pupils equal, EOMI Mallampati: III Teeth: Edentulous Oral Opening: Less than or equal to 3 - FITNESS ASSISTANT LOC: Oriented FITNESS ASSISTANT Motor: Normal RUE, Normal LUE, Normal RLE, Normal LLE, Normal Face FITNESS ASSISTANT Sensory: Normal: RUE, LUE, RLE, LLE, Face - Cardiac Rhythm: Regular Murmur: None JVD: No Carotid Bruit: No - Pulmonary Breath Sounds: bilateral Clear Respiratory Effort: Symmetrical Anesthesia Assess/Plan ASA Score: 3 (HTN CAD Anemia Tobacco DM) Level of consciousness: Cooperative Anesthetic Plan: General, Regional Nerve Block Regional Nerve Block Plan: Adductor canal, IPACK Autologous Blood: No Monitoring Plan: Standard Monitors Recovery Plan: PACU (Discussed GA, RA, transfusion, agrees to proceed)
[2018-10-31] MEDS ORDERED: *HR* Midazolam HCl 2 MG/2 ML VIAL ONE (09:54)
[2018-10-31] MEDS ORDERED: Ondansetron 4 MG/2 ML VIAL ONE (09:54)
[2018-10-31] MEDS ORDERED: *HR* Propofol 200 MG/20 ML VIAL IVP ONE (09:54)
[2018-10-31] MEDS ORDERED: Dexamethasone 4 MG/ML VIAL ONE (09:54)
[2018-10-31] MEDS ORDERED: *HR* FentaNYL (PF) 100 MCG/2 ML VIAL ONE (09:54)
[2018-10-31] MEDS ORDERED: Lidocaine -MPF 2% 2 ML VIAL ONE (09:54)
[2018-10-31] MEDS ORDERED: Ethanol\\Acetic Acid\\Na Ace\\Ben 1,000 ML IRRIG.SOLN IR ONE (10:11)
[2018-10-31] MEDS ORDERED: Tetracaine/PF 20 MG/2 ML AMPUL ONE (10:15)
[2018-10-31] MEDS ORDERED: Bupivacaine/Clonidine Syringe 1 EACH SYRINGE ONE (10:15)
[2018-10-31] MEDS ORDERED: ROPIVACAINE HCL/PF 0.5% 30 ML VIAL ONE (10:15)
[2018-10-31] MEDS ORDERED: Bupivacaine-MPF 0.25% 10 ML VIAL ONE (10:23)
--- NOTE | 2018-10-31 10:36 | Anesthesia Procedures ---
Date of Encounter: 10/31/18 Time of Encounter: 10:34 Procedures: Anesthesia - Nerve Block Procedure Date: 10/31/18 Time: 10:34 Allergies/Adv Reactions: pcn, rivaroxaban,morphine,nsaids Pre-op Diagnosis: right knee arthritis Surgical Procedure: right total knee arthroplasty Checklist: Correct Patient Identifier, Correct procedure, History checked Correct side: Right Blood Thinner: No Monitor Applied: BP, Pulse Oximetry Supplemental Oxygen via Nasal Cannula (L/min): 2 Sedation: Versed (mg): 1 Indication: Post Op Analgesia Pre-op Neuro Deficits: No Block Type: Femoral, Other (ipack, local anterior infiltration) Catheter placed: No Sterile Technique: Yes Ultrasound used: Yes Anatomy identified: Yes Visual spread of Local: Yes Blood on Needle Aspiration: No Smooth Injection of Local: Yes Pain with Injection of Local: No Prep: Chlorhexadine Needle: 21 x 100 mm Stimuplex Local: 0.25% Bupivicaine w/Clonidine 20 mcg/cc (20ml for ipack, 10ml for anterior infiltration), Tetracaine (20mg femoral), Ropivacaine (30ml ropivicaine - femoral) Volume (cc): 60 ml Number of Attempts: 1 Complications: None/effective block Vitals: Vital Signs/O2 Sat, Most Current Temp Pulse Resp BP Pulse Ox 99.6 F 80 18 110/45 94 10/31/18 09:34 10/31/18 10:34 10/31/18 09:34 10/31/18 10:34 10/31/18 10:34
[2018-10-31] MEDS ORDERED: *HR* Etomidate 40 MG/20 ML VIAL IVP ONE (10:39)
[2018-10-31] MEDS ORDERED: Tranexamic Acid 1,000 MG/10 ML VIAL ONE (10:40)
[2018-10-31] MEDS ORDERED: EPHEDrine 50 MG/ML VIAL ONE (10:41)
[2018-10-31] MEDS ORDERED: *HR* PHENYLEPHRINE 1,000 MCG/10 ML SYRINGE IVP ONE (10:42)
[2018-10-31] MEDS ORDERED: *HR* Phenylephrine 10 MG/ML VIAL ONE (10:44)
[2018-10-31] MEDS ORDERED: Albumin Human 5% 25.0 GM/500 ML VIAL ONE (11:22)
--- NOTE | 2018-10-31 11:49 | Orthopedic Operative Note ---
Date of procedure: 10/31/18 Pre-op diagnosis: Right knee arthritis Post-op diagnosis: same Procedure: Procedure: Right robotic-assisted Total knee replacement Estimated blood loss: 200 cc Hardware: Metal and polyethylene replacement. [place] Femur: 2 Tibia: 2 TS insert: 11 Patella: 36 Exam Under anesthesia: 11 degree flexion contracture 7 degree varus as calculated by the robot full flexion and no instability Procedural Notes: Grade 4 arthritic changes all 3 compartments. Operative procedure: The patient was brought to the operating room and placed on the operating room table. After general anesthesia was administered the operative knee was examined. Findings were noted in the exam under anesthesia. The operative extremity was prepped and draped in sterile surgical fashion. The patient received IV antibiotics prior to skin incision. A standard midline incision was made centered over the patella. The incision was made through the skin and subcutaneous tissue. A medial parapatellar tendon approach was performed. Care was taken to preserve tissue along the medial aspect of the patella. And to protect the patella tendon. The deep MCL was released off the medial tibia. The infra patella fat pad was excised. The patella was everted and cut was made at the level of the insertion of the quadriceps and patella tendon. The patella was sized the guide was seated and the lug holes are drilled. Knee was brought into flexion. Patient noted to have grade 4 arthritic changes all 3 compartments. Steinmann pins were placed in the tibia and the femur for the tibial and femoral arrays respectively. Checkpoints were also placed in the tibia and the femur for calculation purposes. The knee including the femur and the tibial registered. Osteophytes, ACL and PCL were excised at this point. Extension and flexion were assessed with a valgus stress components were adjusted on the computer to balance the knee. Femoral cuts were made first with robotic assistance, these included the anterior cut posterior cuts chamfer cuts. Tibial cut was then performed with robotic assistance as well. Bone fragments were removed, as well as the medial and lateral meniscus. The size 2 femoral guide was seated box cut was made lug holes are drilled. The size 2 tibial tray was seated and prepared with the fin cutter. Trial reduction with the 11 TS Carissa revealed extension of 0 degree and 5 3 varus full flexion. No varus valgus instability. Trial reduction revealed excellent patella tracking. All trial components were removed all bony surfaces were irrigated. The Tibia was seated followed by the femur, The selected Carissa size was seated and secured patella. Patient had similar findings for motion and stability. The knee was closed by the PA. The knee was then irrigated out with 2 L of pulse irrigation. The extensor mechanism was closed with #2 FiberWire suture and #2 PDS suture. The subcutaneous tissue was then irrigated and closed deep with #1 PDS suture superficially with 0 PDS suture and skin was closed with zip tie The patient was then placed in a sterile dressing and a postoperative brace extubated and transferred to recovery room in stable condition. Anesthesia: GETA Surgeon: Martinez Delgado Was there an accountant assistant present: Yes French Polisher: Dominga Rand Estimated blood loss (cc): 200 Condition: stable Disposition: PACU
[2018-10-31] MEDS ORDERED: Ipratropium/Albuterol Neb 3 ML ONE (12:26)
[2018-10-31] MEDS ORDERED: Sennosides 8.6 MG TABLET PO PRN (13:19)
[2018-10-31] MEDS ORDERED: D5% in Water 1,000 ML IVC PRN (13:19)
[2018-10-31] MEDS ORDERED: traMADol 50 MG TABLET PO PRN (13:19)
[2018-10-31] MEDS ORDERED: Ondansetron 4 MG/2 ML VIAL IVP PRN (13:19)
[2018-10-31] MEDS ORDERED: Naloxone 0.4 MG/ML INJ IVP PRN (13:19)
[2018-10-31] MEDS ORDERED: Temazepam 15 MG CAPSULE PO PRN (13:19)
[2018-10-31] MEDS ORDERED: *HR* Dextrose 50 % in Water (Syg) 50 ML SYRINGE IVP PRN (13:19)
[2018-10-31] MEDS ORDERED: Dextrose Gel 15 GM/37.5 ML TUBE PO PRN ×2 (13:19)
[2018-10-31] MEDS ORDERED: *HR* OxyCODONE/APAP 5/325 TABLET PO PRN (13:19)
[2018-10-31] MEDS ORDERED: MOM Conc 10 ML UD.LIQ PO PRN (13:19)
[2018-10-31 13:21] LABS: Hematocrit 24.1 % (35.3-44.9); Hemoglobin 6.8 g/dL (11.5-15.4)
[2018-10-31] MEDS: Insulin LISPRO 300 UNITS/3 ML VIAL SQ SCH ×3 (14:22→20:30)
[2018-10-31] MEDS: Gabapentin 300 MG CAPSULE PO SCH ×2 (14:23→20:29)
--- NOTE | 2018-10-31 15:46 | Internal Medicine Consult Note ---
Date of Encounter: 10/31/18 Time of Encounter: 15:44 - Assessment and plan (1) Anemia Current Visit: Yes Status: Acute Assessment and plan: - Preop hemoglobin of 6.8 status post 1 PRBC. Hemoglobin was normal in May around 12.3. Patient had around 200 mL of acute blood loss per surgery note. - We will obtain stat CBC, ferritin, iron panel, haptoglobin, LDH, blood smear. Patient already scheduled to receive 2 units of PRBC. Monitor H&H 2 hours after. Another 2 units and hold as well. - Patient ordered to start aspirin and Plavix tomorrow morning. No history of ongoing GI bleed. We can continue for now and monitor response to blood transfusion. - Obtain stool occult blood. - Continue iron supplementation - We will will consider hematology consult depending on the patient's response to transfusion and workup. Qualifiers: Anemia type: unspecified type Qualified Code(s): D64.9 - Anemia, unspecified (2) Status post total knee replacement Current Visit: Yes Status: Acute Assessment and plan: - Management per orthopedics - PT OT consulted - Lovenox ordered for DVT however currently on hold. Qualifiers: Laterality: right Qualified Code(s): Z96.651 - Presence of right artificial knee joint (3) CAD (coronary artery disease) Current Visit: Yes Status: Chronic Assessment and plan: - Continue home aspirin,plavix as it is unclear exactly when was her last stent. We will consider stopping if patient has significant bleeding. - c/w statin and beta man. - Monitor on telemetry Qualifiers: Coronary Disease-Associated Artery/Lesion type: unspecified vessel or lesion type [place] vs. transplanted heart: unspecified whether [place] or transplanted heart Associated angina: angina presence unspecified Qualified Code(s): I25.10 - Atherosclerotic heart disease of [place] coronary artery without angina pectoris (4) Chronic atrial fibrillation Current Visit: Yes Status: Chronic Assessment and plan: - Currently rate controlled with metoprolol - Monitor on telemetry - Not on anticoagulation because of previous bleeding history. (5) Diabetes mellitus Current Visit: Yes Status: Chronic Assessment and plan: -Continue Levemir, sliding scale insulin and Accu-Cheks. Qualifiers: Diabetes mellitus type: type 2 Diabetes mellitus alf insulin use: with computer terminal operator use Diabetes mellitus complication status: with unspecified complications Qualified Code(s): E11.8 - Type 2 diabetes mellitus with unspecified complications; Z79.4 - [facility] (current) use of insulin (6) HTN (hypertension) Current Visit: Yes Status: Chronic Assessment and plan: - Continue home metoprolol Qualifiers: Hypertension type: unspecified Qualified Code(s): I10 - Essential (primary) hypertension - Time Spent With Patient Total time spent is greater than 50% in coordination of care (as documented) at patient's floor/unit and/or counseling patient: Internal Medicine - CN: HPI - Data of Consult Requesting Physician: Martinez Delgado MD - Consult Narrative Reason for consult: anemia History of present illness: Ms. Rollins is a 63 year old female with past medical history of hypertension, hyperlipidemia, coronary artery disease status post multiple stents, iron deficiency anemia, diabetes, atrial fibrillation, DVT and PE and breast cancer history, large hiatal hernia was admitted for right knee total replacement surgery. On interview patient is drowsy, but arousable and oriented however not able to provide good history. Most history obtained from previous charts. On review of patient's home medication patient is currently on aspirin and Plavix for coronary artery disease. She has previous history of DVT and PE. Unclear exact timing. She also has a history of A. fib not on anticoagulation currently, likely with previous history of GI bleed. She has past history of iron d eficiency anemia. On previous admissions for surgery she also had received multiple blood transfusions. Consult was obtained for postop anemia. Patient had a right robotic-assisted total knee replacement surgery with estimated blood loss around 200. Patient's preoperative hemoglobin was 6.8 and she did received a blood transfusion unit after Hb was 6.4 however unclear time between finishing transfusion and hemoglobin checked. Patient currently denying any chest pain, shortness of breath or any significant pain anywhere. Has not had any bowel movements yet. Still drowsy after surgery. She is saturating well on 2 L nasal cannula. Patient is scheduled to receive 2 more blood transfusions. Past Med Surg Social Fam HX - Past Medical History Source: unable to obtain, old records reviewed, nursing notes reviewed Medical history: arthritis, cancer, CHF, COPD, coronary artery disease, DVT, diabetes, GERD, hyperlipidemia, hypertension, myocardial infarction Additional medical history: MRSA Pneumonia d/c 06/25/[address] [facility] Psychiatric history: anxiety, depression - Past Surgical History Surgical History: angioplasty/stent, breast surgery, , hip replacement Additional surgical history: rt eye, l hip replacement - Social History Smoking Status: Unknown if ever smoked Packs per day: 0.5ppd Smokeless Tobacco Status: No Alcohol use: none Drug use: none ROS unobtainable: due to mental status Internal Medicine - CN: Meds Atorvastatin [Lipitor] 40 mg PO DAILY 06/22/17 [History] Amitriptyline [Elavil] 50 mg PO HS 04/18/18 [History] Aspirin 325 mg PO DAILY 10/31/18 [History] Aspirin Enteric Coated [Aspirin EC] 325 mg PO BID 10 Days #20 tablet. 10/31/18 [Rx] Clopidogrel [Plavix] 75 mg PO DAILY 10/31/18 [History] Cyclobenzaprine HCl 5 mg PO BID PRN 10/31/18 [History] Docusate Sodium [Colace] 100 mg PO BID 5 Days #10 capsule 10/31/18 [Rx] Ferrous Sulfate [Iron] 325 mg PO DAILY 10/31/18 [History] Gabapentin [Neurontin] 600 mg PO TID 10/31/18 [History] Insulin Glargine,Hum.rec.anlog [Basaglar Kwikpen U-100] 41 unit SQ BID 10/31/18 [History] LevETIRAcetam [Keppra] 500 mg PO BID 10/31/18 [History] Metoprolol Succinate [Toprol Xl] 75 mg PO BID 10/31/18 [History] Omeprazole [PriLOSEC] 40 mg PO DAILY 10/31/18 [History] OxyCODONE Immed Rel [Roxicodone 5 MG] 5 mg PO Q6HR PRN 7 Days #28 tablet 10/31/18 [Rx] Paroxetine HCl [Paxil] 40 mg PO DAILY 10/31/18 [History] Allergy/AdvReac Type Severity Reaction Status Date / Time Penicillins [PCN] Allergy Hives Verified 10/31/18 09:16 rivaroxaban [From Xarelto] Allergy See Verified 10/31/18 09:16 Comments morphine AdvReac See Verified 10/31/18 09:16 Comments NSAIDS (Non-Steroidal AdvReac Palpitation Verified 10/31/18 09:16 Anti-Inflamma s Hospitalist - CN: Exam - Constitutional Vitals: Temp Pulse Resp BP Pulse Ox 98.2 F 61 16 128/76 99 10/31/18 15:15 10/31/18 15:15 10/31/18 15:15 10/31/18 15:15 10/31/18 15:15 Exam: Constitutional: Vitals as noted. drowsy. No Apparent Distress. Obese Eyes : Sclera white, conjunctiva clear, no lid lag, PEARLA. ENT : Grossly normal hearing. Oropharyngeal exam unremarkable. Moist mucus membranes. No JVD, no cervical lymphadenopathy. no thyromegaly or mass. Respiratory : Transmitted upper respiratory secretory sound on all lung field. No accessory muscle use, rales, rhonchi or wheezes Cardiovascular : RRR, +S1, +S2. no murmur, gallop, rubs. No chest wall tenderness GI/Abdominal : Soft, Non-tender, Non-distended, normal bowel sounds, soft, no peritoneal signs. no orgenomegaly or mass appreciated. no hernia. Musculoskeletal: Rt LE with thigh high brace. Pulse palpable bilateraly. No pedal edema noted. no calf tenderness on Lt Neurological: AO X2, CN II-XII grossly intact, grossly normal motor and sensory exam. Skin: No skin rash, lesions or ulcers noted. Internal Medicine - CN: Reslt - Labs CBC & Chem 7: 10/31/18 12:37 Labs: Short CBC 10/31/18 Range/Units 12:37 Hgb 6.8 L (11.5-15.4) g/dL Hct 24.1 L (35.3-44.9) % - Impressions Impressions Knee X-Ray 10/31/18 01:00 IMPRESSION: Total knee arthropasty without acute hardware complication. D/ / Les Jalloh MD / Les Jalloh MD Interpreting Provider: Les Jalloh MD Consult Discharge Plan - Plan Referrals: Jessica Vasquez, SALES ATTENDANT [Primary Care Provider] - Prescriptions: OxyCODONE Immed Rel [Roxicodone 5 MG] 5 mg PO Q6HR PRN 7 Days #28 tablet PRN Reason: Severe Pain Aspirin Enteric Coated [Aspirin EC] 325 mg PO BID 10 Days #20 tablet. Docusate Sodium [Colace] 100 mg PO BID 5 Days #10 capsule
[2018-10-31] MEDS: Clindamycin 900 MG/50 ML 900 MG/50 ML IV.SOLN IVPB SCH (16:27)
[2018-10-31 17:19] LABS: Prothrombin Time 11.2 Seconds (9.4-12.1)
[2018-10-31 17:22] LABS: Hematocrit 22.2 % (35.3-44.9); Hemoglobin 6.4 g/dL (11.5-15.4); Mean Corpuscular HGB Conc 28.8 g/dL (31.6-35.5); Mean Corpuscular Hemoglobin 22.5 pg (28.0-33.3); Mean Corpuscular Volume 77.9 fL (83.0-100.0); Mean Platelet Volume 9.3 fL (9.4-12.4); Nucleated Red Blood Cells 0.2 /100 WBC (0); Platelet Count 371 K/mcL (140-400); Red Blood Count 2.85 M/mcL (3.82-4.97); Red Cell Distribution Width 16.9 % (11.5-14.5)
[2018-10-31] MEDS: Ringers Solution, Lactated 1,000 ML IVC SCH (17:44)
[2018-10-31 17:50] LABS: Ferritin < 8 ng/mL (10-120); Iron < 10 mcg/dL (50-170); Transferrin 253 mg/dL (203-362)
[2018-10-31] MEDS ORDERED: *HR* Enoxaparin 30 MG/0.3 ML SYRINGE SQ SCH (18:00)
[2018-10-31 18:04] LABS: Eosinophils # 0.7 K/mcL (0.0-0.6); Monocytes # 0.9 K/mcL (0.0-1.3); Neutrophils # 7.4 K/mcL (1.6-8.9)
[2018-10-31 18:05] LABS: Anisocytosis 1+ (Not Present); Hypochromasia Present (Not Present); Platelet Estimate Normal (Normal)
[2018-10-31 18:09] LABS: Folate 15.9 ng/mL (3.0-16.0)
[2018-10-31] MEDS ORDERED: 0.9 % Sodium Chloride 250 ML ONE (19:32)
[2018-10-31] MEDS: *HR* OxyCODONE Immed Rel 5 MG TABLET PO PRN (20:29)
[2018-10-31] MEDS: Metoprolol XL (24 HR) Succ 50 MG TAB.ER.24H PO SCH (20:29)
[2018-10-31] MEDS: levETIRAcetam 250 MG TABLET PO SCH (20:29)
[2018-10-31] MEDS: Insulin DETEMIR 100 UNIT/ML X5UNITS SQ SCH (20:30)
[2018-11-01] MEDS ORDERED: 0.9 % Sodium Chloride 250 ML ONE (00:35)
[2018-11-01] MEDS: Clindamycin 900 MG/50 ML 900 MG/50 ML IV.SOLN IVPB SCH (01:44)
[2018-11-01] MEDS ORDERED: Furosemide 20 MG/2 ML VIAL IVP PRN (04:52)
--- NOTE | 2018-11-01 06:34 | Orthopedics Progress Note ---
Date of Encounter: 11/01/18 Time of Encounter: 06:34 Subjective Interval history: Patient was seen this morning doing well without complaints. Afebrile vital signs stable. Operative extremity: Neurovascularly intact Dressing clean dry and intact Calves nontender Assessment and plan: Continue with postoperative care CBC pending, patient with multiple active medical problems unsafe to be discharged home will require extended-care facility. Conversion to inpatient status. Objective Vital signs: Vital Signs Temp Pulse Resp BP Pulse Ox 11/01/18 04:24 100.8 F H 86 17 164/92 92 11/01/18 04:22 100.8 F H 86 16 164/92 95 11/01/18 04:16 100.8 F H 86 16 164/92 92 11/01/18 01:37 98.9 F 79 16 128/70 9 11/01/18 01:26 99 F 93 14 130/73 99 10/31/18 23:13 98.6 F 79 16 147/74 99 10/31/18 23:00 98.9 F 75 16 160/79 95 10/31/18 20:13 98.6 F 74 16 147/47 97 10/31/18 19:50 98.9 F 72 16 134/71 98 10/31/18 19:13 98.8 F 72 17 127/65 98 10/31/18 16:37 98.1 F 71 16 134/79 97 10/31/18 15:15 98.2 F 61 16 128/76 99 10/31/18 14:20 98.1 F 63 17 123/69 95 10/31/18 13:50 98.1 F 64 12 115/68 95 10/31/18 13:19 94 10/31/18 13:08 98.2 F 77 14 137/88 95 10/31/18 12:58 70 14 151/66 95 10/31/18 12:48 98.2 F 71 14 142/71 100 10/31/18 12:38 72 12 157/88 100 10/31/18 12:28 72 12 122/85 100 10/31/18 12:18 98.1 F 68 14 127/65 99 10/31/18 10:34 80 110/45 94 10/31/18 09:34 99.6 F 76 18 108/58 91 Intake and Output 10/31/18 10/31/18 11/01/18 15:59 23:59 07:59 Intake Total 600 / 600 450 / 450 Output Total 200 / 200 350 / 350 Balance -200 / -200 250 / 250 450 / 450 Intake: IV Fluids 50 / 50 Cleocin Premix 900 MG/50 ML 900 50 / 50 mg In 50 ml @ 50 mls/hr IVPB Q8HR [facility] Rx#:[id number] Oral 200 / 200 100 / 100 Blood Product 350 / 350 350 / 350 Rbcs Leuko Poor As-1 Unit 350 / 350 [id number] Rbcs Leuko Poor As-1 Unit 350 / 350 [id number] Output: Urine 350 / 350 Estimated Blood Loss 200 / 200 Other: Weight 93.894 kg 93.895 kg Blood Glucose* 175 164 Patient Weight 11/01/18 23:59 Weight 93.895 kg - Labs CBC & BMP: 10/31/18 16:46 Labs: Abnormal lab results RBC 2.85 M/mcL (3.82-4.97) L 10/31/18 16:46 Hgb 6.4 g/dL (11.5-15.4) L 10/31/18 16:46 POC Hgb 6.4 g/dL (12.0-16.0) L 10/31/18 09:30 Hct 22.2 % (35.3-44.9) L 10/31/18 16:46 MCV 77.9 fL (83.0-100.0) L 10/31/18 16:46 MCH 22.5 pg (28.0-33.3) L 10/31/18 16:46 MCHC 28.8 g/dL (31.6-35.5) L 10/31/18 16:46 RDW 16.9 % (11.5-14.5) H 10/31/18 16:46 MPV 9.3 fL (9.4-12.4) L 10/31/18 16:46 Eosinophils # 0.7 K/mcL (0.0-0.6) H 10/31/18 16:46 Nucleated RBCs/100 WBC 0.2 /100 WBC (0) H 10/31/18 16:46 Hypochromasia Present (Not Present) A 10/31/18 16:46 Anisocytosis 1+ (Not Present) A 10/31/18 16:46 POC Glucose 209 mg/dL (70-99) H 10/31/18 09:13 Iron < 10 mcg/dL (50-170) L 10/31/18 16:46 Ferritin < 8 ng/mL (10-120) L 10/31/18 16:46 Consult Discharge Plan - Plan Referrals: Jessica Vasquez, NICOLETTE [Primary Care Provider] - Prescriptions: Aspirin Enteric Coated [Aspirin EC] 325 mg PO BID 10 Days #20 tablet. Docusate Sodium [Colace] 100 mg PO BID 5 Days #10 capsule OxyCODONE Immed Rel [Roxicodone 5 MG] 5 mg PO Q6HR PRN 7 Days #28 tablet PRN Reason: Severe Pain
[2018-11-01 07:04] LABS: BUN/Creatinine Ratio 17 (6-26); Blood Urea Nitrogen 16 mg/dL (8-23); Calcium 9.1 mg/dL (8.6-10.3); Carbon Dioxide 24 mEq/L (23-29); Chloride 104 mEq/L (98-107); Glucose 192 mg/dL (70-105); Osmolality,Calculated 286 (280-300); Potassium 4.6 mEq/L (3.5-5.1); Sodium 135 mEq/L (136-145); eGFR For Non-African Americans 60 (> 60)
[2018-11-01] MEDS: *HR* OxyCODONE Immed Rel 5 MG TABLET PO PRN (07:33)
[2018-11-01] MEDS: *HR* Enoxaparin 30 MG/0.3 ML SYRINGE SQ SCH (07:34)
[2018-11-01] MEDS: Gabapentin 300 MG CAPSULE PO SCH ×2 (10:22→15:37)
[2018-11-01] MEDS: Insulin LISPRO 300 UNITS/3 ML VIAL SQ SCH ×4 (10:26→20:43)
[2018-11-01] MEDS: levETIRAcetam 250 MG TABLET PO SCH ×3 (10:27→20:12)
[2018-11-01] MEDS: Aspirin 325 MG TABLET PO SCH (10:27)
[2018-11-01] MEDS: Metoprolol XL (24 HR) Succ 50 MG TAB.ER.24H PO SCH (10:28)
[2018-11-01] MEDS: Insulin DETEMIR 100 UNIT/ML X5UNITS SQ SCH ×2 (11:45→20:42)
--- NOTE | 2018-11-01 11:49 | Event Note ---
Date of Encounter: 11/01/18 Time of Encounter: 11:49 POD#1 Date of procedure: 10/31/18 Pre-op diagnosis: Right knee arthritis Post-op diagnosis: same Procedure: Procedure: Right robotic-assisted Total knee replacement Patient able to be aroused however very uncooperative re: exam. Patient states she does not wish to open her eyes, move her leg, and that "You don't need to do anything to me; I don't want to" Patient is oriented to person only Incision c/d/i No calf tenderness, erythema, or warmth Neurovascularly intact to b/l LE CXR today shows: XR/XR chest 1V portable IMPRESSION: 1. Reticular opacities in a perihilar distribution are favored to represent mild interstitial edema. Bronchitis can have a similar appearance. 2. Cardiomegaly. D/ / 11/01/2018 12:05:08 Heather Meijas MD / laurie - Hospitalist has added Furosemide and d/c IV fluids - appreciate their assistance in management of this patient. Concern for CHF exacerbation in addition to anemia of unknown origin -Plavix, ASA, and Lovenox resumed today -Hgb has appeared to stabilize -Patient unable to take PO meds secondary to confusion and hypersomnolence - secondary to patient's chronic AFib - s/w pharmacy and decreased patient's beta man secondary to low normotensive BPs and converted to IVP for the next 24 hours. Will continue to monitor to continue if patient continues to be unsafe to take PO meds. In addition patient did not receive morning Keppra dosing secondary to this same problem. Encouraged nursing to administer as soon as patient becomes safe to take PO meds. -All medications with risk of increased somnolence/confusion held in effort to improve patient's mentation --- patient noted to receive 10mg Oxycodone last night and this morning - will d/c temporarily secondary to the somnolence/co nfusion. -Encouraged nursing to provide extra safety including padding bed rails and frequent monitoring of patient -Keep HOB elevated -Continue PT/OT -ECF plan - needs to be more medically stable before discharge. -Will continue to discuss with hospitalist team - again, appreciate their input. Vital Signs Temp Pulse Resp BP Pulse Ox 12/04/18 15:58 98.2 F 84 17 141/69 93 11/01/18 12:23 98.5 F 81 16 154/81 96 11/01/18 10:42 99.5 F 80 18 146/72 95 11/01/18 10:01 80 18 135/72 94 11/01/18 06:36 99.3 F 81 16 92 11/01/18 04:24 100.8 F H 86 17 164/92 92 11/01/18 04:22 100.8 F H 86 16 164/92 95 11/01/18 04:16 100.8 F H 86 16 164/92 92 11/01/18 01:37 98.9 F 79 16 128/70 9 11/01/18 01:26 99 F 93 14 130/73 99 10/31/18 23:13 98.6 F 79 16 147/74 99 10/31/18 23:00 98.9 F 75 16 160/79 95 10/31/18 20:13 98.6 F 74 16 147/47 97 10/31/18 19:50 98.9 F 72 16 134/71 98 10/31/18 19:13 98.8 F 72 17 127/65 98 Intake and Output 11/01/18 11/01/18 11/01/18 07:59 15:59 23:59 Intake Total 450 / 450 110 / 110 Output Total 300 / 300 Balance 150 / 150 110 / 110 Intake: Oral 100 / 100 110 / 110 Blood Product 350 / 350 Rbcs Leuko Poor As-1 Unit 350 / 350 [id number] Output: Urine 300 / 300 Other: Meal Breakfast Percent of Meal Consumed 25% Weight 93.895 kg Blood Glucose* 202 175 138 Patient Weight 11/01/18 23:59 Weight 93.895 kg Short CBC 11/01/18 11/01/18 10/31/18 Range/Units 15:52 06:31 16:46 WBC 12.1 H 10.9 D (4.3-11.1) K/mcL Hgb 9.7 L 9.0 L D 6.4 L (11.5-15.4) g/dL Hct 31.1 L 29.0 L 22.2 L (35.3-44.9) % Plt Count 347 371 (140-400) K/mcL Neutrophils # 7.4 (1.6-8.9) K/mcL BMP 11/01/18 Range/Units 06:31 Sodium 135 L (136-145) mEq/L Potassium 4.6 (3.5-5.1) mEq/L Chloride 104 (98-107) mEq/L Carbon Dioxide 24 (23-29) mEq/L BUN 16 (8-23) mg/dL Creatinine 0.95 (0.60-1.20) mg/dL Glucose 192 H (70-105) mg/dL Calcium 9.1 (8.6-10.3) mg/dL
[2018-11-01] MEDS ORDERED: Ipratropium/Albuterol Neb 3 ML IH PRN (13:08)
--- NOTE | 2018-11-01 13:16 | Internal Med Progress Note ---
Hospitalist Progress Note - Encounter Date of Encounter: 11/01/18 Time of Encounter: 13:12 - Subjective Interval History: I have seen and evaluated the patient at bedside. she reports having pain at the surgical site and having generalized weakness. denies shortness of breath, nausea or vomiting. - Exam Vitals: Temp Pulse Resp BP Pulse Ox 98.5 F 81 16 154/81 96 11/01/18 12:23 11/01/18 12:23 11/01/18 12:23 11/01/18 12:23 11/01/18 12:23 Exam: Vitals: Reviewed. General: Alert and oriented x2. In mild distress due to pain Skin: Normal color, no rash, no lesions. HEENT: EOM, pupils equal, round and reactive. Cardiovascular: RRR, Normal S1 & S2, no rubs, murmurs or gallops. Lungs: rales and basillary crackles, no wheezes. Abdomen: Obese, Soft, non-tender, no rigidity. Extremities: edema at the right knee Neurological: Normal cognition. Rest of the physical exam is non contributory - Assessment and Plan (1) Anemia Current Visit: Yes Status: Acute Assessment and Plan: Patient s/p 3 PRBCs. H&H stable post transfusion. possible acute blood lost anemia Will repeat cbc this afternoon Continue his ferrous sulfate 325 by mouth daily. (2) Status post total knee replacement Current Visit: Yes Status: Acute Assessment and Plan: PT/OT. On Tylenol with codeine #3 one tab Q6HR PRN (3) HTN (hypertension) Current Visit: Yes Status: Chronic Assessment and Plan: BP has been well controlled. patient is on metoprolol 75mg/PO BID, started on furosemide 20mg/PO daily, mild crackles at the bases b/l. discontinue IV fluids (4) Diabetes mellitus Current Visit: Yes Status: Chronic Assessment and Plan: Blood sugar has been well controlled. Patient is on a carb controlled diet. On at least controlled medium dose sliding scale before meals. Plus Levemir 41 unit twice a day. (5) Chronic atrial fibrillation Current Visit: Yes Status: Chronic Assessment and Plan: Rate controlled on metoprolol 75 mg by mouth twice a day. not on full dose of the coagulation due to high risk of fall. (6) CAD (coronary artery disease) Current Visit: Yes Status: Chronic Assessment and Plan: Continue dual antiplatelet therapy. Patient on aspirin 325 mg by mouth daily and atorvastatin 40 mg by mouth at bedtime. DVT Prophylaxis: On aspirin 325 by mouth daily per orthopedic recommendations. Hold Lovenox, due to anemia requiring blood transfusion. Pending FOBT results. - Summary of Assessment and Plan Summary of Assessment and Plan: Patient to remain in the hospital pending insurance authorization for placement to ECF/SNF. potential discharge Wednesday - Time Spent with Patient Total time spent is greater than 50% in coordination of care (as documented) at patient's floor/unit and/or counseling patient: Greater than 35 minutes (40) Plan of Care Discussed with: nurse Internal Medicine: Result - Labs CBC & Chem 7: 11/01/18 06:31 11/01/18 06:31 Labs: Short CBC 10/31/18 10/31/18 11/01/18 Range/Units 12:37 16:46 06:31 WBC 10.9 D (4.3-11.1) K/mcL Hgb 6.8 L 6.4 L 9.0 L D (11.5-15.4) g/dL Hct 24.1 L 22.2 L 29.0 L (35.3-44.9) % Plt Count 371 (140-400) K/mcL Neutrophils # 7.4 (1.6-8.9) K/mcL BMP 11/01/18 06:31 Sodium 135 L Potassium 4.6 Chloride 104 Carbon Dioxide 24 BUN 16 Creatinine 0.95 Glucose 192 H Calcium 9.1 - ABG Interpretation ABG results: PT/INR, D-dimer PT 11.2 Seconds (9.4-12.1) 10/31/18 16:46 - Impressions Impressions Knee X-Ray 10/31/18 01:00 IMPRESSION: Total knee arthropasty without acute hardware complication. D/ / Les Jalloh MD / Les Jalloh MD Interpreting Provider: Les Jalloh MD Chest X-Ray 11/01/18 11:19 IMPRESSION: 1. Reticular opacities in a perihilar distribution are favored to represent mild interstitial edema. Bronchitis can have a similar appearance. 2. Cardiomegaly. D/ / 11/01/2018 12:05:08 Heather Mejias MD / laurie Interpreting Provider: Heather Mejias MD Consult Discharge Plan - Plan Referrals: Jessica Vasquez CNP [Primary Care Provider] - _ (1) Anemia Qualifiers: Anemia type: unspecified type Qualified Code(s): D64.9 - Anemia, unspecified (2) Status post total knee replacement Qualifiers: Laterality: right Qualified Code(s): Z96.651 - Presence of right artificial knee joint (3) HTN (hypertension) Qualifiers: Hypertension type: unspecified Qualified Code(s): I10 - Essential (primary) hypertension (4) Diabetes mellitus Qualifiers: Diabetes mellitus type: type 2 Diabetes mellitus skilled nursing insulin use: with skilled nursing use Diabetes mellitus complication status: with unspecified complications Qualified Code(s): E11.8 - Type 2 diabetes mellitus with unspecified complications; 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 transplanted heart: unspecified whether [place] or transplanted heart Associated angina: angina presence unspecified Qualified Code(s): I25.10 - Atherosclerotic heart disease of [place] coronary artery without angina pectoris
[2018-11-01] MEDS: *HR* Metoprolol 5 MG/5 ML VIAL IVP SCH ×3 (15:37→23:41)
[2018-11-01 16:07] LABS: Hematocrit 31.1 % (35.3-44.9); Hemoglobin 9.7 g/dL (11.5-15.4); Mean Corpuscular HGB Conc 31.2 g/dL (31.6-35.5); Mean Corpuscular Hemoglobin 24.3 pg (28.0-33.3); Mean Corpuscular Volume 77.8 fL (83.0-100.0); Mean Platelet Volume 9.2 fL (9.4-12.4); Platelet Count 347 K/mcL (140-400); Red Cell Distribution Width 17.3 % (11.5-14.5)
[2018-11-01] MEDS ORDERED: Levofloxacin 750 MG/150 ML 750 MG/150 ML BAG IVPB SCH (18:00)
--- NOTE | 2018-11-01 18:01 | Event Note ---
Date of Encounter: 11/01/18 Time of Encounter: 17:59 Called about patient change in mental status. discontinue gabapentin head CT ABG st will start patient eppirically on antibiotics leukocitosis possible bronchitis on chest r/o r/o UTI. will continue to follow. caution needed with pain medications haldo 0.5mg/IV for agitation.
[2018-11-01 18:44] LABS: ABG Base Excess 5 mEq/L (-2 to 3); ABG HCO3 31 mEq/L (21-27); ABG Oxygen Saturation 55 % (95-98); ABG PCO2 52 mmHg (35-45); ABG PH 7.39 pH Units (7.32-7.45); ABG PO2 30 mmHg (85-104); ABG TCO2 33 mEq/L (20-26)
[2018-11-02] MEDS: Levofloxacin 750 MG/150 ML 750 MG/150 ML BAG IVPB SCH ×2 (00:25→23:32)
[2018-11-02 05:15] LABS: Basophils % 0.3 %; Eosinophils # 0.1 K/mcL (0.0-0.6); Eosinophils % 0.6 %; Hematocrit 29.6 % (35.3-44.9); Hemoglobin 9.3 g/dL (11.5-15.4); Immature Granulocytes % 0.6 % (0-4); Lymphocytes # 1.5 K/mcL (0.6-4.6); Lymphocytes % 12.1 %; Mean Corpuscular HGB Conc 31.4 g/dL (31.6-35.5); Mean Corpuscular Hemoglobin 23.9 pg (28.0-33.3); Mean Corpuscular Volume 76.1 fL (83.0-100.0); Mean Platelet Volume 9.2 fL (9.4-12.4); Monocytes # 1.3 K/mcL (0.0-1.3); Monocytes % 10.4 %; Neutrophils # 9.1 K/mcL (1.6-8.9); Nucleated Red Blood Cells 0.2 /100 WBC (0); Platelet Count 350 K/mcL (140-400); Red Blood Count 3.89 M/mcL (3.82-4.97); Red Cell Distribution Width 17.9 % (11.5-14.5)
[2018-11-02 05:32] LABS: BUN/Creatinine Ratio 14 (6-26); Blood Urea Nitrogen 10 mg/dL (8-23); Calcium 9.4 mg/dL (8.6-10.3); Carbon Dioxide 25 mEq/L (23-29); Chloride 99 mEq/L (98-107); Glucose 93 mg/dL (70-105); Osmolality,Calculated 275 (280-300); Potassium 3.6 mEq/L (3.5-5.1); Sodium 133 mEq/L (136-145); eGFR For Non-African Americans > 60 (> 60)
[2018-11-02 05:34] LABS: Magnesium 1.5 mg/dL (1.6-2.6); Phosphorous 2.4 mg/dL (2.7-4.5)
[2018-11-02] MEDS: Aspirin 325 MG TABLET PO SCH (08:02)
[2018-11-02] MEDS: *HR* Metoprolol 5 MG/5 ML VIAL IVP SCH (08:02)
[2018-11-02] MEDS: Furosemide 20 MG/2 ML VIAL IVP SCH (08:02)
[2018-11-02] MEDS: Insulin LISPRO 300 UNITS/3 ML VIAL SQ SCH ×4 (08:03→20:28)
[2018-11-02] MEDS: levETIRAcetam 250 MG TABLET PO SCH ×2 (08:03→20:01)
[2018-11-02] MEDS: *HR* Acetaminophen w/Cod 300-30 mg 1 TAB TABLET PO PRN ×2 (08:03→14:13)
[2018-11-02] MEDS: Insulin DETEMIR 100 UNIT/ML X5UNITS SQ SCH ×2 (08:03→21:27)
[2018-11-02 08:19] LABS: ABG Base Excess 3 mEq/L (-2 to 3); ABG HCO3 26 mEq/L (21-27); ABG Oxygen Saturation 96 % (95-98); ABG PCO2 32 mmHg (35-45); ABG PH 7.52 pH Units (7.32-7.45); ABG PO2 74 mmHg (85-104); ABG TCO2 27 mEq/L (20-26)
--- NOTE | 2018-11-02 08:21 | Orthopedics Progress Note ---
Date of Encounter: 11/02/18 Time of Encounter: 08:20 Subjective Interval history: Patient was seen this morning still with confusion Afebrile vital signs stable. Operative extremity: Neurovascularly intact Dressing clean dry and intact Calves nontender Assessment and plan: Continue with postoperative care Hematocrit 29, stable continue to monitor mental status Objective Vital signs: Vital Signs Temp Pulse Resp BP Pulse Ox 11/02/18 06:40 100.1 F H 96 18 188/81 94 11/02/18 04:49 99.0 F 93 17 170/83 94 11/01/18 23:49 99.4 F 94 18 174/86 91 11/01/18 18:37 99.6 F 88 17 172/85 96 11/01/18 15:58 98.2 F 84 17 141/69 93 11/01/18 12:23 98.5 F 81 16 154/81 96 11/01/18 10:42 99.5 F 80 18 146/72 95 11/01/18 10:01 80 18 135/72 94 Intake and Output 11/01/18 11/02/18 11/02/18 23:59 07:59 15:59 Intake Total 150 / 150 Balance 150 / 150 Intake: IV Fluids 150 / 150 Levaquin Premix 750mg/150 mL 150 / 150 750 mg In 150 ml @ 100 mls/hr IVPB Q24H ANGELICA Rx#:[id number] Other: Percent of Meal Consumed 0% # Voids 1 # Urine Diapers 1 Weight 93.897 kg Blood Glucose* 102 107 Patient Weight 11/02/18 23:59 Weight 93.897 kg - Labs CBC & BMP: 11/02/18 04:54 11/02/18 04:54 Labs: Abnormal lab results WBC 12.0 K/mcL (4.3-11.1) H 11/02/18 04:54 Hgb 9.3 g/dL (11.5-15.4) L 11/02/18 04:54 POC Hgb 6.4 g/dL (12.0-16.0) L 10/31/18 09:30 Hct 29.6 % (35.3-44.9) L 11/02/18 04:54 MCV 76.1 fL (83.0-100.0) L 11/02/18 04:54 MCH 23.9 pg (28.0-33.3) L 11/02/18 04:54 MCHC 31.4 g/dL (31.6-35.5) L 11/02/18 04:54 RDW 17.9 % (11.5-14.5) H 11/02/18 04:54 MPV 9.2 fL (9.4-12.4) L 11/02/18 04:54 Neutrophils # 9.1 K/mcL (1.6-8.9) H 11/02/18 04:54 Nucleated RBCs/100 WBC 0.2 /100 WBC (0) H 11/02/18 04:54 Hypochromasia Present (Not Present) A 10/31/18 16:46 Anisocytosis 1+ (Not Present) A 10/31/18 16:46 ABG pH 7.52 pH Units (7.32-7.45) H 11/02/18 08:15 ABG pCO2 32 mmHg (35-45) L 11/02/18 08:15 ABG pO2 74 mmHg (85-104) L 11/02/18 08:15 ABG Total CO2 27 mEq/L (20-26) H 11/02/18 08:15 Sodium 133 mEq/L (136-145) L 11/02/18 04:54 POC Glucose 138 mg/dL (70-99) H 11/01/18 16:04 Calculated Osmolality 275 (280-300) L 11/02/18 04:54 Phosphorus 2.4 mg/dL (2.7-4.5) L 11/02/18 04:54 Magnesium 1.5 mg/dL (1.6-2.6) L 11/02/18 04:54 Iron < 10 mcg/dL (50-170) L 10/31/18 16:46 Ferritin < 8 ng/mL (10-120) L 10/31/18 16:46 Consult Discharge Plan - Plan Referrals: Jessica Vasquez, NICOLETTE [Primary Care Provider] -
--- NOTE | 2018-11-02 12:42 | Internal Med Progress Note ---
Hospitalist Progress Note - Encounter Date of Encounter: 11/02/18 Time of Encounter: 12:39 - Subjective Interval History: I have seen and evaluated the patient at bedside. Patient only oriented to person, reports pain on her right knee. denies shortness of breath or difficulty breathing. denies chest pain. - Exam Vitals: Temp Pulse Resp BP Pulse Ox 98.4 F 99 20 138/81 98 11/02/18 11:54 11/02/18 11:54 11/02/18 11:54 11/02/18 11:54 11/02/18 11:54 Exam: Vitals: Reviewed. General: Alert and oriented x1. In mild distress due to pain on her right knee. Skin: Normal color, no rash, no lesions. Cardiovascular: RRR, Normal S1 & S2, no rubs, murmurs or gallops. Lungs: CTA b/l, no wheezes or crackles. Abdomen: Obese, Soft, non-tender, no rigidity. NABS in all 4 quadrants. Extremities: edema at the right knee Neurological: Unable to eval due to mental status. Rest of the physical exam is non contributory - Assessment and Plan (1) Anemia Current Visit: Yes Status: Acute Assessment and Plan: H7H has been stable post PRBCs transfusion. will continue to monitor on ferrous sulfate 325mg/PO BID. (2) Status post total knee replacement Current Visit: Yes Status: Acute Assessment and Plan: plan of care as per Othopedic team. caution needed with pain controlled. due to delirium (3) HTN (hypertension) Current Visit: Yes Status: Chronic Assessment and Plan: BP has been well controlled. continue metoprolol 75mg/PO BID. started on low dose furosemide 20mg/PO daily. (4) Diabetes mellitus Current Visit: Yes Status: Chronic Assessment and Plan: Blood sugar running in the 93s. decrease levemir to 30 units BID to avoid hypoglycemia continue carbs controlled diet and lispro medium dose sliding scale. (5) Chronic atrial fibrillation Current Visit: Yes Status: Chronic Assessment and Plan: Rate has been controlled. On metoprolol 75mg/PO BID. Not on full dose anticoagulation due to high risk of falls. (6) CAD (coronary artery disease) Current Visit: Yes Status: Chronic Assessment and Plan: patient on clopidogrel 75mg/PO daily and aspirin 81mg/PO daily. (7) Leukocytosis (leucocytosis) Current Visit: Yes Status: Acute Assessment and Plan: Neutrophils predominant. Possible due to pain. vs acute bronchitis will r/o UTI Patient started on empiric antibiotics levolofloxacin 750mg/IV daily as patient have been spiking low grade fever. x-ray of the right knee. UA ordered, pending Blood culture: no growth pending final report. (8) Seizure Current Visit: Yes Status: Acute Assessment and Plan: continue Keppra 500mg/PO BID. (9) History of pulmonary embolism Current Visit: No Status: Chronic Assessment and Plan: patient not on anticoagulation due Hx of GI bleed. on lovenox prophylactic dose. (10) Dementia Current Visit: No Status: Chronic Assessment and Plan: with an acute change in mental status associated with agitation/delirium. UTI being r/o Head CT unremarkable started on empiric IV antibiotics DVT Prophylaxis: DVT prophylaxis per ortho recommendations. - Summary of Assessment and Plan Summary of Assessment and Plan: Patient pending placement to ECF/SNF. Potential discharge on Wednesday. - Time Spent with Patient Total time spent is greater than 50% in coordination of care (as documented) at patient's floor/unit and/or counseling patient: Greater than 35 minutes (40) Plan of Care Discussed with: nurse Internal Medicine: Result - Labs CBC & Chem 7: 11/02/18 04:54 11/02/18 04:54 Labs: Short CBC 11/01/18 11/02/18 Range/Units 15:52 04:54 WBC 12.1 H 12.0 H (4.3-11.1) K/mcL Hgb 9.7 L 9.3 L (11.5-15.4) g/dL Hct 31.1 L 29.6 L (35.3-44.9) % Plt Count 347 350 (140-400) K/mcL Neutrophils # 9.1 H (1.6-8.9) K/mcL BMP 11/02/18 04:54 Sodium 133 L Potassium 3.6 Chloride 99 Carbon Dioxide 25 BUN 10 Creatinine 0.70 Glucose 93 Calcium 9.4 - ABG Interpretation ABG results: ABG ABG pH 7.52 pH Units (7.32-7.45) H 11/02/18 08:15 ABG pCO2 32 mmHg (35-45) L 11/02/18 08:15 ABG pO2 74 mmHg (85-104) L 11/02/18 08:15 ABG O2 Saturation 96 % (95-98) 11/02/18 08:15 PT/INR, D-dimer PT 11.2 Seconds (9.4-12.1) 10/31/18 16:46 - Impressions Impressions Chest X-Ray 11/01/18 11:19 IMPRESSION: 1. Reticular opacities in a perihilar distribution are favored to represent mild interstitial edema. Bronchitis can have a similar appearance. 2. Cardiomegaly. D/ / 11/01/2018 12:05:08 Heather Mejias MD / laurie Interpreting Provider: Heather Mejias MD Head CT 11/01/18 19:00 IMPRESSION: No acute intracranial abnormality. D/ / Brandyn Ji / Brandyn Ji Interpreting Provider: Brandyn Ji Consult Discharge Plan - Plan Referrals: Jessica Vasquez, UNDERBASTER [Primary Care Provider] - (1) Anemia Qualifiers: Anemia type: unspecified type Qualified Code(s): D64.9 - Anemia, unspecified (2) Status post total knee replacement Qualifiers: Laterality: right Qualified Code(s): Z96.651 - Presence of right artificial knee joint (3) HTN (hypertension) Qualifiers: Hypertension type: unspecified Qualified Code(s): I10 - Essential (primary) hypertension (4) Diabetes mellitus Qualifiers: Diabetes mellitus type: type 2 Diabetes mellitus [employer] insulin use: with [employer] use Diabetes mellitus complication status: with unspecified complications Qualified Code(s): E11.8 - Type 2 diabetes mellitus with unspecified complications; Z79.4 - prompt care rn (current) use of insulin (6) CAD (coronary artery disease) Qualifiers: Coronary Disease-Associated Artery/Lesion type: unspecified vessel or lesion type [place] vs. transplanted heart: unspecified whether [place] or transplanted heart Associated angina: angina presence unspecified Qualified Code(s): I25.10 - Atherosclerotic heart disease of [place] coronary artery without angina pectoris (7) Leukocytosis (leucocytosis) Qualifiers: Leukocytosis type: unspecified Qualified Code(s): D72.829 - Elevated white blood cell count, unspecified (10) Dementia Qualifiers: Dementia type: unspecified type Dementia behavioral disturbance: without behavioral disturbance Qualified Code(s): F03.90 - Unspecified dementia without behavioral disturbance
[2018-11-02 15:40] LABS: Bilirubin,Urine Negative (Negative); Blood,Urine Trace (Negative); Clarity,Urine Clear (Clear); Color,Urine Yellow (Yellow); Glucose,Urine (UA) Normal (Normal); Ketones,Urine 40 mg/dL (Negative); Leukocyte Esterase,Urine Negative (Negative); Nitrite,Urine Negative (Negative); Protein,Urine 100 mg/dL (Neg-Trace); Specific Gravity,Urine 1.007 (1.010-1.025); Urobilinogen,Urine Normal (Normal)
[2018-11-02 15:42] LABS: Bacteria,Urine None Seen per hpf (None-Few); Hyaline Casts,Urine None Seen per lpf (None-Few); RBC,Urine 0-3 per hpf (0-3); Squamous Epithelial Cell,Urine Many per lpf (None-Few); WBC,Urine 0-3 per hpf (0-3)
[2018-11-02] MEDS: *HR* Enoxaparin 30 MG/0.3 ML SYRINGE SQ SCH (17:36)
--- NOTE | 2018-11-02 18:21 | Event Note ---
Date of Encounter: 11/02/18 Time of Encounter: 12:00 PCR: POD#2 Right robotic-assisted Total knee replacement 10/31/18 Danny Patient awake and alert sitting in chair but not oriented to name or place Incision c/d/i Swelling to RLE and tenderness to palpation of right calf - will order doppler No erythema, or warmth Tmax 100.1 overnight, currently 98.4 WBC 12.0 Neurovascularly intact to b/l LE CXR today shows: XR/XR chest 1V portable IMPRESSION: 1. Reticular opacities in a perihilar distribution are favored to represent mild interstitial edema. Bronchitis can have a similar appearance. 2. Cardiomegaly. D/ / 11/01/2018 12:05:08 Heather Mejias MD / laurie CT head showed no abnormalities - Hospitalist has added Furosemide and d/c IV fluids - appreciate their assistance in management of this patient. Concern for CHF exacerbation in addition to anemia of unknown origin -Plavix, ASA, and Lovenox resumed -Hgb has appeared to stabilize H/H today 9.3/29.6 -Patient unable to take PO meds secondary to confusion and hypersomnolence - secondary to patient's chronic AFib - s/w pharmacy and decreased patient's beta man secondary to low normotensive BPs and converted to IVP for the next 24 hours. Will continue to monitor to continue if patient continues to be unsafe to take PO meds. In addition patient did not receive morning Keppra dosing secondary to this same problem on 11/01. She did receive dose today 11/02 -All medications with risk of increased somnolence/confusion held in effort to improve patient's mentation ---oxycodone still on hold -Encouraged nursing to provide extra safety including padding bed rails and frequent monitoring of patient -Keep HOB elevated -Continue PT/OT -ECF plan - needs to be more medically stable before discharge. -Will continue to discuss with hospitalist team - again, appreciate their input and continued workup for her acute mental status change.
[2018-11-02] MEDS: Metoprolol XL (24 HR) Succ 50 MG TAB.ER.24H PO SCH (20:02)
[2018-11-03 03:38] LABS: Basophils % 0.3 %; Eosinophils # 0.2 K/mcL (0.0-0.6); Eosinophils % 1.8 %; Hematocrit 27.5 % (35.3-44.9); Hemoglobin 8.7 g/dL (11.5-15.4); Immature Granulocytes % 0.8 % (0-4); Lymphocytes # 1.1 K/mcL (0.6-4.6); Lymphocytes % 11.5 %; Mean Corpuscular HGB Conc 31.6 g/dL (31.6-35.5); Mean Corpuscular Hemoglobin 23.9 pg (28.0-33.3); Mean Corpuscular Volume 75.5 fL (83.0-100.0); Mean Platelet Volume 9.2 fL (9.4-12.4); Monocytes % 10.5 %; Platelet Count 324 K/mcL (140-400); Red Blood Count 3.64 M/mcL (3.82-4.97); Red Cell Distribution Width 18.8 % (11.5-14.5); Segmented Neutrophils % 75.1 %
[2018-11-03 03:56] LABS: BUN/Creatinine Ratio 16 (6-26); Blood Urea Nitrogen 12 mg/dL (8-23); Calcium 8.9 mg/dL (8.6-10.3); Carbon Dioxide 26 mEq/L (23-29); Chloride 99 mEq/L (98-107); Glucose 136 mg/dL (70-105); Magnesium 1.6 mg/dL (1.6-2.6); Osmolality,Calculated 284 (280-300); Phosphorous 3.5 mg/dL (2.7-4.5); Potassium 3.4 mEq/L (3.5-5.1); Sodium 136 mEq/L (136-145); eGFR For Non-African Americans > 60 (> 60)
[2018-11-03] MEDS: *HR* Acetaminophen w/Cod 300-30 mg 1 TAB TABLET PO PRN ×3 (05:12→23:07)
[2018-11-03] MEDS: *HR* Enoxaparin 100 MG/ML SYRINGE SQ SCH ×2 (05:14→17:05)
[2018-11-03 09:09] LABS: Thyroid Stimulating Hormone 1.597 mcIU/mL (0.340-5.600)
[2018-11-03] MEDS: Furosemide 20 MG/2 ML VIAL IVP SCH (09:19)
[2018-11-03] MEDS: levETIRAcetam 250 MG TABLET PO SCH ×2 (09:19→20:14)
[2018-11-03] MEDS: Aspirin 325 MG TABLET PO SCH (09:19)
[2018-11-03] MEDS: Metoprolol XL (24 HR) Succ 50 MG TAB.ER.24H PO SCH ×2 (09:19→20:14)
[2018-11-03] MEDS: Insulin DETEMIR 100 UNIT/ML X5UNITS SQ SCH ×2 (09:29→21:40)
--- NOTE | 2018-11-03 10:01 | Orthopedics Progress Note ---
Date of Encounter: 11/03/18 Time of Encounter: 10:01 Subjective Interval history: Patient was seen this morning alert and oriented 3 Afebrile vital signs stable. Operative extremity: Neurovascularly intact Dressing clean dry and intact Calves nontender Assessment and plan: Continue with postoperative care Patient doing much better, hemoglobin 8.6 discharged when approved Objective Vital signs: Vital Signs Temp Pulse Resp BP Pulse Ox 11/03/18 07:27 98.8 F 94 16 131/73 95 11/03/18 04:51 97.6 F 99 18 157/99 96 11/02/18 23:27 98.9 F 98 16 142/78 90 11/02/18 18:38 99.0 F 101 17 149/81 91 11/02/18 17:14 98.7 F 102 18 160/75 94 11/02/18 11:54 98.4 F 99 20 138/81 98 11/02/18 11:15 98.9 F 98 18 134/78 97 Intake and Output 11/02/18 11/03/18 11/03/18 23:59 07:59 15:59 Intake Total 100 / 100 Output Total 0 / 0 500 / 500 Balance 100 / 100 -500 / -500 Intake: Oral 100 / 100 Output: Urine 0 / 0 Straight Cath 500 / 500 Other: Weight 95.3 kg 95.3 kg Blood Glucose* 143 145 Patient Weight 11/03/18 23:59 Weight 95.3 kg - Labs CBC & BMP: 11/03/18 03:20 11/03/18 03:20 Labs: Abnormal lab results RBC 3.64 M/mcL (3.82-4.97) L 11/03/18 03:20 Hgb 8.7 g/dL (11.5-15.4) L 11/03/18 03:20 POC Hgb 6.4 g/dL (12.0-16.0) L 10/31/18 09:30 Hct 27.5 % (35.3-44.9) L 11/03/18 03:20 MCV 75.5 fL (83.0-100.0) L 11/03/18 03:20 MCH 23.9 pg (28.0-33.3) L 11/03/18 03:20 RDW 18.8 % (11.5-14.5) H 11/03/18 03:20 MPV 9.2 fL (9.4-12.4) L 11/03/18 03:20 Nucleated RBCs/100 WBC 0.2 /100 WBC (0) H 11/02/18 04:54 Hypochromasia Present (Not Present) A 10/31/18 16:46 Anisocytosis 1+ (Not Present) A 10/31/18 16:46 ABG pH 7.52 pH Units (7.32-7.45) H 11/02/18 08:15 ABG pCO2 32 mmHg (35-45) L 11/02/18 08:15 ABG pO2 74 mmHg (85-104) L 11/02/18 08:15 ABG Total CO2 27 mEq/L (20-26) H 11/02/18 08:15 Potassium 3.4 mEq/L (3.5-5.1) L 11/03/18 03:20 Glucose 136 mg/dL (70-105) H 11/03/18 03:20 POC Glucose 143 mg/dL (70-99) H 11/02/18 19:50 Iron < 10 mcg/dL (50-170) L 10/31/18 16:46 Ferritin < 8 ng/mL (10-120) L 10/31/18 16:46 Ur Specific [place] 1.007 (1.010-1.025) L 11/02/18 15:20 Urine Protein 100 mg/dL (Neg-Trace) H 11/02/18 15:20 Urine Ketones 40 mg/dL (Negative) H 11/02/18 15:20 Urine Blood Trace (Negative) H 11/02/18 15:20 Ur Squamous Epith Cells Many per lpf (None-Few) H 11/02/18 15:20 Nasal Screen MRSA (PCR) Positive (Negative) A 11/02/18 13:20 Consult Discharge Plan - Plan Referrals: Jessica Vasquez, AIR DEFENSE CONTROL OFFICER [Primary Care Provider] -
[2018-11-03] MEDS: Insulin LISPRO 300 UNITS/3 ML VIAL SQ SCH ×3 (13:04→20:04)
[2018-11-03 13:16] LABS: Hematocrit RBC Folate 22.2 %
--- NOTE | 2018-11-03 16:15 | Internal Med Progress Note ---
Hospitalist Progress Note - Encounter Date of Encounter: 11/03/18 Time of Encounter: 11:00 - Subjective Interval History: Interim events noted. Patient is status post right total knee replacement and hospitalist was consulted for AMS and low grade fever. Noted to have questionable finding of bronchitis on CXR and chronic R LE DVT. This morning, she is fully alert and oriented x 4 and denies any significant chest pain, SOB, sputum production, melena, hematochezia, or BRBPR. Afebrile > 24 hours. - Exam Vitals: Temp Pulse Resp BP Pulse Ox 99.1 F 89 18 131/69 95 11/03/18 16:05 11/03/18 16:05 11/03/18 16:05 11/03/18 16:05 11/03/18 16:05 Exam: Vitals: Reviewed. General: Alert and oriented x4. Not in distress Cardiovascular: RRR, Normal S1 & S2 Lungs: mostly clear to auscultation with occasional wheezes Abdomen: Obese, Soft, non-tender Extremities: R LE swellig noted, knee dressing dry and clean Neurological: no focal deficits - Assessment and Plan (1) Status post total knee replacement Current Visit: Yes Status: Acute Assessment and Plan: plan of care as per Orthopedic team. (2) Delirium Current Visit: Yes Status: Acute Assessment and Plan: We were initially consulted on 10/31 for AMS, patient also had fever of 100.8 on 11/01 workup showed mild leukocytosis and CXR finding ?bronchitis UA -ve for LE or nitrite Her previous admission records in 05/2018 and 11/2017 were reviewed. It appears that patient likely has some underlying cognitive impairment, especially in the setting of sundowning that we have seen during her stay this time. I suspect that the etiology of her delirium is multifactorial including recent surgery, urinary retention (was able to subsequently void after a few attempts of straight cath), bronchitis, and undiagnosed early dementia. CT head was unremarkable and B12 level was noted to be borderline low during this admission. since patient had clinical improvement after being started on levaquin, it would be reasonable to complete a 5 day course for bronchitis start the patient on B12 supplement check TSH will need formal evaluation as outpatient including MMSE and MOCA medically clear to be discharged (3) Anemia Current Visit: Yes Status: Acute Assessment and Plan: H7H has been stable post 3U PRBCs transfusion, last one on 11/01 workup shows SHILPA, FOBT -ve continue ferrous sulfate outpatient GI Eval (4) Chronic deep vein thrombosis (DVT) Current Visit: Yes Status: Acute Assessment and Plan: in the setting of recent R TKR lovenox dosage increased to therapeutic dose per primary team FOBT -ve (5) CAD (coronary artery disease) Current Visit: Yes Status: Chronic Assessment and Plan: Pt is not clear why she is on 325mg of ASA rather than 81mg since patient is also started on therapeutic dose of lovenox, will decrease the dose to 81mg QD resume rest of her home meds (6) History of pulmonary embolism Current Visit: No Status: Chronic Assessment and Plan: patient not on anticoagulation due Hx of GI bleed. now with RLE DVT, lovenox increased to therapeutic dose per ortho FOBT -ve (7) HTN (hypertension) Current Visit: Yes Status: Chronic Assessment and Plan: continue home meds (8) Diabetes mellitus Current Visit: Yes Status: Chronic Assessment and Plan: blood glucose 140-150s continue levemir 30 units BID and decrease sliding scale to low dose continue carbs controlled diet (9) Chronic atrial fibrillation Current Visit: Yes Status: Chronic Assessment and Plan: Rate control with bb anticoagulation as above (10) Seizure Current Visit: Yes Status: Acute Assessment and Plan: continue Keppra DVT Prophylaxis: SQ lovenox - Time Spent with Patient Total time spent is greater than 50% in coordination of care (as documented) at patient's floor/unit and/or counseling patient: Plan of Care Discussed with: other (discussed with ortho PA) Internal Medicine: Result - Labs CBC & Chem 7: 11/03/18 03:20 11/03/18 03:20 Labs: Short CBC 11/03/18 Range/Units 03:20 WBC 9.3 (4.3-11.1) K/mcL Hgb 8.7 L (11.5-15.4) g/dL Hct 27.5 L (35.3-44.9) % Plt Count 324 (140-400) K/mcL Neutrophils # 7.0 (1.6-8.9) K/mcL BMP 11/03/18 03:20 Sodium 136 Potassium 3.4 L Chloride 99 Carbon Dioxide 26 BUN 12 Creatinine 0.74 Glucose 136 H Calcium 8.9 - ABG Interpretation ABG results: ABG ABG pH 7.52 pH Units (7.32-7.45) H 11/02/18 08:15 ABG pCO2 32 mmHg (35-45) L 11/02/18 08:15 ABG pO2 74 mmHg (85-104) L 11/02/18 08:15 ABG O2 Saturation 96 % (95-98) 11/02/18 08:15 PT/INR, D-dimer PT 11.2 Seconds (9.4-12.1) 10/31/18 16:46 - Impressions Impressions Knee X-Ray 11/02/18 11:50 IMPRESSION: Stable right knee arthroplasty. D/ / 11/02/2018 14:08:28 Valentino Arauz MD / anh Interpreting Provider: Valentino Arauz MD Consult Discharge Plan - Plan Referrals: Jessica Vasquez, ENTERTAINER OR VARIETY ARTIST [Primary Care Provider] - (1) Status post total knee replacement Qualifiers: Laterality: right Qualified Code(s): Z96.651 - Presence of right artificial knee joint (3) Anemia Qualifiers: Anemia type: iron deficiency Iron deficiency anemia type: unspecified iron deficiency Qualified Code(s): D50.9 - Iron deficiency anemia, unspecified (4) Chronic deep vein thrombosis (DVT) Qualifiers: DVT location: lower extremity Affected thrombotic vein of extremity: popliteal Laterality: right Qualified Code(s): I82.531 - Chronic embolism and thrombosis of right popliteal vein (5) CAD (coronary artery disease) Qualifiers: Coronary Disease-Associated Artery/Lesion type: unspecified vessel or lesion type [place] vs. transplanted heart: unspecified whether [place] or transplanted heart Associated angina: angina presence unspecified Qualified Code(s): I25.10 - Atherosclerotic heart disease of [place] coronary artery without angina pectoris (7) HTN (hypertension) Qualifiers: Hypertension type: unspecified Qualified Code(s): I10 - Essential (primary) hypertension (8) Diabetes mellitus Qualifiers: Diabetes mellitus type: type 2 Diabetes mellitus oil heaterman insulin use: with group home use Diabetes mellitus complication status: with unspecified complications Qualified Code(s): E11.8 - Type 2 diabetes mellitus with unspecified complications; Z79.4 - [facility] (current) use of insulin
[2018-11-03] MEDS: Ringers Solution, Lactated 1,000 ML IVC SCH (20:02)
[2018-11-03] MEDS ORDERED: Ketorolac 15 MG/ML VIAL IVP ONE (20:53)
[2018-11-03] MEDS ORDERED: Insulin LISPRO 300 UNITS/3 ML VIAL SQ SCH (21:00)
--- NOTE | 2018-11-03 21:31 | Event Note ---
Date of Encounter: 11/03/18 Time of Encounter: 18:00 PCR: POD#3 Right robotic-assisted Total knee replacement 10/31/18 Danny Patient awake, A&O x3, able to fully answer all questions today appropriately, much improved compared to yesterday. Incision c/d/i Doppler yesterday - chronic DVT noted to right superficial femoral and right popliteal vein - lovenox dose was adjusted. no calf tenderness to day, decreased swelling and not as tight No erythema, or warmth afebrile, VS stable H/H: 8.7/27.5, stable has received total of 3 units RBC transfusions (2 on 10/31 and 1 on 11/01) Neurovascularly intact to b/l LE CT head showed no abnormalities questionable bronchitis on CXR - will finish 5 day course of levoquin UA negative for bacteria. Appreciate hospitalists work up of altered mental status and their recommendations - Patient has had same experience of altered mental status after previous surgeries and some element of possible underlying dementia. Hospitalist recommendations for B12 supplementation and check TSH. Anemia - there were no found causes for her anemia before surgery. Recommendation for full GI work up outpatient basis, will need formal evaluation as outpatient including MMSE and MOCA. continue with ferrous sulfate supplementation. Keep HOB elevated Continue PT/OT Discharge plan: ECF tomorrow
[2018-11-04] MEDS: Levofloxacin 750 MG/150 ML 750 MG/150 ML BAG IVPB SCH (00:07)
[2018-11-04] MEDS: *HR* Enoxaparin 100 MG/ML SYRINGE SQ SCH (05:27)
[2018-11-04 06:04] LABS: Hematocrit 29.6 % (35.3-44.9); Hemoglobin 9.1 g/dL (11.5-15.4); Mean Corpuscular HGB Conc 30.7 g/dL (31.6-35.5); Mean Corpuscular Hemoglobin 23.7 pg (28.0-33.3); Mean Corpuscular Volume 77.1 fL (83.0-100.0); Mean Platelet Volume 9.3 fL (9.4-12.4); Platelet Count 347 K/mcL (140-400); Red Blood Count 3.84 M/mcL (3.82-4.97); Red Cell Distribution Width 19.3 % (11.5-14.5)
--- NOTE | 2018-11-04 06:35 | Orthopedics Progress Note ---
Date of Encounter: 11/04/18 Time of Encounter: 06:35 Subjective Interval history: Patient was seen this morning doing very well Afebrile vital signs stable. Operative extremity: Neurovascularly intact Dressing clean dry and intact Calves nontender Assessment and plan: Continue with postoperative care Patient doing much better, hemoglobin 9.1 discharged when approved Objective Vital signs: Vital Signs Temp Pulse Resp BP Pulse Ox 11/04/18 05:09 98.0 F 82 16 145/76 96 11/04/18 00:21 98.6 F 84 14 106/68 92 11/03/18 18:34 98.9 F 93 14 125/77 93 11/03/18 16:05 99.1 F 89 18 131/69 95 11/03/18 12:45 99.3 F 94 17 124/71 95 11/03/18 07:27 98.8 F 94 16 131/73 95 Intake and Output 11/03/18 11/03/18 11/04/18 15:59 23:59 07:59 Intake Total 240 / 240 3592 / 3592 150 / 150 Output Total 550 / 550 0 / 0 Balance -310 / -310 3592 / 3592 150 / 150 Intake: IV Fluids 2812 / 2812 150 / 150 Levaquin Premix 750mg/150 mL 150 / 150 150 / 150 750 mg In 150 ml @ 100 mls/hr IVPB Q24H [facility] Rx#:[id number] Oral 240 / 240 780 / 780 Output: Urine 550 / 550 0 / 0 Other: Meal Lunch Dinner Percent of Meal Consumed 75% 15% Stool Size Small Stool Consistency formed Stool Color Brown # Voids 350 # Bowel Movements 1 Weight 98.6 kg Blood Glucose* 154 181 Patient Weight 11/04/18 23:59 Weight 98.6 kg - Labs CBC & BMP: 11/04/18 05:53 11/03/18 03:20 Labs: Abnormal lab results Hgb 9.1 g/dL (11.5-15.4) L 11/04/18 05:53 POC Hgb 6.4 g/dL (12.0-16.0) L 10/31/18 09:30 Hct 29.6 % (35.3-44.9) L 11/04/18 05:53 MCV 77.1 fL (83.0-100.0) L 12/07/18 05:53 MCH 23.7 pg (28.0-33.3) L 11/04/18 05:53 MCHC 30.7 g/dL (31.6-35.5) L 11/04/18 05:53 RDW 19.3 % (11.5-14.5) H 11/04/18 05:53 MPV 9.3 fL (9.4-12.4) L 11/04/18 05:53 Nucleated RBCs/100 WBC 0.2 /100 WBC (0) H 11/02/18 04:54 Hypochromasia Present (Not Present) A 10/31/18 16:46 Anisocytosis 1+ (Not Present) A 10/31/18 16:46 ABG pH 7.52 pH Units (7.32-7.45) H 11/02/18 08:15 ABG pCO2 32 mmHg (35-45) L 11/02/18 08:15 ABG pO2 74 mmHg (85-104) L 11/02/18 08:15 ABG Total CO2 27 mEq/L (20-26) H 11/02/18 08:15 Potassium 3.4 mEq/L (3.5-5.1) L 11/03/18 03:20 Glucose 136 mg/dL (70-105) H 11/03/18 03:20 POC Glucose 163 mg/dL (70-99) H 11/03/18 16:41 Iron < 10 mcg/dL (50-170) L 10/31/18 16:46 Ferritin < 8 ng/mL (10-120) L 10/31/18 16:46 Ur Specific [place] 1.007 (1.010-1.025) L 11/02/18 15:20 Urine Protein 100 mg/dL (Neg-Trace) H 11/02/18 15:20 Urine Ketones 40 mg/dL (Negative) H 11/02/18 15:20 Urine Blood Trace (Negative) H 11/02/18 15:20 Ur Squamous Epith Cells Many per lpf (None-Few) H 11/02/18 15:20 Nasal Screen MRSA (PCR) Positive (Negative) A 11/02/18 13:20 Consult Discharge Plan - Plan Referrals: Jessica Vasquez, PHYSICS TECHNICIAN [Primary Care Provider] -
[2018-11-04 06:44] LABS: BUN/Creatinine Ratio 18 (6-26); Blood Urea Nitrogen 18 mg/dL (8-23); Calcium 9.2 mg/dL (8.6-10.3); Carbon Dioxide 26 mEq/L (23-29); Chloride 101 mEq/L (98-107); Glucose 90 mg/dL (70-105); Osmolality,Calculated 287 (280-300); Potassium 3.4 mEq/L (3.5-5.1); Sodium 138 mEq/L (136-145); eGFR For Non-African Americans 56 (> 60)
[2018-11-04] MEDS: Insulin LISPRO 300 UNITS/3 ML VIAL SQ SCH ×2 (08:01→12:28)
[2018-11-04] MEDS: levETIRAcetam 250 MG TABLET PO SCH (08:03)
[2018-11-04] MEDS: *HR* Acetaminophen w/Cod 300-30 mg 1 TAB TABLET PO PRN ×2 (08:03→16:15)
[2018-11-04] MEDS: Metoprolol XL (24 HR) Succ 50 MG TAB.ER.24H PO SCH (08:03)
[2018-11-04] MEDS: Insulin DETEMIR 100 UNIT/ML X5UNITS SQ SCH (08:04)
[2018-11-04] MEDS ORDERED: Aspirin Enteric Coated 81 MG Tablet PO SCH (09:00)
[2018-11-04 11:09] VITALS: BP 109/65
--- NOTE | 2018-11-04 12:40 | Internal Med Progress Note ---
Hospitalist Progress Note - Encounter Date of Encounter: 11/04/18 Time of Encounter: 11:00 - Subjective Interval History: No acute events overnight. Continues to remain oriented x 4 and denies any chest pain, SOB, sputum production. Afebrile > 2 days. - Exam Vitals: Temp Pulse Resp BP Pulse Ox 98.9 F 80 16 109/65 91 11/04/18 11:03 11/04/18 11:03 11/04/18 11:03 11/04/18 11:03 11/04/18 11:03 Exam: Vitals: Reviewed. General: Alert and oriented x4. Not in distress Cardiovascular: RRR, Normal S1 & S2 Lungs: mostly clear to auscultation with minimal wheezes Abdomen: Obese, Soft, non-tender Extremities: R LE swellig noted, knee dressing dry and clean Neurological: no focal deficits - Assessment and Plan (1) Status post total knee replacement Current Visit: Yes Status: Acute Assessment and Plan: plan of care as per Orthopedic team. (2) Delirium Current Visit: Yes Status: Acute Assessment and Plan: We were initially consulted on 10/31 for AMS, patient also had fever of 100.8 on 11/01 workup showed mild leukocytosis and CXR finding ?bronchitis UA -ve for LE or nitrite Her previous admission records in 05/2018 and 11/2017 were reviewed. It appears that patient likely has some underlying cognitive impairment, especially in the setting of sundowning that we have seen during her stay this time. I suspect that the etiology of her delirium is multifactorial including recent surgery, urinary retention (was able to subsequently void after a few attempts of straight cath), bronchitis, and undiagnosed early dementia. CT head was unremarkable and B12 level was noted to be borderline low during this admission. TSH WNL since patient had clinical improvement after being started on levaquin, it would be reasonable to complete a 5 day course for bronchitis -> script for 2 additional days of abx provided start B12 supplement -> script provided will need formal evaluation as outpatient including MMSE and MOCA medically clear to be discharged, will sign off. Please call us with questions. (3) Anemia Current Visit: Yes Status: Acute Assessment and Plan: H7H has been stable post 3U PRBCs transfusion, last one on 11/01 workup shows SHILPA, FOBT -ve continue ferrous sulfate outpatient GI Eval (4) Chronic deep vein thrombosis (DVT) Current Visit: Yes Status: Acute Assessment and Plan: in the setting of recent R TKR lovenox dosage increased to therapeutic dose per primary team adjust the dosing of ASA accordingly as I anticipate the pt to be discharged on the current dose of lovenox FOBT -ve (5) CAD (coronary artery disease) Current Visit: Yes Status: Chronic Assessment and Plan: ASA 81mg QD resume rest of her home meds (6) History of pulmonary embolism Current Visit: No Status: Chronic Assessment and Plan: patient not on anticoagulation due Hx of GI bleed. now with RLE DVT, lovenox increased to therapeutic dose per ortho FOBT -ve (7) HTN (hypertension) Current Visit: Yes Status: Chronic Assessment and Plan: continue home meds (8) Diabetes mellitus Current Visit: Yes Status: Chronic Assessment and Plan: continue levemir and low dos sliding scale continue carbs controlled diet (9) Chronic atrial fibrillation Current Visit: Yes Status: Chronic Assessment and Plan: Rate control with bb anticoagulation as above (10) Seizure Current Visit: Yes Status: Acute Assessment and Plan: continue Keppra - Time Spent with Patient Total time spent is greater than 50% in coordination of care (as documented) at patient's floor/unit and/or counseling patient: Plan of Care Discussed with: patient Internal Medicine: Result - Labs CBC & Chem 7: 11/04/18 05:53 11/04/18 05:53 Labs: Short CBC 11/04/18 Range/Units 05:53 WBC 7.3 (4.3-11.1) K/mcL Hgb 9.1 L (11.5-15.4) g/dL Hct 29.6 L (35.3-44.9) % Plt Count 347 (140-400) K/mcL BMP 11/04/18 05:53 Sodium 138 Potassium 3.4 L Chloride 101 Carbon Dioxide 26 BUN 18 Creatinine 1.00 Glucose 90 Calcium 9.2 - ABG Interpretation ABG results: ABG ABG pH 7.52 pH Units (7.32-7.45) H 11/02/18 08:15 ABG pCO2 32 mmHg (35-45) L 11/02/18 08:15 ABG pO2 74 mmHg (85-104) L 11/02/18 08:15 ABG O2 Saturation 96 % (95-98) 11/02/18 08:15 PT/INR, D-dimer PT 11.2 Seconds (9.4-12.1) 10/31/18 16:46 Consult Discharge Plan - Plan Referrals: Jessica Vasquez CNP [Primary Care Provider] - Prescriptions: Aspirin Enteric Coated [Aspirin EC] 81 mg PO DAILY #30 tablet. Cyanocobalamin (B-12) [Vitamin B12] 1,000 mcg PO DAILY #30 tablet levoFLOXacin [Levaquin] 750 mg PO DAILY 2 Days #2 tablet __ (1) Status post total knee replacement Qualifiers: Laterality: right Qualified Code(s): Z96.651 - Presence of right artificial knee joint (3) Anemia Qualifiers: Anemia type: iron deficiency Iron deficiency anemia type: unspecified iron deficiency Qualified Code(s): D50.9 - Iron deficiency anemia, unspecified (4) Chronic deep vein thrombosis (DVT) Qualifiers: DVT location: lower extremity Affected thrombotic vein of extremity: popliteal Laterality: right Qualified Code(s): I82.531 - Chronic embolism and thrombosis of right popliteal vein (5) CAD (coronary artery disease) Qualifiers: Coronary Disease-Associated Artery/Lesion type: unspecified vessel or lesion type [place] vs. transplanted heart: unspecified whether [place] or transplanted heart Associated angina: angina presence unspecified Qualified Code(s): I25.10 - Atherosclerotic heart disease of [place] coronary artery without angina pectoris (7) HTN (hypertension) Qualifiers: Hypertension type: unspecified Qualified Code(s): I10 - Essential (primary) hypertension (8) Diabetes mellitus Qualifiers: Diabetes mellitus type: type 2 Diabetes mellitus usp insulin use: with usp use Diabetes mellitus complication status: with unspecified complications Qualified Code(s): E11.8 - Type 2 diabetes mellitus with unspecified complications; Z79.4 - [facility] ([facility] use of insulin
--- NOTE | 2018-11-04 13:10 | Physician Discharge Referral ---
ExtendedCare Referral Info Transfer To: [facility] Provider in Charge: Delgado - Diagnosis (1) Status post total knee replacement Priority: Primary Status: Acute (2) Anemia Priority: Secondary Status: Acute (3) Chronic deep vein thrombosis (DVT) Priority: Secondary Status: Acute (4) Delirium Priority: Secondary Status: Acute (5) Leukocytosis (leucocytosis) Priority: Secondary Status: Acute (6) Seizure Priority: Secondary Status: Acute (7) CAD (coronary artery disease) Priority: Secondary Status: Chronic (8) Chronic atrial fibrillation Priority: Secondary Status: Chronic (9) Diabetes mellitus Priority: Secondary Status: Chronic (10) Focal seizures Priority: Secondary Status: Chronic (11) HLD (hyperlipidemia) Priority: Secondary Status: Chronic (12) HTN (hypertension) Priority: Secondary Status: Chronic (13) History of heart artery stent Priority: Secondary Status: Chronic (14) skilled nursing current use of anticoagulant Priority: Secondary Status: Chronic (15) Osteoarthritis of right knee Priority: Secondary Status: Chronic (16) Acute blood loss as cause of postoperative anemia Priority: Secondary Status: Acute (17) Atrial fibrillation Priority: Secondary Status: Acute (18) DVT (deep venous thrombosis) Priority: Secondary Status: Acute (19) Hip fracture, left Priority: Secondary Status: Acute (20) Status post total hip replacement, left Priority: Secondary Status: Acute (21) Acute depression Priority: Secondary Status: Chronic (22) Arthritis of left hip Priority: Secondary Status: Chronic (23) CAD (coronary artery disease) Priority: Secondary Status: Chronic (24) Dementia Priority: Secondary Status: Chronic (25) History of pulmonary embolism Priority: Secondary Status: Chronic (26) Hypertension Priority: Secondary Status: Chronic (27) Tobacco abuse Priority: Secondary Status: Chronic (28) Type 2 diabetes mellitus Priority: Secondary Status: Chronic Expected Duration of Placement: <30 days Prognosis: Good Aware of Diagnosis: Patient Aware of Prognosis: Patient - Transfer Medications Prescriptions: Aspirin Enteric Coated [Aspirin EC] 81 mg PO DAILY #30 tablet. Cyanocobalamin (B-12) [Vitamin B12] 1,000 mcg PO DAILY #30 tablet levoFLOXacin [Levaquin] 750 mg PO DAILY 2 Days #2 tablet Home Medications: Atorvastatin [Lipitor] 40 mg PO DAILY 06/22/17 [History] Amitriptyline [Elavil] 50 mg PO HS 04/18/18 [History] Cyclobenzaprine HCl 5 mg PO BID PRN 12/03/18 [History] Docusate Sodium [Colace] 100 mg PO BID 5 Days #10 capsule 10/31/18 [Rx] Ferrous Sulfate [Iron] 325 mg PO DAILY 10/31/18 [History] Gabapentin [Neurontin] 600 mg PO TID 10/31/18 [History] Insulin Glargine,Hum.rec.anlog [Basaglar Kwikpen U-100] 41 unit SQ BID 10/31/18 [History] LevETIRAcetam [Keppra] 500 mg PO BID 10/31/18 [History] Metoprolol Succinate [Toprol Xl] 75 mg PO BID 10/31/18 [History] Omeprazole [PriLOSEC] 40 mg PO DAILY 10/31/18 [History] OxyCODONE Immed Rel [Roxicodone 5 MG] 5 mg PO Q6HR PRN 7 Days #28 tablet 10/31/18 [Rx] Paroxetine HCl [Paxil] 40 mg PO DAILY 10/31/18 [History] Aspirin Enteric Coated [Aspirin EC] 81 mg PO DAILY #30 tablet. 11/04/18 [Rx] Cyanocobalamin (B-12) [Vitamin B12] 1,000 mcg PO DAILY #30 tablet 11/04/18 [Rx] Enoxaparin [Lovenox] 90 mg SQ Q12HCO 14 Days syringe 11/04/18 [Rx] levoFLOXacin [Levaquin] 750 mg PO DAILY 2 Days #2 tablet 11/04/18 [Rx] Allergies/Adverse Reactions: Allergy/AdvReac Type Severity Reaction Status Date / Time Penicillins [PCN] Allergy Hives Verified 10/31/18 09:16 rivaroxaban [From Xarelto] Allergy See Verified 10/31/18 09:16 Comments morphine AdvReac See Verified 10/31/18 09:16 Comments NSAIDS (Non-Steroidal AdvReac Palpitation Verified 10/31/18 09:16 Anti-Inflamma s Oxycodone AdvReac Confusion Verified 11/02/18 05:25 - Respiratory Orders Smoking Cessation: Smoking cessation has been advised. For more information, call the [place] Tobacco Quit Line at 7-715-BWMQ-NOW. - Lab Orders Lab Orders: Other (include drug levels w/frequency) (She is to complete 5 day course of levaquin for probable bronchitis - will need to monitor. Will need GI work up outpatient for anemia. monitor B12 levels Will need MMSE and MOCA evaluation for possible underlying dementia. Will need cardiology follow up for medication review. Currently on lovenox and aspirin and plavix is on hold. Continue to monitor urine output and straight cath as needed, may need urology consult if unable to void on own.) - Ancillary Orders May use pressure relief devices daily prn, May go on [place]WAY[place] w/family/respon constitution party w/meds at nurse discretion PRN, May consult with Dentist, Air Conditioning Unit Tester, Product Marketing Executive PRN - Advance Directives Code Status: Full Code - Mobility Orders Chair, Ambulate - Rehabiliation Orders Rehab Potential: Good Rehab Orders: Evaluation for Physical Therapy, Evaluation for Occupational Therapy - Treatments Skin tear care topically daily PRN per policy List/Other: Knee Continuity: Opsite dressing, leave intact until first post-operative visit. If dressing becomes >50% saturated, contact office, remove dressing and place appropriate dressing in its place. Do not allow for dressing to get wet. Zipline/Grawn in place, plan to remove at post-operative day #14-16. Total Joint Precautions x 6 weeks Apply cold therapy wrap 3-6x/day for 20 minutes at a time. Encourage ambulation throughout the day Use Incentive spirometer 10x/hour. Elevate affected extremity above heart as tolerated. Brace: Wear knee immobilizer at night x 2 weeks. - Diet Orders Regular CERTIFICATION: I certify that the transfer of the above named patient to an Extended Care Facility is necessary for the continuing treatment of the diagnosis listed. The above information is true and accurate reflection of patient's current condition. Confidential - Redisclosure prohibited without a patient's written consent.
[2018-11-04] MEDS ORDERED: Insulin DETEMIR 100 UNIT/ML X5UNITS SQ SCH (21:00)
[2018-11-05] MEDS ORDERED: Cyanocobalamin (B-12) 1,000 MCG TABLET PO SCH (09:00)
== END 2018-11-04 16:44 | DRG 470 ==
LOC: SAMDAY 08:39 → 3NENU 13:14 → SUATTDRO 11-01 08:09
PROVIDERS: ADMIT Orthopaedic Surgery; ATTEND Internal Medicine

== ENCOUNTER 2019-05-16 20:24 | Observation (INO) ==
[2019-05-16] MEDS ORDERED: 0.9 % Sodium Chloride 1,000 ML IVC SCH (22:45)
[2019-05-16] MEDS ORDERED: Naloxone 0.4 MG/ML INJ IVP PRN (23:14)
[2019-05-16] MEDS ORDERED: *HR* Dextrose 50 % in Water (Syg) 50 ML SYRINGE IVP PRN (23:14)
[2019-05-16] MEDS ORDERED: Dextrose Gel 15 GM/37.5 ML TUBE PO PRN ×2 (23:14)
--- NOTE | 2019-05-16 23:21 | Internal Med History&Physical ---
Date of Encounter: 05/16/19 Time of Encounter: 23:20 Internal Medicine - H&P: HPI Chief complaint: fatigue Admitted From: Home Plans for Post Hospital Care: Home History of present illness: Sapphire Rollins is a 64 year old woman with hypertension, diabetes, coronary artery disease, as well as knee replacements complicated by DVTs that required anticoagulation temporarily who has suffered from acute blood loss anemia on multiple occasions secondary to GI bleed. Based on chart review her last need for transfusion was in October 2018. While she is no longer on enoxaparin for DVT she is now back on dual antiplatelet therapy for her CAD. She has been complaining of progressive fatigue over the last few months and intermittent episodes of black stool. She had blood work sent by her PCP and was called in to [facility] after it was noted to be 6.0 yesterday. A repeat done in the emergency room was 5.8 today. She is transferred here for further care. On my assessment she complains of dyspepsia which is no longer responsive to her regular dose of omeprazole. She also says that she underwent an endoscopy a few months ago at [facility] where she was told she has numerous ulcers. Vitals: Reviewed General: Well-developed woman who appears older than her stated age lying comfortably in bed in no acute distress. Skin: Very pale, warm and dry. HEENT: Moist mucous membranes. + conjunctivae pallor. Neck: No lymphadenopathy. No JVD. No carotid bruits. No palpable thyroid. Chest: Normal thoracic expansion. Normal breath sounds. Clear to auscultation. Heart: Normal S1 & S2; rhythmic. Systolic murmur auscultated in all foci. Abdomen: Non-distended, soft and non-tender to palpation. No peritoneal reaction. Extremities: No clubbing, cyanosis or edema. No calf tenderness. Normal distal pulses. Bilateral knee surgical incision sites noted. Neurological: Awake, alert and oriented to person, place and time. No focal deficits. Psych: Affect appropriate. Assessment/Plan 1. Acute blood loss anemia: Suspect secondary to GI bleed given the report of dark stool and dyspepsia. Will send sample for FOBT and transfuse 2U pRBCs to start with goal Hgb >8.0; keep on IV NS until stabilized. 2. GI bleed: Suspect upper in precedence, possibly from ulcer or angiodysplasic lesions. Start pantoprazole drip tonight and keep NPO for possible endoscopy in the morning. GI consult placed. 3. CAD: Will hold DAPT for now. Unclear if she still needs to be on both medications given the timeline since her last stent. 4. DM: Seemingly well controlled with her last A1C at 6.9%. Will be on insulin sliding scale for now. Past Med Surg Social Fam HX - Past Medical History Medical history: arthritis, cancer, CHF, COPD, coronary artery disease, DVT, diabetes, GERD, GI bleed, hyperlipidemia, hypertension, myocardial infarction, pulmonary embolus, seizures, valvular heart disease, other Additional medical history: MRSA Pneumonia d/c 06/25/17 from [facility] Psychiatric history: anxiety, depression - Past Surgical History Surgical History: angioplasty/stent, breast surgery, , cancer surgery, hip replacement, other, IVC filter Additional surgical history: rt eye,. left hip replacement - Social History Smoking Status: Current every day smoker Smokeless Tobacco Status: No Alcohol use: none Drug use: none - Family History Mother Family Member Ethnicity: Non- Living Status: Still Living Hx Family Cardiac Disorders: Yes (HTN) Hx Family Respiratory Disorders: No Hx Family Cancer: No Hx Family GI Disorders: No Hx Family Endocrine Disorder: No Hx Family Neuromuscular Disorders: No Hx Family Neurologic Disorders: No Hx Family HEENT Disorders: No Hx Family Autoimmune Disorders: No Internal Medicine - H&P: Meds Atorvastatin [Lipitor] 40 mg PO DAILY 06/22/17 [History] Amitriptyline [Elavil] 50 mg PO HS 04/18/18 [History] Cyclobenzaprine HCl 5 mg PO BID PRN 10/31/18 [History] Ferrous Sulfate [Iron] 325 mg PO DAILY 10/31/18 [History] Gabapentin [Neurontin] 600 mg PO TID 10/31/18 [History] Insulin Glargine,Hum.rec.anlog [Basaglar Kwikpen U-100] 41 unit SQ BID 10/31/18 [History] LevETIRAcetam [Keppra] 500 mg PO BID 10/31/18 [History] Metoprolol Succinate [Toprol Xl] 75 mg PO BID 10/31/18 [History] Omeprazole [PriLOSEC] 40 mg PO DAILY 10/31/18 [History] Paroxetine HCl [Paxil] 40 mg PO DAILY 10/31/18 [History] Aspirin Enteric Coated [Aspirin EC] 81 mg PO DAILY #30 tablet. 11/04/18 [Rx] Cyanocobalamin (B-12) [Vitamin B12] 1,000 mcg PO DAILY #30 tablet 11/04/18 [Rx] Allergy/AdvReac Type Severity Reaction Status Date / Time Penicillins [PCN] Allergy Hives Verified 10/31/18 09:16 rivaroxaban [From Xarelto] Allergy See Verified 10/31/18 09:16 Comments morphine AdvReac See Verified 10/31/18 09:16 Comments NSAIDS (Non-Steroidal AdvReac Palpitation Verified 10/31/18 09:16 Anti-Inflamma s oxycodone [Oxycodone] AdvReac Confusion Verified 11/02/18 05:25 All Systems PM: A 10-system review of systems was performed and is negative for pertinent findings except as documented above in the HPI. - Constitutional Vitals: Temp Pulse Resp BP Pulse Ox 98.3 F 90 15 126/72 99 05/16/19 22:34 05/16/19 22:34 05/16/19 22:34 05/16/19 22:34 05/16/19 22:34 Exam: . - Time Spent With Patient Total time spent is greater than 50% in coordination of care (as documented) at patient's floor/unit and/or counseling patient: Greater than 35 minutes
[2019-05-16] MEDS: Pantoprazole 40 MG in 0.9 % Sodium Chloride Mini Bag 100 ML IVC SCH (23:54)
[2019-05-17] MEDS: OXYCODONE Oral CONC 10 MG/0.5 ML ORAL.SYG SL PRN ×3 (00:43→21:09)
[2019-05-17] MEDS: Insulin LISPRO 300 UNITS/3 ML VIAL SQ SCH ×4 (00:49→18:33)
[2019-05-17] MEDS: Ipratropium/Albuterol Neb 3 ML IH PRN ×3 (00:55→22:58)
[2019-05-17] MEDS ORDERED: 0.9 % Sodium Chloride 250 ML ONE ×2 (01:40→05:05)
[2019-05-17] MEDS: Pantoprazole 40 MG in 0.9 % Sodium Chloride Mini Bag 100 ML IVC SCH (04:40)
--- NOTE | 2019-05-17 08:36 | Internal Med Progress Note ---
Hospitalist Progress Note - Encounter Date of Encounter: 05/17/19 Time of Encounter: 08:35 - Subjective Interval History: No acute events overnight - Exam Vitals: Temp Pulse Resp BP Pulse Ox 97.8 F 65 16 135/74 98 05/17/19 05:41 05/17/19 05:41 05/17/19 05:41 05/17/19 05:41 05/17/19 05:00 Exam: General appearance: Present: A&O X 3, no acute distress Head exam: Present: normocephalic Respiratory exam: Present: CTAB. Absent: accessory muscle use, rales, rhonchi, wheezes Cardiovascular exam: Present: RRR, +S1, +S2. Absent: diastolic murmur, gallop, rubs, systolic murmur GI/Abdominal exam: Soft, NT, ND, +BS Extremities exam: Absent: pedal edema Neurological exam: Present: alert, oriented X3, no focal deficits. Absent: altered - Assessment and Plan (1) Acute upper GI bleed Current Visit: Yes Status: Acute Assessment and Plan: Pt comes in with acute blood loss anemia likely secondary to acute GI bleed On protonix BID. NPO, IV fluids, plan for endoscopy today (2) Diabetes mellitus Current Visit: Yes Status: Acute Assessment and Plan: Continue insulin and monitor fingersticks (3) Coronary artery disease Current Visit: Yes Status: Acute Assessment and Plan: Hold aspirin and plavix (4) DVT prophylaxis Current Visit: Yes Status: Acute Assessment and Plan: SCDs - Time Spent with Patient Total time spent is greater than 50% in coordination of care (as documented) at patient's floor/unit and/or counseling patient: Internal Medicine: Result - Labs CBC & Chem 7: 05/17/19 10:24 Consult Discharge Plan - Plan Referrals: Jessica Vasquez, [employer] [Primary Care Provider] -
[2019-05-17] MEDS: Gabapentin 300 MG CAPSULE PO SCH ×3 (09:46→20:52)
[2019-05-17] MEDS: levETIRAcetam 250 MG TABLET PO SCH ×2 (09:46→20:53)
[2019-05-17] MEDS: Metoprolol XL (24 HR) Succ 50 MG TAB.ER.24H PO SCH ×2 (09:46→20:52)
[2019-05-17] MEDS: Pantoprazole 40 MG VIAL IVP SCH ×2 (09:46→18:31)
--- NOTE | 2019-05-17 10:41 | Anesthesia Evaluation PreOp ---
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: Seizures (well controlled on meds) Other Medical History: Diabetes Type II, GERD (hiatal hernia) Anesthesia History: No Prior Anesthetic Complications, Past Anesthesia Alcohol Use: none Drug use: none Medications and Allergies Atorvastatin [Lipitor] 40 mg PO DAILY 06/22/17 [History] Amitriptyline [Elavil] 50 mg PO HS 04/18/18 [History] Cyclobenzaprine HCl 5 mg PO BID PRN 10/31/18 [History] Ferrous Sulfate [Iron] 325 mg PO DAILY 10/31/18 [History] Gabapentin [Neurontin] 600 mg PO TID 10/31/18 [History] Insulin Glargine,Hum.rec.anlog [Tex Gallagher U-100] 41 unit SQ BID 10/31/18 [History] LevETIRAcetam [Keppra] 50 mg PO BID 10/31/18 [History] Metoprolol Succinate [Toprol Xl] 50 mg PO BID 10/31/18 [History] Omeprazole [PriLOSEC] 40 mg PO DAILY 10/31/18 [History] Paroxetine HCl [Paxil] 45 mg PO DAILY 10/31/18 [History] Aspirin Enteric Coated [Aspirin EC] 81 mg PO DAILY #30 tablet. 11/04/18 [Rx] Cyanocobalamin (B-12) [Vitamin B12] 1,000 mcg PO DAILY #30 tablet 11/04/18 [Rx] Allergy/AdvReac Type Severity Reaction Status Date / Time Penicillins [PCN] Allergy Hives Verified 10/31/18 09:16 rivaroxaban [From Xarelto] Allergy See Verified 10/31/18 09:16 Comments morphine AdvReac See Verified 10/31/18 09:16 Comments NSAIDS (Non-Steroidal AdvReac Palpitation Verified 10/31/18 09:16 Anti-Inflamma s oxycodone [Oxycodone] AdvReac Confusion Verified 11/02/18 05:25 - Meds/Allergy Pre-op Review Medications Reviewed: Yes Allergies Reviewed: Yes Beta Blockers on Current Med List: Yes If Beta Blockers taken, Date/Time (Last Dose taken): 05/17/2019 at 0946 Anesthesia Results - Labs 05/17/19 10:24 Laboratory Tests 05/16/19 05/16/19 19:19 19:19 WBC 13.3 H Hgb 5.8 L* Hct 21.6 L Plt Count 361 Sodium 132 L Potassium 3.9 BUN 19 Creatinine 1.49 H - Imaging EKG: report reviewed (06/02/2018 SINUS RHYTHM LEFT ATRIAL ENLARGEMENT BASELINE ARTIFACT) Additional studies: 12/20/2017 Echo Impressions: LVEF 60%. Normal LV chamber size and function. Mild concentric left ventricular hypertrophy. Mild left ventricular diastolic dysfunction. Normal right ventricular structure and function. Moderately calcified aortic valve leaflets. Moderate aortic stenosis. Mean gradient 22 mmHg. Peak velocity 3.01 m/s. No evidence of pulmonary hypertension. Compared to prior report from 10/11/2017, LVEF has improved. 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
[2019-05-17 10:42] LABS: Hematocrit 27.9 % (35.3-44.9); Hemoglobin 7.9 g/dL (11.5-15.4)
--- NOTE | 2019-05-17 12:20 | Gastroenterology Consult Note ---
Date of Encounter: 05/17/19 Time of Encounter: 10:15 - Assessment and plan (1) Iron deficiency anemia Current Visit: No Status: Chronic Assessment and plan: Hgb 6 on 05/15. Hgb 5.8 yesterday and 7.9 this AM. Continue to monitor CBC and transfuse PRBC as needed. Iron <10, give one dose IV iron now and repeat in 2 weeks. Plan for EGD today to r/o esophagitis, gastritis, duodenitis, PUD, MW tear, or AVM. Keep NPO for scope. Qualifiers: Iron deficiency anemia type: chronic blood loss Qualified Code(s): D50.0 - Iron deficiency anemia secondary to blood loss (chronic) - Time Spent With Patient Total time spent is greater than 50% in coordination of care (as documented) at patient's floor/unit and/or counseling patient: GI History of Present Illness - Data of Consult Patient: new to practice Consult date: 05/17/19 Requesting Physician: Karley Mendoza MD - Consult Narrative Reason for consult: GI bleed, anemia History of present illness: Ms. Rollins is a 64 year old female with PMHx of CHF, COPD, CAD, DVT, DM, GERD, GI bleed, HLD, HTN, OK, PE, who has been complaining of worsening fatigue and shortness of breath over the past few months associated with occasional black stool. She denies any hematochezia or hematemesis. She was sent to the ED by PCP due to Hgb 6 on 05/15. Hgb 5.8 yesterday and 7.9 this AM. She reports having EGD a "few months ago" at [facility] and "over 40 ulcers cauterized". Procedures: EGD at [facility] recently with multiple ulcers treated, per patient report. NSAIDs: ASA Anticoagulation: None Past Med Surg Social Fam HX - Past Medical History Medical history: arthritis, cancer, CHF, COPD, coronary artery disease, DVT, diabetes, GERD, GI bleed, hyperlipidemia, hypertension, myocardial infarction, pulmonary embolus, seizures, valvular heart disease, other Additional medical history: MRSA Pneumonia d/c 06/25/17 from [facility] Psychiatric history: anxiety, depression - Past Surgical History Surgical History: angioplasty/stent, breast surgery, , cancer surgery, hip replacement, other, IVC filter Additional surgical history: rt eye,. left hip replacement - Social History Smoking Status: Current every day smoker Smokeless Tobacco Status: No Alcohol use: none Drug use: none - Family History Mother Family Member Ethnicity: Non- Living Status: Still Living Hx Family Cardiac Disorders: Yes (HTN) Hx Family Respiratory Disorders: No Hx Family Cancer: No Hx Family GI Disorders: No Hx Family Endocrine Disorder: No Hx Family Neuromuscular Disorders: No Hx Family Neurologic Disorders: No Hx Family HEENT Disorders: No Hx Family Autoimmune Disorders: No - Gastrointestinal Gastrointestinal: Present: as per HPI - Constitutional Constitutional: as per HPI - EENT Eyes: as per HPI Ears: Present: as per HPI Nose, mouth and throat: Present: as per HPI - Cardiovascular Cardiovascular ROS: Present: as per HPI - Respiratory Respiratory IM: Present: as per HPI - Genitourinary Genitourinary: Absent: change in color, Urinary frequency - Neurological ROS Neurological GI: Present: as per HPI - Hematologic/Lymphatic Hematologic/Lymphatic pediatric: Present: as per HPI - Musculoskeletal Musculoskeletal ROS GI: Present: as per HPI - Integumentary Integumentary GI: Present: as per HPI - Psychiatric ROS Psychiatric GI: Present: as per HPI - Endocrine Endocrine IM: Present: as per HPI - Constitutional Vitals: Temp Pulse Resp BP Pulse Ox 98.4 F 73 16 158/82 97 05/17/19 10:38 05/17/19 10:38 05/17/19 10:38 05/17/19 10:38 05/17/19 10:38 General appearance: Present: cooperative, A&O X 3, no acute distress, answers questions appropriately - Head Head exam: Present: atraumatic, normocephalic - Eye Eye exam: Present: normal appearance, sclera anicteric - ENT ENT exam: Present: mucous membranes dry - Neck Neck exam general surgery: Present: normal inspection, trachea midline - Respiratory Respiratory exam: Present: decreased breath sounds, wheezes - Cardiovascular Cardiovascular exam: Present: RRR, +S1, +S2 - GI/Abdominal GI/Abdominal exam: Present: soft, no peritoneal signs. Absent: distended, firm, guarding, tenderness - Rectal Rectal exam: Present: deferred - Extremities Exam Extremities exam: Present: warm - Neurological Exam Neurological exam: Present: no focal deficits - Psychiatric Psychiatric exam: Present: normal affect, normal mood - Skin Skin exam: Present: dry, intact, normal color, warm Results - Labs CBC & Chem 7: 05/17/19 10:24 Labs: Entire Visit 05/17/19 10:24 Hgb 7.9 L D Hct 27.9 L Consult Discharge Plan - Plan Referrals: Jessica Vasquez, NICOLETTE [Primary Care Provider] -
[2019-05-17] MEDS ORDERED: Ferumoxytol 510 MG in 0.9 % Sodium Chloride 100 ML IVPB ONE (12:25)
[2019-05-17] MEDS: 0.9 % Sodium Chloride 1,000 ML IVC SCH (13:01)
[2019-05-17] MEDS ORDERED: *HR* PHENYLEPHRINE 1,000 MCG/10 ML SYRINGE IVP ONE (14:22)
[2019-05-17] MEDS ORDERED: Lidocaine -MPF 2% 2 ML VIAL ONE (14:22)
[2019-05-17] MEDS ORDERED: *HR* Propofol 200 MG/20 ML VIAL IVP ONE (14:22)
[2019-05-17 16:52] LABS: Eosinophils % 3.3 %; Lymphocytes % 21.6 %
[2019-05-17 16:54] LABS: Basophils # 0.1 K/mcL (0.0-0.2); Basophils % 0.7 %; Eosinophils # 0.3 K/mcL (0.0-0.6); Hematocrit 27.4 % (35.3-44.9); Hemoglobin 7.6 g/dL (11.5-15.4); Immature Granulocytes % 0.9 % (0-4); Lymphocytes # 1.6 K/mcL (0.6-4.6); Mean Corpuscular HGB Conc 27.7 g/dL (31.6-35.5); Mean Corpuscular Hemoglobin 19.8 pg (28.0-33.3); Mean Corpuscular Volume 71.5 fL (83.0-100.0); Mean Platelet Volume 9.9 fL (9.4-12.4); Monocytes # 0.6 K/mcL (0.0-1.3); Monocytes % 7.8 %; Neutrophils # 4.9 K/mcL (1.6-8.9); Nucleated Red Blood Cells 0.5 /100 WBC (0); Platelet Count 329 K/mcL (140-400); Red Blood Count 3.83 M/mcL (3.82-4.97); Red Cell Distribution Width 23.9 % (11.5-14.5); Segmented Neutrophils % 65.7 %; White Blood Count 7.5 K/mcL (4.3-11.1)
[2019-05-17] MEDS ORDERED: SODIUM CHLORIDE/NAHCO3/KCL/PEG 4,000 ML SOLN.RECON PO ONE (17:00)
[2019-05-17 17:10] LABS: BUN/Creatinine Ratio 12 (6-26); Blood Urea Nitrogen 13 mg/dL (8-23); Calcium 8.9 mg/dL (8.6-10.3); Carbon Dioxide 24 mEq/L (23-29); Chloride 103 mEq/L (98-107); Glucose 170 mg/dL (70-105); Osmolality,Calculated 282 (280-300); Potassium 4.4 mEq/L (3.5-5.1); Sodium 134 mEq/L (136-145); eGFR For African Americans > 60 (> 60); eGFR For Non-African Americans 50 (> 60)
[2019-05-17 18:15] LABS: Anisocytosis 2+ (Not Present); Hypochromasia Present (Not Present); Platelet Estimate Normal (Normal)
[2019-05-17 18:16] LABS: Macrocytosis Present (Not Present); Microcytosis Present (Not Present)
--- NOTE | 2019-05-17 19:04 | Electrocardiograph Report ---
[address] [place], [place] [address] Test Date: 2019-05-16 Pat Name: Sapphire Rollins Department: 115 Room: 3A34 Gender: F Arborer: : 1955 Requested By: Ray Mendoza Order Number: [id number] Reading MD: Herman Marie Measurements Intervals [place] Rate: 79 P: 25 [place]: 162 QRS: 40 QRSD: 109 T: 34 QT: 373 QTc: 407 Interpretive Statements SINUS RHYTHM NONSPECIFIC T-WAVE ABNORMALITY Electronically Signed On 05-17-2019 19:02:49 EDT by Herman Marie
[2019-05-17] MEDS ORDERED: Insulin LISPRO 300 UNITS/3 ML VIAL SQ SCH (21:00)
[2019-05-17] MEDS: Vancomycin Oral Soln 125 MG/2.5 ML UDC PO SCH (22:31)
[2019-05-18] MEDS: 0.9 % Sodium Chloride 1,000 ML IVC SCH ×2 (02:29→13:53)
--- NOTE | 2019-05-18 05:00 | Event Note ---
Date of Encounter: 05/17/19 Time of Encounter: 19:34 Alerted by patient's nurse that patient is positive for C. difficile. By mouth vancomycin ordered 4 times a day to start now as well as contact precautions. Nurse instructed to continue monitoring this patient very closely and alert me immediately of any adverse changes.
[2019-05-18] MEDS: OXYCODONE Oral CONC 10 MG/0.5 ML ORAL.SYG SL PRN ×2 (05:19→13:53)
[2019-05-18 05:24] LABS: Basophils # 0.1 K/mcL (0.0-0.2); Basophils % 0.6 %; Eosinophils # 0.4 K/mcL (0.0-0.6); Eosinophils % 4.8 %; Hematocrit 27.7 % (35.3-44.9); Hemoglobin 7.6 g/dL (11.5-15.4); Immature Granulocytes % 0.7 % (0-4); Lymphocytes # 1.8 K/mcL (0.6-4.6); Lymphocytes % 22.5 %; Mean Corpuscular HGB Conc 27.4 g/dL (31.6-35.5); Mean Corpuscular Hemoglobin 20.3 pg (28.0-33.3); Mean Corpuscular Volume 73.9 fL (83.0-100.0); Mean Platelet Volume 9.5 fL (9.4-12.4); Monocytes # 0.6 K/mcL (0.0-1.3); Monocytes % 7.7 %; Nucleated Red Blood Cells 0.4 /100 WBC (0); Platelet Count 336 K/mcL (140-400); Red Blood Count 3.75 M/mcL (3.82-4.97); Red Cell Distribution Width 23.8 % (11.5-14.5); Segmented Neutrophils % 63.7 %; White Blood Count 8.1 K/mcL (4.3-11.1)
[2019-05-18 05:29] LABS: Neutrophils # 5.2 K/mcL (1.6-8.9)
[2019-05-18 05:44] LABS: BUN/Creatinine Ratio 12 (6-26); Blood Urea Nitrogen 11 mg/dL (8-23); Carbon Dioxide 26 mEq/L (23-29); Chloride 99 mEq/L (98-107); Potassium 4.5 mEq/L (3.5-5.1); Sodium 132 mEq/L (136-145)
[2019-05-18 05:45] LABS: Calcium 8.9 mg/dL (8.6-10.3); Glucose 130 mg/dL (70-105); Magnesium 2.1 mg/dL (1.6-2.6); Osmolality,Calculated 275 (280-300); Phosphorous 3.3 mg/dL (2.7-4.5); eGFR For African Americans > 60 (> 60); eGFR For Non-African Americans 59 (> 60)
[2019-05-18 05:46] LABS: Anisocytosis 3+ (Not Present); Hypochromasia Present (Not Present); Macrocytosis Present (Not Present); Microcytosis Present (Not Present); Platelet Estimate Normal (Normal); Poikilocytosis 1+ (Not Present); Polychromasia 1+ (Not Present)
[2019-05-18] MEDS: Pantoprazole 40 MG VIAL IVP SCH ×2 (06:04→18:45)
[2019-05-18] MEDS: Vancomycin Oral Soln 125 MG/2.5 ML UDC PO SCH ×3 (08:28→18:45)
[2019-05-18] MEDS: Gabapentin 300 MG CAPSULE PO SCH ×2 (08:28→18:45)
[2019-05-18] MEDS: Metoprolol XL (24 HR) Succ 50 MG TAB.ER.24H PO SCH (08:28)
[2019-05-18] MEDS: levETIRAcetam 250 MG TABLET PO SCH (08:28)
[2019-05-18] MEDS: Insulin LISPRO 300 UNITS/3 ML VIAL SQ SCH ×3 (08:29→18:45)
--- NOTE | 2019-05-18 08:31 | Internal Med Progress Note ---
Hospitalist Progress Note - Encounter Date of Encounter: 05/18/19 Time of Encounter: 08:00 - Subjective Interval History: s/p EGD in last 24hrs. For colonoscopy today - Exam Vitals: Temp Pulse Resp BP Pulse Ox 97.9 F 82 16 146/83 95 05/18/19 08:10 05/18/19 08:10 05/18/19 08:10 05/18/19 08:10 05/18/19 08:10 Exam: General appearance: Present: A&O X 3, no acute distress Head exam: Present: normocephalic Respiratory exam: Present: CTAB. Absent: accessory muscle use, rales, rhonchi, wheezes Cardiovascular exam: Present: RRR, +S1, +S2. Absent: diastolic murmur, gallop, rubs, systolic murmur GI/Abdominal exam: Soft, NT, ND, +BS Extremities exam: Absent: pedal edema Neurological exam: Present: alert, oriented X3, no focal deficits. Absent: altered - Assessment and Plan (1) Acute upper GI bleed Current Visit: Yes Status: Acute Assessment and Plan: Pt comes in with acute blood loss anemia likely secondary to acute GI bleed On protonix BID. NPO, IV fluids. Had endoscopy in last 24hrs showing no acute bleeding For colonoscopy today (2) C. difficile diarrhea Current Visit: Yes Status: Acute Assessment and Plan: Pt has recurrent loose stools with positive c diff Started on po vancomycin. Monitor (3) Diabetes mellitus Current Visit: Yes Status: Acute Assessment and Plan: Continue insulin and monitor fingersticks (4) Coronary artery disease Current Visit: Yes Status: Acute Assessment and Plan: Hold aspirin and plavix (5) DVT prophylaxis Current Visit: Yes Status: Acute Assessment and Plan: SCDs - Time Spent with Patient Total time spent is greater than 50% in coordination of care (as documented) at patient's floor/unit and/or counseling patient: Internal Medicine: Result - Labs CBC & Chem 7: 05/18/19 04:35 05/18/19 04:35 Labs: Short CBC 05/17/19 05/17/19 05/18/19 Range/Units 10:24 15:16 04:35 WBC 7.5 8.1 (4.3-11.1) K/mcL Hgb 7.9 L D 7.6 L 7.6 L (11.5-15.4) g/dL Hct 27.9 L 27.4 L 27.7 L (35.3-44.9) % Plt Count 329 336 (140-400) K/mcL Neutrophils # 4.9 5.2 (1.6-8.9) K/mcL BMP 05/17/19 05/18/19 15:16 04:35 Sodium 134 L 132 L Potassium 4.4 4.5 Chloride 103 99 Carbon Dioxide 24 26 BUN 13 11 Creatinine 1.11 0.95 Glucose 170 H 130 H Calcium 8.9 8.9 Consult Discharge Plan - Plan Referrals: Jessica Vasquez, MED[employer]ID ELIGIBILITY SPECIALIST [Primary Care Provider] -
[2019-05-18 15:34] VITALS: BP 147/82
[2019-05-18] MEDS ORDERED: 0.9 % Sodium Chloride 250 ML ONE (18:35)
--- NOTE | 2019-05-19 06:23 | Event Note ---
Date of Encounter: 05/18/19 Time of Encounter: 19:01 Alerted by patient's nurse MILLI Rain that patient wished to leave AMA. Patient was admitted for GI symptoms and was supposed to have a colonoscopy done but it was delayed. Went to see patient who is seated by the nurses station. I asked the patient why she wished to leave AMA. Patient stated she was supposed to have a colonoscopy done which had been delayed and she was tired of waiting around. She stated that the staff had not been supportive of her care. I explained the risks of leaving AMA and what could happen. 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 I conducted a mini mental exam on the pt. who was alert and oriented x3. I once again reiterated the risks of leaving. She stated she was not staying. I instructed the pt. to return to the nearest ED if she began to feel ill which she stated she would, but not to this hospital. Nurse provided AMA paperwork to the pt. for signing. IV access removed.
--- NOTE | 2019-05-19 14:12 | Discharge Summary ---
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 Based on chart review her last need for transfusion was in October 2018. While she is no longer on enoxaparin for DVT she is now back on dual antiplatelet therapy for her CAD. She has been complaining of progressive fatigue over the last few months and intermittent episodes of black stool. She had blood work sent by her PCP and was called in to [facility] after it was noted to be 6.0 yesterday. A repeat done in the emergency room was 5.8 today. She is transferred here for further care. On my assessment she complains of dyspepsia which is no longer responsive to her regular dose of omeprazole. She also says that she underwent an endoscopy a few months ago at [facility] where she was told she has numerous ulcers. She was assessed with acute blood loss anemia secondary to acute GI bleed and transfused 2 units PRBC and started on protonix BID>. She had an endoscopy done showing a large hiatl hernia with no other acute findings. A colonoscopy was planned but she had diarrhea and tested positive for c diff and colonsocopy had to be rescheduled. She was being treated with po vancomycin. She signed out AMA early this am before I got a chance to assess her (2) C. difficile diarrhea Priority: Primary Status: Acute (3) Diabetes mellitus Priority: Primary Status: Acute Qualifiers: Qualified Code(s): E11.9 - Type 2 diabetes mellitus without complications (4) Coronary artery disease Priority: Primary Status: Acute Qualifiers: Qualified Code(s): I25.10 - Atherosclerotic heart disease of [place] coronary artery without angina pectoris (5) DVT prophylaxis Priority: Primary Status: Acute Hospital course: Ms. Rollins is a 64 year old female - Time Spent with Patient Total time spent providing and/or coordinating discharge services: - Discharge Medications Prescriptions: No Action Cyclobenzaprine HCl 5 mg PO BID PRN PRN Reason: Muscle Pain Gabapentin [Neurontin] 600 mg PO TID Insulin Glargine,Hum.rec.anlog [Basaglar Kwikpen U-100] 41 unit SQ BID LevETIRAcetam [Keppra] 500 mg PO BID Metoprolol Succinate [Toprol Xl] 25 - 50 mg PO QAM Omeprazole [PriLOSEC] 40 mg PO QAM Paroxetine HCl [Paxil] 40 mg PO QAM Amitriptyline [Elavil] 50 mg PO HS Aspirin [Adult Aspirin Regimen] 81 mg PO QAM Clopidogrel [Plavix] 75 mg PO HS Furosemide [Lasix] 20 mg PO QAM Insulin ASPART [Novolog Flexpen] 0 unit SQ TIDAC Levocetirizine Dihydrochloride [Allergy Relief (Xyzal)] 5 mg PO QPM PRN PRN Reason: Allergy Symptoms Metoprolol Succinate [Toprol Xl] 50 mg PO QPM Ferrous Gluconate 324 mg PO DAILY Atorvastatin [Lipitor] 40 mg PO HS Home Medications: Atorvastatin [Lipitor] 40 mg PO HS 06/22/17 [History] Cyclobenzaprine HCl 5 mg PO BID PRN 10/31/18 [History] Gabapentin [Neurontin] 600 mg PO TID 10/31/18 [History] Insulin Glargine,Hum.rec.anlog [Basaglar Kwikpen U-100] 41 unit SQ BID 10/31/18 [History] LevETIRAcetam [Keppra] 500 mg PO BID 10/31/18 [History] Metoprolol Succinate [Toprol Xl] 25 - 50 mg PO QAM 10/31/18 [History] Omeprazole [PriLOSEC] 40 mg PO QAM 10/31/18 [History] Paroxetine HCl [Paxil] 40 mg PO QAM 10/31/18 [History] Amitriptyline [Elavil] 50 mg PO HS 05/17/19 [History] Aspirin [Adult Aspirin Regimen] 81 mg PO QAM 05/17/19 [History] Clopidogrel [Plavix] 75 mg PO HS 05/17/19 [History] Ferrous Gluconate 324 mg PO DAILY 05/17/19 [History] Furosemide [Lasix] 20 mg PO QAM 05/17/19 [History] Insulin ASPART [Novolog Flexpen] 0 unit SQ TIDAC 05/17/19 [History] Levocetirizine Dihydrochloride [Allergy Relief (Xyzal)] 5 mg PO QPM PRN 05/17/19 [History] Metoprolol Succinate [Toprol Xl] 50 mg PO QPM 05/17/19 [History] Allergies/Adverse Reactions: Allergy/AdvReac Type Severity Reaction Status Date / Time Penicillins [PCN] Allergy Hives Verified 10/31/18 09:16 rivaroxaban [From Xarelto] Allergy See Verified 10/31/18 09:16 Comments morphine AdvReac See Verified 10/31/18 09:16 Comments NSAIDS (Non-Steroidal AdvReac Palpitation Verified 10/31/18 09:16 Anti-Inflamma s oxycodone [Oxycodone] AdvReac Confusion Verified 11/02/18 05:25 Date of admission: 05/16/19 22:22 Primary care physician: Jessica Vasquez CNP Consults: 05/16/19 23:09 Consult to Gastroenterology [CONS] Routine Consulting Provider: Gastroenterology Faby Reason for Consult: 64 year old woman with hx of GI bleed and anemia requiring transfusions presenting with Hgb <6 on DAPT. Call Completed: No 05/18/19 10:13 Consult to Physical Therapy [CONS] Routine Comment: Evaluate, develop and implement POC Reason for Consult: Deconditioning, increased weakness Does patient have active BEDREST order?: No Is patient medically & hemodynamically stable?: Yes Patient assessed for mobility or mobilized this visit?: No 05/18/19 10:14 Consult to Occupational Therapy [CONS] Routine Comment: Evaluate, develop and implement POC Reason for Consult: Deconditioning, increased weakness Does patient have active BEDREST order?: No Is patient medically & hemodynamically stable?: Yes Patient assessed for mobility or mobilized this visit?: No - Constitutional Vitals: Temp Pulse Resp BP Pulse Ox 98.4 F 67 15 147/82 91 05/18/19 15:34 05/18/19 15:34 05/18/19 15:34 05/18/19 15:34 05/18/19 15:34 Exam: Gen. NAD Neuro- AAOx 3 - Patient Status Disposition: Left Against Medical Advice - Discharge Instructions Follow Up With: Jessica Vasquez CNP [Primary Care Provider] -
== END 2019-05-18 19:30 | disposition left against medical advice (07) ==
LOC: 3ANU
PROVIDERS: ADMIT Internal Medicine; ATTEND Internal Medicine

== ENCOUNTER 2020-05-09 12:43 | Inpatient (IN) ==
[2020-05-09] MEDS ORDERED: Naloxone 0.4 MG/ML INJ IVP PRN (16:17)
[2020-05-09] MEDS ORDERED: Ondansetron 4 MG/2 ML VIAL IVP PRN (16:17)
[2020-05-09] MEDS ORDERED: D5% in Water 1,000 ML IVC PRN (16:24)
[2020-05-09] MEDS ORDERED: Dextrose Gel 15 GM/37.5 ML TUBE PO PRN ×2 (16:24)
[2020-05-09] MEDS ORDERED: *HR* Dextrose 50 % in Water (Syg) 50 ML SYRINGE IVP PRN (16:24)
[2020-05-09] MEDS ORDERED: levoFLOXacin 750 MG/150 ML 750 MG/150 ML BAG IVPB ONE (17:00)
[2020-05-09] MEDS ORDERED: Enoxaparin Weight Dosing SQ SCH (18:00)
[2020-05-09] MEDS: Ipratropium/Albuterol Neb 3 ML IH SCH ×3 (18:03→23:12)
[2020-05-09] MEDS: 0.9 % Sodium Chloride 1,000 ML IVC SCH (18:10)
[2020-05-09] MEDS: *HR* Heparin 5,000 UNIT/ML VIAL SQ SCH (18:11)
[2020-05-09] MEDS: Insulin LISPRO 300 UNITS/3 ML VIAL SQ SCH (18:29)
[2020-05-09] MEDS ORDERED: Morphine Sulfate 2 MG/ML SYRINGE IVP ONE (20:06)
[2020-05-09 20:25] LABS: VBG HCO3 34 mEq/L (21-27); VBG PCO2 57 mmHg (41-51); VBG PH 7.38 pH Units (7.32-7.42); VBG PO2 83 mmHg (25-50)
[2020-05-09] MEDS: Insulin DETEMIR 100 UNIT/ML X5UNITS SQ SCH (21:27)
[2020-05-10] MEDS: Melatonin 3 MG TABLET PO SCH ×2 (00:22→21:05)
[2020-05-10] MEDS: Gabapentin 300 MG CAPSULE PO SCH ×3 (00:22→21:06)
[2020-05-10] MEDS: levETIRAcetam 250 MG TABLET PO SCH ×3 (01:47→21:07)
[2020-05-10] MEDS: Ipratropium/Albuterol Neb 3 ML IH SCH ×3 (03:33→11:00)
[2020-05-10] MEDS: *HR* Heparin 5,000 UNIT/ML VIAL SQ SCH ×2 (05:34→16:53)
[2020-05-10 05:56] LABS: Basophils # 0.1 K/mcL (0.0-0.2); Basophils % 0.4 %; Eosinophils # 0.3 K/mcL (0.0-0.6); Eosinophils % 2.2 %; Hematocrit 32.1 % (35.3-44.9); Hemoglobin 9.9 g/dL (11.5-15.4); Immature Granulocytes % 0.4 % (0-4); Lymphocytes # 1.9 K/mcL (0.6-4.6); Lymphocytes % 13.1 %; Mean Corpuscular HGB Conc 30.8 g/dL (31.6-35.5); Mean Corpuscular Hemoglobin 28.2 pg (28.0-33.3); Mean Corpuscular Volume 91.5 fL (83.0-100.0); Mean Platelet Volume 9.8 fL (9.4-12.4); Monocytes # 0.8 K/mcL (0.0-1.3); Monocytes % 5.7 %; Neutrophils # 11.1 K/mcL (1.6-8.9); Platelet Count 248 K/mcL (140-400); Red Blood Count 3.51 M/mcL (3.82-4.97); Red Cell Distribution Width 15.3 % (11.5-14.5); Segmented Neutrophils % 78.2 %; White Blood Count 14.2 K/mcL (4.3-11.1)
[2020-05-10 06:17] LABS: Calcium 8.5 mg/dL (8.6-10.3); Potassium 3.4 mEq/L (3.5-5.1)
[2020-05-10] MEDS ORDERED: Isovue-370 500 ML BOTTLE IVP ONE (08:02)
[2020-05-10] MEDS ORDERED: Potassium Chloride Elixir 20 MEQ/15 ML UDC PO ONE (08:03)
[2020-05-10] MEDS: Insulin LISPRO 300 UNITS/3 ML VIAL SQ SCH ×3 (08:47→16:54)
[2020-05-10] MEDS: 0.9 % Sodium Chloride 1,000 ML IVC SCH (08:57)
[2020-05-10] MEDS ORDERED: Azithromycin 500 MG in 0.9 % Sodium Chloride 250 ML IVPB SCH (09:00)
[2020-05-10] MEDS ORDERED: cefTRIAXone 2,000 MG in Water for inj. (sterile) 20 ML IVP SCH (09:00)
[2020-05-10] MEDS: *HR* OxyCODONE Immed Rel 5 MG TABLET PO PRN ×3 (10:22→23:08)
[2020-05-10] MEDS ORDERED: MOM Conc 10 ML UD.LIQ PO PRN (10:54)
[2020-05-10] MEDS ORDERED: Bisacodyl 10 MG RECTAL SUPPOSITORY RC PRN (10:54)
[2020-05-10] MEDS ORDERED: Ipratropium/Albuterol Neb 3 ML IH PRN (11:30)
[2020-05-10] MEDS: predniSONE 20 MG TABLET PO SCH (11:57)
[2020-05-10] MEDS: Acetaminophen 325 MG TABLET PO PRN (14:52)
[2020-05-10] MEDS: Albuterol 2.5 MG/3 ML NEBULIZER IH SCH ×3 (15:49→20:32)
[2020-05-10] MEDS: Divalproex Sodium 125 MG CAPSULE PO SCH (21:06)
[2020-05-10] MEDS: Magnesium Oxide 400 MG TABLET PO SCH (21:06)
[2020-05-10] MEDS: clonazePAM 0.5 MG TABLET PO SCH (21:06)
[2020-05-10] MEDS: Metoprolol XL (24 HR) Succ 50 MG TAB.ER.24H PO SCH (21:07)
[2020-05-10] MEDS: QUEtiapine Fumarate 25 MG TABLET PO SCH (21:07)
[2020-05-10] MEDS: Insulin DETEMIR 100 UNIT/ML X5UNITS SQ SCH (21:08)
[2020-05-10] MEDS ORDERED: Insulin LISPRO 300 UNITS/3 ML VIAL SQ ONE (21:38)
[2020-05-11] MEDS: Albuterol 2.5 MG/3 ML NEBULIZER IH SCH ×7 (00:40→23:42)
[2020-05-11 02:52] LABS: VBG HCO3 30 mEq/L (21-27); VBG PCO2 56 mmHg (41-51); VBG PH 7.33 pH Units (7.32-7.42); VBG PO2 104 mmHg (25-50)
[2020-05-11 02:52] LABS: Hematocrit 33.1 % (35.3-44.9); Mean Corpuscular HGB Conc 30.2 g/dL (31.6-35.5); Mean Corpuscular Volume 92.7 fL (83.0-100.0); Mean Platelet Volume 10.2 fL (9.4-12.4); Platelet Count 282 K/mcL (140-400); Red Blood Count 3.57 M/mcL (3.82-4.97); Red Cell Distribution Width 14.7 % (11.5-14.5); White Blood Count 13.5 K/mcL (4.3-11.1)
[2020-05-11 03:28] LABS: BUN/Creatinine Ratio 22 (6-26); Blood Urea Nitrogen 24 mg/dL (8-23); Calcium 9.3 mg/dL (8.6-10.3); Carbon Dioxide 27 mEq/L (23-29); Chloride 99 mEq/L (98-107); Glucose 257 mg/dL (70-105); Magnesium 2.3 mg/dL (1.6-2.6); Osmolality,Calculated 291 (280-300); Potassium 4.8 mEq/L (3.5-5.1); Sodium 134 mEq/L (136-145); eGFR For African Americans > 60 (> 60); eGFR For Non-African Americans 51 (> 60)
[2020-05-11] MEDS: *HR* OxyCODONE Immed Rel 5 MG TABLET PO PRN ×2 (06:46→13:39)
[2020-05-11] MEDS: *HR* Heparin 5,000 UNIT/ML VIAL SQ SCH ×2 (06:46→16:34)
[2020-05-11] MEDS: Insulin LISPRO 300 UNITS/3 ML VIAL SQ SCH ×6 (07:45→16:34)
[2020-05-11] MEDS: Aspirin Enteric Coated 81 MG Tablet PO SCH (07:47)
[2020-05-11] MEDS: predniSONE 20 MG TABLET PO SCH (07:47)
[2020-05-11] MEDS: PARoxetine 20 MG TABLET PO SCH (07:47)
[2020-05-11] MEDS: Divalproex Sodium 125 MG CAPSULE PO SCH ×2 (07:47→20:49)
[2020-05-11] MEDS: Metoprolol XL (24 HR) Succ 50 MG TAB.ER.24H PO SCH ×2 (07:47→20:49)
[2020-05-11] MEDS: levETIRAcetam 250 MG TABLET PO SCH ×2 (07:47→20:49)
[2020-05-11] MEDS: Magnesium Oxide 400 MG TABLET PO SCH ×2 (07:47→20:49)
[2020-05-11] MEDS: Gabapentin 300 MG CAPSULE PO SCH ×2 (07:47→20:49)
[2020-05-11] MEDS: Acetaminophen 325 MG TABLET PO PRN (12:23)
[2020-05-11] MEDS: Bumetanide 1 MG TABLET PO SCH (16:34)
[2020-05-11] MEDS: Nitrofurantoin (BID) 100 MG CAPSULE PO SCH (16:35)
[2020-05-11] MEDS: levoFLOXacin 750 MG/150 ML 750 MG/150 ML BAG IVPB SCH (16:35)
[2020-05-11] MEDS: QUEtiapine Fumarate 25 MG TABLET PO SCH (20:49)
[2020-05-11] MEDS: Insulin DETEMIR 100 UNIT/ML X5UNITS SQ SCH (20:49)
[2020-05-11] MEDS: Melatonin 3 MG TABLET PO SCH (20:49)
[2020-05-11] MEDS: clonazePAM 0.5 MG TABLET PO SCH (20:49)
[2020-05-12] MEDS: Albuterol 2.5 MG/3 ML NEBULIZER IH SCH ×6 (04:10→23:45)
[2020-05-12] MEDS: Acetaminophen 325 MG TABLET PO PRN ×2 (04:44→13:41)
[2020-05-12] MEDS: *HR* Heparin 5,000 UNIT/ML VIAL SQ SCH ×2 (05:19→16:43)
[2020-05-12 05:55] LABS: Basophils % 0.2 %; Eosinophils # 0.1 K/mcL (0.0-0.6); Eosinophils % 0.9 %; Hematocrit 32.3 % (35.3-44.9); Hemoglobin 9.9 g/dL (11.5-15.4); Immature Granulocytes % 0.9 % (0-4); Lymphocytes % 15.5 %; Mean Corpuscular HGB Conc 30.7 g/dL (31.6-35.5); Mean Corpuscular Hemoglobin 27.9 pg (28.0-33.3); Monocytes # 0.8 K/mcL (0.0-1.3); Monocytes % 5.8 %; Neutrophils # 9.9 K/mcL (1.6-8.9); Platelet Count 300 K/mcL (140-400); Red Blood Count 3.55 M/mcL (3.82-4.97); Red Cell Distribution Width 14.8 % (11.5-14.5); Segmented Neutrophils % 76.7 %; White Blood Count 12.9 K/mcL (4.3-11.1)
[2020-05-12] MEDS: Metoprolol XL (24 HR) Succ 50 MG TAB.ER.24H PO SCH ×2 (09:07→21:55)
[2020-05-12] MEDS: Insulin LISPRO 300 UNITS/3 ML VIAL SQ SCH ×6 (09:07→16:45)
[2020-05-12] MEDS: PARoxetine 20 MG TABLET PO SCH (09:08)
[2020-05-12] MEDS: Nitrofurantoin (BID) 100 MG CAPSULE PO SCH ×2 (09:08→16:43)
[2020-05-12] MEDS: Magnesium Oxide 400 MG TABLET PO SCH ×2 (09:08→21:54)
[2020-05-12] MEDS: Divalproex Sodium 125 MG CAPSULE PO SCH ×2 (09:08→21:54)
[2020-05-12] MEDS: Bumetanide 1 MG TABLET PO SCH ×2 (09:08→16:43)
[2020-05-12] MEDS: Aspirin Enteric Coated 81 MG Tablet PO SCH (09:08)
[2020-05-12] MEDS: predniSONE 20 MG TABLET PO SCH (09:08)
[2020-05-12] MEDS: Gabapentin 300 MG CAPSULE PO SCH ×2 (09:08→21:54)
[2020-05-12] MEDS: levETIRAcetam 250 MG TABLET PO SCH ×2 (09:10→21:54)
[2020-05-12] MEDS: *HR* OxyCODONE Immed Rel 5 MG TABLET PO PRN ×2 (14:28)
[2020-05-12] MEDS ORDERED: Methyl Salicylate/Menthol 28 GM TUBE TP PRN (15:34)
[2020-05-12] MEDS ORDERED: Methyl Salicylate/Menthol 57 APPL/57 GM TUBE TP PRN (15:45)
[2020-05-12] MEDS: Melatonin 3 MG TABLET PO SCH (21:53)
[2020-05-12] MEDS: clonazePAM 0.5 MG TABLET PO SCH (21:55)
[2020-05-12] MEDS: QUEtiapine Fumarate 25 MG TABLET PO SCH (21:55)
[2020-05-12] MEDS: Insulin DETEMIR 100 UNIT/ML X5UNITS SQ SCH (21:56)
[2020-05-13 03:24] LABS: Basophils % 0.4 %; Hematocrit 33.5 % (35.3-44.9); Hemoglobin 10.5 g/dL (11.5-15.4); Immature Granulocytes % 1.1 % (0-4); Lymphocytes # 1.3 K/mcL (0.6-4.6); Lymphocytes % 15.6 %; Mean Corpuscular HGB Conc 31.3 g/dL (31.6-35.5); Mean Corpuscular Hemoglobin 28.4 pg (28.0-33.3); Mean Corpuscular Volume 90.5 fL (83.0-100.0); Mean Platelet Volume 10.1 fL (9.4-12.4); Monocytes # 0.4 K/mcL (0.0-1.3); Neutrophils # 6.4 K/mcL (1.6-8.9); Platelet Count 321 K/mcL (140-400); Red Cell Distribution Width 14.6 % (11.5-14.5); Segmented Neutrophils % 77.9 %; White Blood Count 8.2 K/mcL (4.3-11.1)
[2020-05-13 03:33] LABS: Calcium 9.5 mg/dL (8.6-10.3); Magnesium 1.9 mg/dL (1.6-2.6)
[2020-05-13] MEDS: Albuterol 2.5 MG/3 ML NEBULIZER IH SCH ×6 (03:56→23:33)
[2020-05-13] MEDS: *HR* Heparin 5,000 UNIT/ML VIAL SQ SCH ×2 (06:17→16:27)
[2020-05-13] MEDS: Metoprolol XL (24 HR) Succ 50 MG TAB.ER.24H PO SCH ×2 (08:13→21:49)
[2020-05-13] MEDS: Bumetanide 1 MG TABLET PO SCH ×2 (08:13→16:27)
[2020-05-13] MEDS: Gabapentin 300 MG CAPSULE PO SCH ×2 (08:13→21:48)
[2020-05-13] MEDS: levETIRAcetam 250 MG TABLET PO SCH ×2 (08:13→21:49)
[2020-05-13] MEDS: PARoxetine 20 MG TABLET PO SCH (08:13)
[2020-05-13] MEDS: Magnesium Oxide 400 MG TABLET PO SCH ×2 (08:13→21:49)
[2020-05-13] MEDS: Aspirin Enteric Coated 81 MG Tablet PO SCH (08:14)
[2020-05-13] MEDS: Divalproex Sodium 125 MG CAPSULE PO SCH ×2 (08:14→21:49)
[2020-05-13] MEDS: Nitrofurantoin (BID) 100 MG CAPSULE PO SCH ×2 (08:14→16:27)
[2020-05-13] MEDS: Insulin LISPRO 300 UNITS/3 ML VIAL SQ SCH ×6 (08:14→16:28)
[2020-05-13] MEDS: predniSONE 20 MG TABLET PO SCH (08:14)
[2020-05-13] MEDS: *HR* OxyCODONE Immed Rel 5 MG TABLET PO PRN (11:29)
[2020-05-13] MEDS: levoFLOXacin 750 MG/150 ML 750 MG/150 ML BAG IVPB SCH (16:29)
[2020-05-13] MEDS: clonazePAM 0.5 MG TABLET PO SCH (21:48)
[2020-05-13] MEDS: Melatonin 3 MG TABLET PO SCH (21:49)
[2020-05-13] MEDS: Acetaminophen 325 MG TABLET PO PRN (21:49)
[2020-05-13] MEDS: Insulin DETEMIR 100 UNIT/ML X5UNITS SQ SCH (21:50)
[2020-05-13] MEDS: QUEtiapine Fumarate 25 MG TABLET PO SCH (21:50)
[2020-05-14 02:17] LABS: Calcium 9.4 mg/dL (8.6-10.3); Potassium 3.7 mEq/L (3.5-5.1)
[2020-05-14] MEDS: Albuterol 2.5 MG/3 ML NEBULIZER IH SCH ×5 (03:51→19:58)
[2020-05-14] MEDS: *HR* Heparin 5,000 UNIT/ML VIAL SQ SCH ×2 (05:17→18:36)
[2020-05-14] MEDS: Divalproex Sodium 125 MG CAPSULE PO SCH ×2 (08:31→21:46)
[2020-05-14] MEDS: Gabapentin 300 MG CAPSULE PO SCH ×2 (08:31→21:45)
[2020-05-14] MEDS: Bumetanide 1 MG TABLET PO SCH ×2 (08:31→16:35)
[2020-05-14] MEDS: levETIRAcetam 250 MG TABLET PO SCH ×2 (08:31→21:47)
[2020-05-14] MEDS: predniSONE 20 MG TABLET PO SCH (08:32)
[2020-05-14] MEDS: Nitrofurantoin (BID) 100 MG CAPSULE PO SCH ×2 (08:32→16:35)
[2020-05-14] MEDS: Magnesium Oxide 400 MG TABLET PO SCH ×2 (08:32→21:47)
[2020-05-14] MEDS: PARoxetine 20 MG TABLET PO SCH (08:32)
[2020-05-14] MEDS: Aspirin Enteric Coated 81 MG Tablet PO SCH (08:32)
[2020-05-14] MEDS: Metoprolol XL (24 HR) Succ 50 MG TAB.ER.24H PO SCH ×2 (08:32→21:48)
[2020-05-14] MEDS: Insulin LISPRO 300 UNITS/3 ML VIAL SQ SCH ×7 (08:33→21:49)
[2020-05-14] MEDS: Acetaminophen 325 MG TABLET PO PRN (18:40)
[2020-05-14] MEDS: *HR* OxyCODONE Immed Rel 5 MG TABLET PO PRN (21:46)
[2020-05-14] MEDS: Melatonin 3 MG TABLET PO SCH (21:46)
[2020-05-14] MEDS: QUEtiapine Fumarate 25 MG TABLET PO SCH (21:46)
[2020-05-14] MEDS: clonazePAM 0.5 MG TABLET PO SCH (21:47)
[2020-05-14] MEDS: Insulin DETEMIR 100 UNIT/ML X5UNITS SQ SCH (21:48)
[2020-05-15] MEDS: Albuterol 2.5 MG/3 ML NEBULIZER IH SCH ×6 (00:19→20:28)
[2020-05-15 02:36] LABS: Calcium 9.4 mg/dL (8.6-10.3); Potassium 4.1 mEq/L (3.5-5.1)
[2020-05-15] MEDS: *HR* Heparin 5,000 UNIT/ML VIAL SQ SCH ×2 (06:27→16:13)
[2020-05-15] MEDS: Bumetanide 1 MG TABLET PO SCH ×2 (08:07→16:13)
[2020-05-15] MEDS: Magnesium Oxide 400 MG TABLET PO SCH ×2 (08:08→22:23)
[2020-05-15] MEDS: Metoprolol XL (24 HR) Succ 50 MG TAB.ER.24H PO SCH ×2 (08:08→22:47)
[2020-05-15] MEDS: Aspirin Enteric Coated 81 MG Tablet PO SCH (08:09)
[2020-05-15] MEDS: predniSONE 20 MG TABLET PO SCH (08:10)
[2020-05-15] MEDS: levETIRAcetam 250 MG TABLET PO SCH ×2 (08:10→22:24)
[2020-05-15] MEDS: PARoxetine 20 MG TABLET PO SCH (08:11)
[2020-05-15] MEDS: Insulin LISPRO 300 UNITS/3 ML VIAL SQ SCH ×7 (08:11→22:27)
[2020-05-15] MEDS: Nitrofurantoin (BID) 100 MG CAPSULE PO SCH ×2 (08:15→16:13)
[2020-05-15] MEDS: Gabapentin 300 MG CAPSULE PO SCH ×2 (08:15→22:24)
[2020-05-15] MEDS: Divalproex Sodium 125 MG CAPSULE PO SCH ×2 (08:15→22:24)
[2020-05-15] MEDS: *HR* OxyCODONE Immed Rel 5 MG TABLET PO PRN ×2 (10:21→17:30)
[2020-05-15] MEDS: levoFLOXacin 750 MG/150 ML 750 MG/150 ML BAG IVPB SCH (16:13)
[2020-05-15] MEDS: Acetaminophen 325 MG TABLET PO PRN (16:15)
[2020-05-15] MEDS ORDERED: levoFLOXacin 750 MG TABLET PO ONE (17:19)
[2020-05-15] MEDS: clonazePAM 0.5 MG TABLET PO SCH (22:23)
[2020-05-15] MEDS: QUEtiapine Fumarate 25 MG TABLET PO SCH (22:24)
[2020-05-15] MEDS: Melatonin 3 MG TABLET PO SCH (22:24)
[2020-05-15] MEDS: Insulin DETEMIR 100 UNIT/ML X5UNITS SQ SCH (22:27)
[2020-05-16] MEDS: Albuterol 2.5 MG/3 ML NEBULIZER IH SCH ×7 (00:10→23:46)
[2020-05-16] MEDS: *HR* OxyCODONE Immed Rel 5 MG TABLET PO PRN ×2 (01:50→17:35)
[2020-05-16 02:17] LABS: Hematocrit 35.3 % (35.3-44.9); Hemoglobin 11.2 g/dL (11.5-15.4); Mean Corpuscular HGB Conc 31.7 g/dL (31.6-35.5); Mean Corpuscular Hemoglobin 28.9 pg (28.0-33.3); Mean Corpuscular Volume 91.2 fL (83.0-100.0); Mean Platelet Volume 9.6 fL (9.4-12.4); Platelet Count 346 K/mcL (140-400); Red Blood Count 3.87 M/mcL (3.82-4.97); Red Cell Distribution Width 14.4 % (11.5-14.5); White Blood Count 10.6 K/mcL (4.3-11.1)
[2020-05-16 02:32] LABS: Potassium 3.8 mEq/L (3.5-5.1)
[2020-05-16] MEDS: *HR* Heparin 5,000 UNIT/ML VIAL SQ SCH ×2 (05:46→17:21)
[2020-05-16] MEDS ORDERED: 0.9 % Sodium Chloride 500 ML IVC ONE ×2 (07:37→14:52)
[2020-05-16] MEDS ORDERED: Insulin DETEMIR 100 UNIT/ML X5UNITS SQ SCH ×3 (09:00→21:00)
[2020-05-16] MEDS: Insulin LISPRO 300 UNITS/3 ML VIAL SQ SCH ×8 (09:18→21:01)
[2020-05-16] MEDS: Magnesium Oxide 400 MG TABLET PO SCH ×2 (09:19→20:55)
[2020-05-16] MEDS: Bumetanide 1 MG TABLET PO SCH ×2 (09:19→17:21)
[2020-05-16] MEDS: Gabapentin 300 MG CAPSULE PO SCH ×2 (09:19→20:55)
[2020-05-16] MEDS: Metoprolol XL (24 HR) Succ 50 MG TAB.ER.24H PO SCH ×3 (09:19→21:10)
[2020-05-16] MEDS: predniSONE 20 MG TABLET PO SCH (09:19)
[2020-05-16] MEDS: Nitrofurantoin (BID) 100 MG CAPSULE PO SCH ×2 (09:19→17:22)
[2020-05-16] MEDS: levETIRAcetam 250 MG TABLET PO SCH ×2 (09:19→20:55)
[2020-05-16] MEDS: Aspirin Enteric Coated 81 MG Tablet PO SCH (09:20)
[2020-05-16] MEDS: Divalproex Sodium 125 MG CAPSULE PO SCH ×2 (09:20→20:54)
[2020-05-16] MEDS: PARoxetine 20 MG TABLET PO SCH (09:20)
[2020-05-16 14:45] LABS: Calcium 9.7 mg/dL (8.6-10.3); Potassium 3.8 mEq/L (3.5-5.1)
[2020-05-16] MEDS ORDERED: 0.9 % Sodium Chloride 1,000 ML IVC SCH (15:00)
[2020-05-16] MEDS: Melatonin 3 MG TABLET PO SCH (20:54)
[2020-05-16] MEDS: clonazePAM 0.5 MG TABLET PO SCH (20:55)
[2020-05-16] MEDS: QUEtiapine Fumarate 25 MG TABLET PO SCH (20:55)
[2020-05-17] MEDS: Albuterol 2.5 MG/3 ML NEBULIZER IH SCH ×3 (03:45→11:19)
[2020-05-17 03:59] LABS: Hematocrit 34.5 % (35.3-44.9); Hemoglobin 10.7 g/dL (11.5-15.4); Mean Corpuscular Hemoglobin 27.7 pg (28.0-33.3); Mean Corpuscular Volume 89.4 fL (83.0-100.0); Mean Platelet Volume 9.6 fL (9.4-12.4); Platelet Count 363 K/mcL (140-400); Red Blood Count 3.86 M/mcL (3.82-4.97); Red Cell Distribution Width 14.5 % (11.5-14.5); White Blood Count 12.4 K/mcL (4.3-11.1)
[2020-05-17 04:16] LABS: Calcium 8.7 mg/dL (8.6-10.3); Potassium 4.1 mEq/L (3.5-5.1)
[2020-05-17] MEDS: *HR* Heparin 5,000 UNIT/ML VIAL SQ SCH (05:15)
[2020-05-17] MEDS: Magnesium Oxide 400 MG TABLET PO SCH (07:57)
[2020-05-17] MEDS: Gabapentin 300 MG CAPSULE PO SCH (07:57)
[2020-05-17] MEDS: Divalproex Sodium 125 MG CAPSULE PO SCH (07:58)
[2020-05-17] MEDS: levETIRAcetam 250 MG TABLET PO SCH (07:58)
[2020-05-17] MEDS: Aspirin Enteric Coated 81 MG Tablet PO SCH (07:58)
[2020-05-17] MEDS: PARoxetine 20 MG TABLET PO SCH (07:58)
[2020-05-17] MEDS: Metoprolol XL (24 HR) Succ 50 MG TAB.ER.24H PO SCH (07:59)
[2020-05-17] MEDS: Insulin LISPRO 300 UNITS/3 ML VIAL SQ SCH ×4 (07:59→13:14)
[2020-05-17] MEDS: Acetaminophen 325 MG TABLET PO PRN (08:13)
[2020-05-17 09:03] LABS: Basophils % 0.2 %; Eosinophils # 0.2 K/mcL (0.0-0.6); Eosinophils % 1.4 %; Hematocrit 39.5 % (35.3-44.9); Hemoglobin 12.2 g/dL (11.5-15.4); Immature Granulocytes % 8.9 % (0-4); Lymphocytes # 3.3 K/mcL (0.6-4.6); Lymphocytes % 27.8 %; Mean Corpuscular HGB Conc 30.9 g/dL (31.6-35.5); Mean Corpuscular Hemoglobin 27.9 pg (28.0-33.3); Mean Corpuscular Volume 90.2 fL (83.0-100.0); Mean Platelet Volume 9.6 fL (9.4-12.4); Monocytes # 0.8 K/mcL (0.0-1.3); Monocytes % 6.8 %; Neutrophils # 6.5 K/mcL (1.6-8.9); Nucleated Red Blood Cells 0.2 /100 WBC (0); Platelet Count 394 K/mcL (140-400); Red Blood Count 4.38 M/mcL (3.82-4.97); Red Cell Distribution Width 14.6 % (11.5-14.5); Segmented Neutrophils % 54.9 %; White Blood Count 11.8 K/mcL (4.3-11.1)
[2020-05-17 09:52] LABS: Platelet Estimate Normal (Normal)
[2020-05-17] MEDS ORDERED: Insulin DETEMIR 100 UNIT/ML X5UNITS SQ SCH (10:30)
[2020-05-17 12:01] VITALS: BP 111/64
[2020-05-17 14:24] LABS: Bilirubin,Urine Negative (Negative); Blood,Urine Negative (Negative); Clarity,Urine Clear (Clear); Color,Urine Light-Yellow (Yellow); Glucose,Urine (UA) 100 mg/dL (Normal); Hyaline Casts,Urine Few per lpf (None Seen); Ketones,Urine Negative (Negative); Leukocyte Esterase,Urine Trace (Negative); Mucus,Urine Few per lpf (None-Few); Nitrite,Urine Negative (Negative); Protein,Urine Trace mg/dL (Neg-Trace); RBC,Urine 0-3 per hpf (0-3); Specific Gravity,Urine 1.021 (1.010-1.025); Squamous Epithelial Cell,Urine Few per hpf (None-Few); Urobilinogen,Urine Normal (Normal); WBC,Urine 0-3 per hpf (0-3)
== END 2020-05-17 15:49 | DRG 871 ==
LOC: 2ANU → SUATTDRO 15:32
PROVIDERS: ADMIT Internal Medicine; ATTEND Family Medicine